=== PATIENT | female | born 2000 | race Hispanic/Latino ===

== ENCOUNTER 2022-05-21 16:45 | Inpatient (IN) | payer MEDICAID ==
[2022-05-21] MEDS ORDERED: DOCUSATE SODIUM 100 MG CAP PO PRN (19:44)
[2022-05-21] MEDS ORDERED: ACETAMINOPHEN 325 MG TAB PO PRN (19:44)
[2022-05-21] MEDS ORDERED: ONDANSETRON 4 MG/2 ML INJ IV PRN (19:44)
--- NOTE | 2022-05-21 19:44 | History and Physical Report ---
History of Present Illness Date of examination: 05/21/22 Date of admission: 05/21/22 Chief complaint: sent from [facility] due to elevated blood pressures History of present illness: Pt present for evaluation to rule out preE due to having elevated blood pressures at [facility] office. She has elevated blood pressures on admission as well. Pt pregancy has been complicated by anit M antibody positive as well as having and elevated AFP for which she was referred to [facility] for evaluation. Plan of care d/w pt and mother. All risk, benefits and alternatives of treatment were d/w pt and questions were addressed and answered.. EDC Confirmation: 09/19/2022 Gestational Age: 22 5/7 weeks Past History : 1 Term Births: 0 Premature Births: 0 Living Children: 0 Para: 0 Prev : 0 Aborta: 0 Elect. Ab: 0 Spont. Ab: 0 Ectopics: 0 Past Medical History: Reviewed and updated today: [facility] 2020 right leg no hospitalization Past Surgical History: Reviewed and updated today: Negative Past Surgical History Family History Summary: Other Family Member - Has No Family History of Ovarvian Cancer - Entered On: 03/31/2022 Other Family Member - Has No Family History of Colon Cancer - Entered On: 03/31/2022 Other Family Member - Has No Family History of Breast Cancer - Entered On: 03/31/2022 Other Family Member - Has Family History of Hypertension - Entered On: 03/31/2022 Social History: Marital Status: Single Children: 0 Occupation: Unemploted Smoking History: Patient has never smoked. 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 Infection History Hx of STD: chlamydia HIV Risk Eval: low risk Hepatitis B Risk Eval: low risk Genetic History Congenital Heart Defect: Mom: no Dad: no [place] Disease: Mom: no Dad: no Thalassemia Mom: no Dad: no Neural Tube Defect Mom: no Dad: no Down's Syndrome Mom: no Dad: no Karl-Sachs Mom: no Dad: no Sickle Cell Disease/Trait Mom: no Dad: no Hemophilia Mom: no Dad: no Muscular Dystrophy Mom: no Dad: no Cystic Fibrosis Mom: no Dad: no [place] Chorea Mom: no Dad: no Mental Retardation Mom: no Dad: no Fragile X Mom: no Dad: no Other Genetic/Chromosomal Disorder Mom: no Dad: no Child w/other defect Mom: no Dad: no Enviromental Exposures Xray Exposure: no Medication, drug, or alcohol use since LMP: no Chemical/Other Exposure: no Exposure to Cat Liter: no Active Medications (reviewed today): None Current Allergies (reviewed today): No known allergies Past History Past Medical History: no pertinent history Past Surgical History: no surgical history [employer] History: chlamydia Family/Genetic History: other (see hpi) Social history: no significant social history, single - Obstetrical History Expected Date of Delivery: 09/19/22 Actual Gestation: 22 Week(s) 5 Day(s) : 1 Medications and Allergies Allergies Allergy/AdvReac Type Severity Reaction Status Date / Time No Known Allergies Allergy Verified 05/21/22 19:12 - Vital Signs Vital signs: Vital Signs Pulse Pulse Ox 70 98 05/21/22 19:07 05/21/22 19:07 Temp Pulse Resp BP Pulse Ox 98.2 F 66 18 143/94 98 05/21/22 19:23 05/21/22 19:42 05/21/22 19:23 05/21/22 19:09 05/21/22 19:42 - Physical Exam Cardiovascular: Regular rate Lungs: Positive: Normal air movement Abdomen: Positive: normal appearance Genitourinary (Female): Positive: normal external genitalia, other (deferred) Deep Tendon Reflex Grade: Normal +2 - Obstetrical FHR: auscultation normal Uterine Contraction Pattern: Absent Results All other labs normal. Assessment and Plan - Patient Problems (1) 22 weeks gestation of Current Visit: Yes Status: Acute (2) Elevated blood pressure affecting in second trimester, antepartum Current Visit: Yes Status: Acute Plan to address problem: -admit -MgSO4 -labetalol if needed -24 hr urine collection and other pih labs -MFM to see pt in the am -all questions regarding plan of care were d/w pt and all questions were addressed and answered
[2022-05-21] MEDS ORDERED: MAGNESIUM SULFATE 4 GM/100 ML BAG IV ONE (19:49)
[2022-05-21 20:57] LABS: Basophils # (Auto) 0.1 K/mm3 (0.0-0.1); Basophils % (Auto) 0.6 % (0.0-1.8); Eosinophils % (Auto) 0.3 % (0.0-4.3); Hematocrit 35.7 % (30.3-42.9); Hemoglobin 12.5 gm/dl (10.1-14.3); Lymphocytes # (Auto) 2.1 K/mm3 (1.2-5.4); Lymphocytes % (Auto) 14.4 % (13.4-35.0); Mean Corpuscular HGB Conc 35 % (30-34); Mean Corpuscular Volume 87 fl (79-97); Monocytes # (Auto) 0.7 K/mm3 (0.0-0.8); Monocytes % (Auto) 4.4 % (0.0-7.3); Platelet Count 200 K/mm3 (140-440); Red Blood Count 4.11 M/mm3 (3.65-5.03); Red Cell Distribution Width 12.9 % (13.2-15.2)
[2022-05-21] MEDS ORDERED: LACTATED RINGERS 1,000 ML ONE (20:57)
[2022-05-21] MEDS ORDERED: LACTATED RINGERS 1,000 ML IV SCH (21:15)
[2022-05-21] MEDS ORDERED: LIDOCAINE (4%) 40 MG/ML TOPICAL SOLN 50 ML BOTTLE TP ONE (21:34)
[2022-05-21] MEDS: MAGNESIUM SULFATE 40GM/1000ML 40 GM/1,000 ML BAG IV SCH (21:52)
[2022-05-21 21:53] LABS: Alanine Aminotransferase 14 units/L (7-56); Albumin 3.5 g/dL (3.9-5); Blood Urea Nitrogen 12 mg/dL (7-17); Hemolysis Index 6
[2022-05-21 21:54] LABS: Alanine Aminotransferase 14 units/L (7-56); Uric Acid 7.6 mg/dL (3.5-7.6)
[2022-05-21] MEDS ORDERED: LIDOCAINE 2% UROJECT 10 ML JELLY UR ONE (22:00)
[2022-05-21 22:26] LABS: BUN/Creatinine Ratio 17
[2022-05-21] MEDS ORDERED: ZOLPIDEM 5 MG TAB PO PRN (23:07)
--- NOTE | 2022-05-22 00:30 | Event Note ---
Date: 05/22/22 Called by RN as pt states she felt as if she was urinating on her self with the cath in. RN noted moisture on perineum that "was very little and not sure if its her normal discharge." She inquired about ÁNGELA. I educated on possible false positive due to cath placement ect. However agreed with testing being sent. All questions were addressed and answered. Will also increase labetalol to 200bid with next dose.
--- NOTE | 2022-05-22 07:39 | Progress Note ---
Assessment and Plan patient c/o of EPSTEIN but reports she feels better. + FM, u/s coming to help locate and document FHT. Dr. Bautista from [facility] to see patient today. I&O adequate. - Patient Problems (1) 22 weeks gestation of Current Visit: Yes Status: Acute (2) Elevated blood pressure affecting in second trimester, antepartum Current Visit: Yes Status: Acute Plan to address problem: Continue mag 2gm and Labetalol 200mg PO BID 24hr urine in progress Monitor for s/s pre-e Subjective - Subjective Date of service: 05/22/22 Principal diagnosis: IUP @ 22+3; IUGR, elevated blood pressure Patient reports: movement normal, no new complaints, no loss of fluid, no vaginal bleeding, no contractions Objective - Vital Signs Vital Signs: Vital Signs - 12hr 05/21/22 05/21/22 05/21/22 19:42 19:47 19:52 Temperature Pulse Rate 66 64 75 Respiratory Rate Blood Pressure O2 Sat by Pulse 98 98 98 Oximetry 05/21/22 05/21/22 05/21/22 19:57 20:02 20:07 Temperature Pulse Rate 78 91 H 66 Respiratory Rate Blood Pressure O2 Sat by Pulse 98 98 99 Oximetry 05/21/22 05/21/22 05/21/22 20:12 20:15 20:17 Temperature Pulse Rate 68 61 61 Respiratory Rate Blood Pressure 147/79 O2 Sat by Pulse 99 100 Oximetry 05/21/22 05/21/22 05/21/22 22:28 22:29 22:41 Temperature Pulse Rate 67 67 65 Respiratory Rate Blood Pressure 140/86 140/86 O2 Sat by Pulse 99 Oximetry 05/21/22 05/21/22 05/21/22 22:46 22:51 22:56 Temperature Pulse Rate 64 65 71 Respiratory Rate Blood Pressure O2 Sat by Pulse 99 100 99 Oximetry 05/21/22 05/21/22 05/21/22 23:01 23:06 23:11 Temperature Pulse Rate 68 69 68 Respiratory Rate Blood Pressure O2 Sat by Pulse 99 99 98 Oximetry 05/21/22 05/21/22 05/21/22 23:15 23:16 23:20 Temperature 98.4 F Pulse Rate 68 73 Respiratory 18 Rate Blood Pressure 133/83 O2 Sat by Pulse 99 100 Oximetry 05/21/22 05/21/22 05/21/22 23:21 23:26 23:31 Temperature Pulse Rate 69 65 84 Respiratory Rate Blood Pressure O2 Sat by Pulse 100 99 99 Oximetry 05/21/22 05/21/22 05/21/22 23:36 23:38 23:42 Temperature Pulse Rate 92 H 47 L Respiratory Rate Blood Pressure O2 Sat by Pulse 98 79 L 77 L Oximetry 05/21/22 05/21/22 05/21/22 23:43 23:47 23:52 Temperature Pulse Rate 75 65 Respiratory Rate Blood Pressure O2 Sat by Pulse 89 99 97 Oximetry 05/21/22 05/21/22 05/22/22 23:57 23:59 00:04 Temperature Pulse Rate 84 115 H Respiratory Rate Blood Pressure O2 Sat by Pulse 99 74 L 85 Oximetry 05/22/22 05/22/22 05/22/22 00:05 00:10 00:15 Temperature Pulse Rate 106 H 66 72 Respiratory Rate Blood Pressure 143/86 O2 Sat by Pulse 77 L 99 98 Oximetry 05/22/22 05/22/22 05/22/22 00:20 00:25 00:30 Temperature Pulse Rate 69 82 71 Respiratory Rate Blood Pressure O2 Sat by Pulse 100 99 99 Oximetry 05/22/22 05/22/22 05/22/22 00:35 00:40 00:45 Temperature Pulse Rate 82 71 86 Respiratory Rate Blood Pressure O2 Sat by Pulse 100 98 99 Oximetry 05/22/22 05/22/22 05/22/22 00:50 00:55 01:00 Temperature Pulse Rate 68 67 70 Respiratory Rate Blood Pressure O2 Sat by Pulse 98 98 98 Oximetry 05/22/22 05/22/22 05/22/22 01:05 01:10 01:15 Temperature Pulse Rate 73 73 75 Respiratory Rate Blood Pressure O2 Sat by Pulse 97 100 98 Oximetry 05/22/22 05/22/22 05/22/22 01:16 01:20 01:25 Temperature Pulse Rate 68 85 78 Respiratory Rate Blood Pressure 141/86 O2 Sat by Pulse 98 98 Oximetry 05/22/22 05/22/22 05/22/22 01:30 01:35 01:40 Temperature Pulse Rate 88 77 82 Respiratory Rate Blood Pressure O2 Sat by Pulse 98 99 99 Oximetry 05/22/22 05/22/22 05/22/22 01:45 01:50 01:55 Temperature Pulse Rate 73 76 80 Respiratory Rate Blood Pressure O2 Sat by Pulse 99 99 99 Oximetry 05/22/22 05/22/22 05/22/22 02:00 02:05 02:10 Temperature Pulse Rate 82 78 88 Respiratory Rate Blood Pressure O2 Sat by Pulse 98 99 98 Oximetry 05/22/22 05/22/22 05/22/22 02:14 02:15 02:18 Temperature Pulse Rate 69 70 83 Respiratory Rate Blood Pressure 141/90 O2 Sat by Pulse 99 90 Oximetry 05/22/22 05/22/22 05/22/22 02:20 02:25 02:30 Temperature Pulse Rate 75 103 H 73 Respiratory Rate Blood Pressure O2 Sat by Pulse 97 99 98 Oximetry 05/22/22 05/22/22 05/22/22 02:35 02:40 02:41 Temperature Pulse Rate 75 80 76 Respiratory Rate Blood Pressure O2 Sat by Pulse 98 99 94 Oximetry 05/22/22 05/22/22 05/22/22 02:45 02:50 02:55 Temperature Pulse Rate 83 72 75 Respiratory Rate Blood Pressure O2 Sat by Pulse 99 99 98 Oximetry 05/22/22 05/22/22 05/22/22 03:00 03:05 03:10 Temperature Pulse Rate 76 71 74 Respiratory Rate Blood Pressure O2 Sat by Pulse 98 98 98 Oximetry 05/22/22 05/22/22 05/22/22 03:15 03:20 03:24 Temperature 98 F Pulse Rate 71 72 Respiratory 16 Rate Blood Pressure 110/69 O2 Sat by Pulse 98 98 98 Oximetry 05/22/22 05/22/22 05/22/22 03:25 03:30 03:35 Temperature Pulse Rate 71 71 73 Respiratory Rate Blood Pressure O2 Sat by Pulse 97 98 97 Oximetry 05/22/22 05/22/22 05/22/22 03:40 03:45 03:50 Temperature Pulse Rate 72 73 73 Respiratory Rate Blood Pressure O2 Sat by Pulse 98 98 98 Oximetry 05/22/22 05/22/22 05/22/22 03:55 04:00 04:05 Temperature Pulse Rate 73 72 71 Respiratory Rate Blood Pressure O2 Sat by Pulse 98 98 98 Oximetry 05/22/22 05/22/22 05/22/22 04:10 04:15 04:20 Temperature Pulse Rate 71 70 65 Respiratory Rate Blood Pressure 113/68 O2 Sat by Pulse 98 98 100 Oximetry 05/22/22 05/22/22 05/22/22 04:25 04:30 04:35 Temperature Pulse Rate 65 71 76 Respiratory Rate Blood Pressure O2 Sat by Pulse 98 98 98 Oximetry 05/22/22 05/22/22 05/22/22 04:40 04:45 04:50 Temperature Pulse Rate 73 65 66 Respiratory Rate Blood Pressure O2 Sat by Pulse 99 99 99 Oximetry 05/22/22 05/22/22 05/22/22 04:55 05:00 05:05 Temperature Pulse Rate 66 66 64 Respiratory Rate Blood Pressure O2 Sat by Pulse 99 98 99 Oximetry 05/22/22 05/22/22 05/22/22 05:10 05:15 05:20 Temperature Pulse Rate 62 90 73 Respiratory Rate Blood Pressure O2 Sat by Pulse 99 99 99 Oximetry 05/22/22 05/22/22 05/22/22 05:25 05:30 05:35 Temperature Pulse Rate 66 67 94 H Respiratory Rate Blood Pressure O2 Sat by Pulse 98 97 94 Oximetry 05/22/22 05/22/22 05/22/22 05:40 05:43 05:45 Temperature Pulse Rate 88 91 H 75 Respiratory Rate Blood Pressure O2 Sat by Pulse 98 91 98 Oximetry 05/22/22 05/22/22 05/22/22 05:50 05:55 05:57 Temperature Pulse Rate 71 70 90 Respiratory Rate Blood Pressure O2 Sat by Pulse 99 98 91 Oximetry 05/22/22 05/22/22 05/22/22 06:00 06:05 06:10 Temperature Pulse Rate 66 64 64 Respiratory Rate Blood Pressure O2 Sat by Pulse 98 99 98 Oximetry 05/22/22 05/22/22 05/22/22 06:15 06:20 06:25 Temperature Pulse Rate 68 67 68 Respiratory Rate Blood Pressure 107/58 O2 Sat by Pulse 98 98 98 Oximetry 05/22/22 05/22/22 05/22/22 06:30 06:35 06:40 Temperature Pulse Rate 76 64 68 Respiratory Rate Blood Pressure O2 Sat by Pulse 98 98 98 Oximetry 05/22/22 05/22/22 05/22/22 06:45 06:50 06:55 Temperature Pulse Rate 74 79 74 Respiratory Rate Blood Pressure O2 Sat by Pulse 99 99 99 Oximetry 05/22/22 05/22/22 05/22/22 06:57 07:00 07:02 Temperature Pulse Rate 90 91 H 85 Respiratory Rate Blood Pressure O2 Sat by Pulse 94 89 94 Oximetry 05/22/22 05/22/22 05/22/22 07:05 07:10 07:15 Temperature Pulse Rate 71 81 84 Respiratory Rate Blood Pressure 136/92 O2 Sat by Pulse 99 98 99 Oximetry 05/22/22 05/22/22 05/22/22 07:20 07:25 07:30 Temperature Pulse Rate 76 89 76 Respiratory Rate Blood Pressure O2 Sat by Pulse 99 99 99 Oximetry 05/22/22 07:35 Temperature Pulse Rate 72 Respiratory Rate Blood Pressure O2 Sat by Pulse 98 Oximetry - Exam Cardiovascular: Regular rate Lungs: Normal air movement Abdomen: Present: normal appearance, soft Uterus: Present: fundal height at umbilicus FHR: other (FHT + via US) Uterine Contraction Monitor Mode: External - Labs Labs: Abnormal Labs 05/21/22 05/21/22 05/22/22 20:30 20:30 00:19 WBC 14.7 H MCHC 35 H RDW 12.9 L Seg Neutrophils % 80.3 H Seg Neutrophils # 11.8 H Carbon Dioxide 20 L Magnesium 4.40 H Total Protein 6.1 L Albumin 3.5 L 05/22/22 05:35 WBC MCHC RDW Seg Neutrophils % Seg Neutrophils # Carbon Dioxide Magnesium 5.40 H Total Protein Albumin Laboratory Results - last 24 hr 05/21/22 05/21/22 05/21/22 20:30 20:30 20:30 WBC 14.7 H RBC 4.11 Hgb 12.5 Hct 35.7 MCV 87 MCH 31 MCHC 35 H RDW 12.9 L Plt Count 200 Lymph % (Auto) 14.4 Cobb % (Auto) 4.4 Eos % (Auto) 0.3 Baso % (Auto) 0.6 Lymph # (Auto) 2.1 Cobb # (Auto) 0.7 Eos # (Auto) 0.0 Baso # (Auto) 0.1 Seg Neutrophils % 80.3 H Seg Neutrophils # 11.8 H Sodium 138 Potassium 4.3 Chloride 105.0 Carbon Dioxide 20 L Anion Gap 17 BUN 12 Creatinine 0.7 0.7 Estimated GFR > 60 > 60 BUN/Creatinine Ratio 17 Glucose 77 Uric Acid 7.6 Calcium 9.0 Magnesium Total Bilirubin 0.50 AST 16 16 ALT 14 14 Alkaline Phosphatase 82 Total Protein 6.1 L Albumin 3.5 L Albumin/Globulin Ratio 1.3 Membranes Rupture 05/22/22 05/22/22 05/22/22 00:15 00:19 05:35 WBC RBC Hgb Hct MCV MCH MCHC RDW Plt Count Lymph % (Auto) Cobb % (Auto) Eos % (Auto) Baso % (Auto) Lymph # (Auto) Cobb # (Auto) Eos # (Auto) Baso # (Auto) Seg Neutrophils % Seg Neutrophils # Sodium Potassium Chloride Carbon Dioxide Anion Gap BUN Creatinine Estimated GFR BUN/Creatinine Ratio Glucose Uric Acid Calcium Magnesium 4.40 H 5.40 H Total Bilirubin AST ALT Alkaline Phosphatase Total Protein Albumin Albumin/Globulin Ratio Membranes Rupture Negative
--- NOTE | 2022-05-22 08:04 | Ultrasound Report ---
LIMITED OBSTETRICAL ULTRASOUND HISTORY: Evaluate viability. FINDINGS: Single viable intrauterine in the breech position. heart tones are 144 bpm. IMPRESSION: Heart tones are present at 144 bpm. Signer Name: Adams Almodovar MD Signed: 05/22/2022 8:00 AM Workstation Name: [employer]
--- NOTE | 2022-05-22 08:06 | Consultation ---
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 Family/Genetic History: other (see hpi) - Obstetrical History : 1 Medications and Allergies Allergies Allergy/AdvReac Type Severity Reaction Status Date / Time No Known Allergies Allergy Verified 05/21/22 19:12 Active Meds: Active Medications Acetaminophen (Acetaminophen 325 Mg Tab) 650 mg PO Q4H PRN PRN Reason: Pain MILD(1-3)/Fever >100.5/EPSTEIN Al Hydrox/Mg Hydrox/Simethicone (Alum-Mag Hydroxide-Simethicone [phone]/5ml Oral Liqd 30 Ml) 30 ml PO Q6H PRN PRN Reason: Indigestion Docusate Sodium (Docusate Sodium 100 Mg Cap) 100 mg PO Q12H PRN PRN Reason: Constipation Magnesium Sulfate (Magnesium Sulfate 40gm/1000ml) 40 gm in 1,000 mls @ 50 mls/hr IV DIRECT ELENA Last Admin: 05/21/22 21:52 Dose: 2 gm/hr, 50 mls/hr Labetalol HCl (Labetalol 200 Mg Tab) 200 mg PO BID [facility] Multivitamins/Iron/Calcium ( Ifs07-Vq Fumarate-Folic Acid Vit Tab) 1 each PO QDAY [facility] Ondansetron HCl (Ondansetron 4 Mg/2 Ml Inj) 4 mg IV Q6H PRN PRN Reason: Nausea And Vomiting Zolpidem Tartrate (Zolpidem 5 Mg Tab) 5 mg PO QHS PRN PRN Reason: Sleep Last Admin: 05/21/22 23:20 Dose: 5 mg - Vital Signs Vital signs: Vital Signs Pulse Pulse Ox 70 98 05/21/22 19:07 05/21/22 19:07 Temp Pulse Resp BP Pulse Ox 98 F 84 16 136/92 94 05/22/22 03:24 05/22/22 08:03 05/22/22 03:24 05/22/22 07:15 05/22/22 08:03 Results Result Diagrams: 05/21/22 20:30 05/21/22 20:30 Abnormal lab results 05/21/22 05/21/22 05/22/22 Range/Units 20:30 20:30 00:19 WBC 14.7 H (4.5-11.0) K/mm3 MCHC 35 H (30-34) % RDW 12.9 L (13.2-15.2) % Seg Neutrophils % 80.3 H (40.0-70.0) % Seg Neutrophils # 11.8 H (1.8-7.7) K/mm3 Carbon Dioxide 20 L (22-30) mmol/L Magnesium 4.40 H (1.7-2.3) mg/dL Total Protein 6.1 L (6.3-8.2) g/dL Albumin 3.5 L (3.9-5) g/dL 05/22/22 Range/Units 05:35 WBC (4.5-11.0) K/mm3 MCHC (30-34) % RDW (13.2-15.2) % Seg Neutrophils % (40.0-70.0) % Seg Neutrophils # (1.8-7.7) K/mm3 Carbon Dioxide (22-30) mmol/L Magnesium 5.40 H (1.7-2.3) mg/dL Total Protein (6.3-8.2) g/dL Albumin (3.9-5) g/dL All other labs normal. Assessment and Plan AMF Pt seen Full consult to follow
[2022-05-22] MEDS ORDERED: LACTATED RINGERS 1,000 ML ONE ×2 (09:28→22:10)
[2022-05-22] MEDS: PRENATAL VIT27-FE FUMARATE-FOLIC ACID VIT TAB PO SCH (12:02)
[2022-05-22] MEDS ORDERED: ACETAMINOPHEN 500 MG TAB ONE (12:26)
[2022-05-22] MEDS ORDERED: ACETAMINOPHEN 500 MG TAB PO SCH (12:30)
--- NOTE | 2022-05-22 17:52 | Event Note ---
<CRISS SANTIAGO - Last Filed: 05/22/22 17:50> Date: 05/22/22 pt c/o worsening feet swelling bilaterally, Facial swelling, vomiting and EPSTEIN. she reports EPSTEIN is helped by Tylenol but not completely resolved. SCDs on legs and feet are being elevated. Will repeat CBC/CMP with next mag level. NICU consult ordered. <BRAXTON BLUE - Last Filed: 05/22/22 21:20> Questions encouraged and answered. Will wait for 24hour urine results, continue MgSO4 for now.
[2022-05-22 18:50] LABS: Alanine Aminotransferase 10 units/L (7-56); Albumin 2.9 g/dL (3.9-5); Blood Urea Nitrogen 11 mg/dL (7-17); Calcium 7.5 mg/dL (8.4-10.2); Hemolysis Index 12
[2022-05-22 18:51] LABS: BUN/Creatinine Ratio 18
[2022-05-22] MEDS ORDERED: ACETAMINOPHEN 325 MG TAB PO PRN (21:13)
[2022-05-22 21:41] LABS: Creatinine,Urine 58.4 mg/dL (0.1-20.0)
[2022-05-22 21:46] LABS: Patient Weight,Urine 204.6 lbs
[2022-05-22 21:47] LABS: Creatinine 24 Hour,Urine 1.3 (0.8-2.8); Creatinine,Urine 59.3 mg/dL (0.1-20.0)
[2022-05-22 22:02] LABS: Protein/Creatinine Ratio,Urine 5.3
[2022-05-22 22:07] LABS: Hematocrit 34.2 % (30.3-42.9); Hemoglobin 11.5 gm/dl (10.1-14.3); Mean Corpuscular HGB Conc 34 % (30-34); Mean Corpuscular Volume 88 fl (79-97); Platelet Count 199 K/mm3 (140-440); Red Blood Count 3.88 M/mm3 (3.65-5.03); Red Cell Distribution Width 12.9 % (13.2-15.2)
[2022-05-23] MEDS: ZOLPIDEM 5 MG TAB PO PRN (00:15)
[2022-05-23 06:29] LABS: Hematocrit 34.1 % (30.3-42.9); Hemoglobin 11.2 gm/dl (10.1-14.3); Mean Corpuscular HGB Conc 33 % (30-34); Mean Corpuscular Volume 89 fl (79-97); Platelet Count 170 K/mm3 (140-440); Red Blood Count 3.82 M/mm3 (3.65-5.03)
[2022-05-23 06:45] LABS: Alanine Aminotransferase 10 units/L (7-56); Albumin 2.7 g/dL (3.9-5); Blood Urea Nitrogen 11 mg/dL (7-17); Hemolysis Index 3
[2022-05-23 06:48] LABS: BUN/Creatinine Ratio 16
--- NOTE | 2022-05-23 08:37 | Progress Note ---
Assessment and Plan A: 21 y.o. @ 22 + wks, IUGR, Pre-eclampsia - Patient Problems (1) 22 weeks gestation of Current Visit: Yes Status: Acute Plan to address problem: Monitor heart rate via doppler. Monitor for s/sx of labor. (2) Anti-M isoimmunization affecting , antepartum Current Visit: Yes Status: Acute (3) Pre-eclampsia in second trimester Current Visit: Yes Status: Acute Plan to address problem: 24 hr urine results as 6908. Awaiting [facility] recommendations. Continue with magnesium infusion for right now. - Mag levels q 6 hrs. Continue with 200mg Labetalol BID. Continue to monitor for worsening s/sx of Pre-eclampisa. Continue to monitor blood pressures. Strict I&O's. (4) Abnormal AFP screen Current Visit: Yes Status: Chronic Plan to address problem: Testing has been completed outpatient and has been WNL. Subjective - Subjective Date of service: 05/23/22 Principal diagnosis: IUP @ 22+ wks; IUGR, Pre-eclampsia Interval history: Pt with c/o periorbital edema. We discussed that this may be d/t severe Pre- eclampsia. She denies shortness of breath, upper abdominal pain, spots before her eyes, ctxs, LOF, and vaginal bleeding. She does endorse some blurred vision, which she attributes to her periorbital edema. She also has some c/o of feeling tired. We discussed that this could be d/t magnesium infusion and Pre-eclampsia. Explained results of 24 hr urine and awaiting [facility] recommendations so that a plan of care can be formulated. Patient reports: movement normal, no new complaints, no loss of fluid, no vaginal bleeding, no contractions Objective - Vital Signs Vital Signs: Vital Signs - 12hr 05/22/22 05/22/22 05/22/22 20:42 20:47 20:52 Pulse Rate 79 82 73 Blood Pressure O2 Sat by Pulse 98 98 96 Oximetry 05/22/22 05/22/22 05/22/22 20:53 20:57 21:02 Pulse Rate 74 79 78 Blood Pressure 141/91 O2 Sat by Pulse 98 99 Oximetry 05/22/22 05/22/22 05/22/22 21:04 21:07 21:12 Pulse Rate 93 H 86 79 Blood Pressure O2 Sat by Pulse 84 99 99 Oximetry 05/22/22 05/22/22 05/22/22 21:17 21:22 21:24 Pulse Rate 93 H 82 74 Blood Pressure 150/102 O2 Sat by Pulse 99 99 Oximetry 05/22/22 05/22/22 05/22/22 21:27 21:32 21:39 Pulse Rate 77 80 128 H Blood Pressure O2 Sat by Pulse 99 100 85 Oximetry 05/22/22 05/22/22 05/22/22 21:44 21:49 21:54 Pulse Rate 75 86 83 Blood Pressure 139/89 O2 Sat by Pulse 100 100 99 Oximetry 05/22/22 05/22/22 05/22/22 21:59 22:04 22:09 Pulse Rate 77 78 75 Blood Pressure O2 Sat by Pulse 100 100 99 Oximetry 05/22/22 05/22/22 05/22/22 22:14 22:19 22:24 Pulse Rate 77 86 85 Blood Pressure 167/98 O2 Sat by Pulse 100 99 100 Oximetry 05/22/22 05/22/22 05/22/22 22:29 22:34 22:39 Pulse Rate 78 72 73 Blood Pressure O2 Sat by Pulse 100 99 100 Oximetry 05/22/22 05/22/22 05/22/22 22:44 22:49 22:54 Pulse Rate 72 97 H 73 Blood Pressure 133/77 O2 Sat by Pulse 100 100 100 Oximetry 05/22/22 05/22/22 05/22/22 22:59 23:04 23:09 Pulse Rate 90 74 76 Blood Pressure O2 Sat by Pulse 100 99 100 Oximetry 05/22/22 05/22/22 05/22/22 23:14 23:19 23:24 Pulse Rate 69 76 76 Blood Pressure 140/73 O2 Sat by Pulse 100 98 99 Oximetry 05/22/22 05/22/22 05/22/22 23:29 23:34 23:39 Pulse Rate 71 66 75 Blood Pressure O2 Sat by Pulse 99 100 100 Oximetry 05/22/22 05/22/22 05/22/22 23:44 23:49 23:54 Pulse Rate 68 85 79 Blood Pressure 141/91 O2 Sat by Pulse 99 97 99 Oximetry 05/22/22 05/23/22 05/23/22 23:59 00:04 00:09 Pulse Rate 68 66 74 Blood Pressure O2 Sat by Pulse 99 99 100 Oximetry 05/23/22 05/23/22 05/23/22 00:14 00:19 00:24 Pulse Rate 70 78 83 Blood Pressure 155/91 O2 Sat by Pulse 98 99 99 Oximetry 05/23/22 05/23/22 05/23/22 00:29 00:34 00:39 Pulse Rate 71 63 65 Blood Pressure O2 Sat by Pulse 99 98 99 Oximetry 05/23/22 05/23/22 05/23/22 00:44 00:45 00:49 Pulse Rate 78 84 65 Blood Pressure O2 Sat by Pulse 98 90 99 Oximetry 05/23/22 05/23/22 05/23/22 00:54 00:59 01:04 Pulse Rate 63 66 63 Blood Pressure 117/58 O2 Sat by Pulse 98 98 98 Oximetry 05/23/22 05/23/22 05/23/22 01:09 01:14 01:19 Pulse Rate 67 64 67 Blood Pressure O2 Sat by Pulse 98 98 98 Oximetry 05/23/22 05/23/22 05/23/22 01:24 01:29 01:34 Pulse Rate 67 91 H 65 Blood Pressure 106/66 O2 Sat by Pulse 98 100 98 Oximetry 05/23/22 05/23/22 05/23/22 01:39 01:44 01:49 Pulse Rate 67 77 79 Blood Pressure O2 Sat by Pulse 98 98 99 Oximetry 05/23/22 05/23/22 05/23/22 01:54 01:59 02:04 Pulse Rate 93 H 71 69 Blood Pressure 137/75 O2 Sat by Pulse 97 98 98 Oximetry 05/23/22 05/23/22 05/23/22 02:09 02:14 02:19 Pulse Rate 71 71 73 Blood Pressure O2 Sat by Pulse 98 98 97 Oximetry 05/23/22 05/23/22 05/23/22 02:24 02:29 02:34 Pulse Rate 73 76 74 Blood Pressure 124/72 O2 Sat by Pulse 97 97 97 Oximetry 05/23/22 05/23/22 05/23/22 02:39 02:44 02:49 Pulse Rate 74 78 78 Blood Pressure O2 Sat by Pulse 97 97 97 Oximetry 05/23/22 05/23/22 05/23/22 02:54 02:59 03:04 Pulse Rate 77 72 69 Blood Pressure 121/66 O2 Sat by Pulse 97 97 98 Oximetry 05/23/22 05/23/22 05/23/22 03:09 03:14 03:19 Pulse Rate 69 73 74 Blood Pressure O2 Sat by Pulse 98 97 97 Oximetry 05/23/22 05/23/22 05/23/22 03:24 03:29 03:34 Pulse Rate 73 66 69 Blood Pressure O2 Sat by Pulse 97 97 96 Oximetry 05/23/22 05/23/22 05/23/22 03:39 03:44 03:49 Pulse Rate 73 71 71 Blood Pressure O2 Sat by Pulse 96 96 95 Oximetry 05/23/22 05/23/22 05/23/22 03:54 03:59 04:04 Pulse Rate 82 78 78 Blood Pressure O2 Sat by Pulse 95 98 98 Oximetry 05/23/22 05/23/22 05/23/22 04:09 04:10 04:14 Pulse Rate 74 72 73 Blood Pressure 142/87 O2 Sat by Pulse 98 97 Oximetry 05/23/22 05/23/22 05/23/22 04:19 04:24 04:29 Pulse Rate 70 78 71 Blood Pressure 131/75 O2 Sat by Pulse 96 98 97 Oximetry 05/23/22 05/23/22 05/23/22 04:34 04:39 04:44 Pulse Rate 73 73 70 Blood Pressure O2 Sat by Pulse 97 97 97 Oximetry 05/23/22 05/23/22 05/23/22 04:49 04:54 04:59 Pulse Rate 70 75 87 Blood Pressure 135/80 O2 Sat by Pulse 99 98 99 Oximetry 05/23/22 05/23/22 05/23/22 05:04 05:09 05:14 Pulse Rate 103 H 93 H 79 Blood Pressure O2 Sat by Pulse 98 98 98 Oximetry 05/23/22 05/23/22 05/23/22 05:19 05:24 05:29 Pulse Rate 88 91 H 83 Blood Pressure 128/69 O2 Sat by Pulse 99 99 98 Oximetry 05/23/22 05/23/22 05/23/22 05:34 05:39 07:25 Pulse Rate 88 87 75 Blood Pressure 119/68 O2 Sat by Pulse 99 98 Oximetry 05/23/22 05/23/22 07:54 08:24 Pulse Rate 77 74 Blood Pressure 109/56 104/53 O2 Sat by Pulse Oximetry - Exam Narrative Exam: Adequate I&O's. Scott catheter draining clear yellow urine. Blood pressure ranges have been 104-142/53-87. Cardiovascular: Normal S1, Normal S2 Lungs: Clear to auscultation Abdomen: Present: normal appearance, soft FHR: other (FHR via doppler q shift, + FHR) Extremities: edema (+2 edema noted to bilateral hands, feet, and + 1 edema periorbital ) Deep Tendon Reflex Grade: Normal +2 - Labs Labs: Abnormal Labs 05/21/22 05/21/22 05/21/22 19:44 19:44 20:30 WBC MCHC RDW Seg Neutrophils % Seg Neutrophils # Sodium Carbon Dioxide 20 L Calcium Magnesium Total Protein 6.1 L Albumin 3.5 L Urine Creatinine 59.3 H 58.4 H Ur Total Protein 24 Hr 6908.00 H Urine Total Protein 314 H 05/21/22 05/22/22 05/22/22 20:30 00:19 05:35 WBC 14.7 H MCHC 35 H RDW 12.9 L Seg Neutrophils % 80.3 H Seg Neutrophils # 11.8 H Sodium Carbon Dioxide Calcium Magnesium 4.40 H 5.40 H Total Protein Albumin Urine Creatinine Ur Total Protein 24 Hr Urine Total Protein 05/22/22 05/22/22 05/22/22 11:59 17:51 17:57 WBC MCHC RDW Seg Neutrophils % Seg Neutrophils # Sodium 136 L Carbon Dioxide 20 L Calcium 7.5 L D Magnesium 6.00 H 6.40 H Total Protein 4.8 L D Albumin 2.9 L Urine Creatinine Ur Total Protein 24 Hr Urine Total Protein 05/22/22 05/23/22 05/23/22 21:52 00:19 05:42 WBC 13.2 H MCHC RDW 12.9 L Seg Neutrophils % Seg Neutrophils # Sodium Carbon Dioxide 21 L Calcium 7.0 L Magnesium 6.40 H 6.20 H Total Protein 4.6 L Albumin 2.7 L Urine Creatinine Ur Total Protein 24 Hr Urine Total Protein 05/23/22 05:42 WBC 11.8 H MCHC RDW 13.0 L Seg Neutrophils % Seg Neutrophils # Sodium Carbon Dioxide Calcium Magnesium Total Protein Albumin Urine Creatinine Ur Total Protein 24 Hr Urine Total Protein Laboratory Results - last 24 hr 05/21/22 05/21/22 05/22/22 19:44 19:44 09:50 WBC RBC Hgb Hct MCV MCH MCHC RDW Plt Count Sodium Potassium Chloride Carbon Dioxide Anion Gap BUN Creatinine Estimated GFR BUN/Creatinine Ratio Glucose Calcium Magnesium Total Bilirubin AST ALT Alkaline Phosphatase Total Protein Albumin Albumin/Globulin Ratio Urine Total Volume 2200 2200 Urine Creatinine 59.3 H 58.4 H Ur Creatinine 24 Hour 1.3 Height (in) 64.0 Weight (lb) 204.6 Creatinine Clearance 130 Ur Total Protein 24 Hr 6908.00 H Protein/Creatinin Ratio 5.30 Urine Total Protein 314 H SARS-CoV-2 (PCR) Negative 05/22/22 05/22/22 05/22/22 11:59 17:51 17:57 WBC RBC Hgb Hct MCV MCH MCHC RDW Plt Count Sodium 136 L Potassium 4.5 Chloride 104.8 Carbon Dioxide 20 L Anion Gap 16 BUN 11 Creatinine 0.6 Estimated GFR > 60 BUN/Creatinine Ratio 18 Glucose 87 Calcium 7.5 L D Magnesium 6.00 H 6.40 H Total Bilirubin 0.20 AST 16 ALT 10 Alkaline Phosphatase 71 Total Protein 4.8 L D Albumin 2.9 L Albumin/Globulin Ratio 1.5 Urine Total Volume Urine Creatinine Ur Creatinine 24 Hour Height (in) Weight (lb) Creatinine Clearance Ur Total Protein 24 Hr Protein/Creatinin Ratio Urine Total Protein SARS-CoV-2 (PCR) 05/22/22 05/23/22 05/23/22 21:52 00:19 05:42 WBC 13.2 H RBC 3.88 Hgb 11.5 Hct 34.2 MCV 88 MCH 30 MCHC 34 RDW 12.9 L Plt Count 199 Sodium 138 Potassium 4.6 Chloride 106.3 Carbon Dioxide 21 L Anion Gap 15 BUN 11 Creatinine 0.7 Estimated GFR > 60 BUN/Creatinine Ratio 16 Glucose 80 Calcium 7.0 L Magnesium 6.40 H 6.20 H Total Bilirubin 0.20 AST 13 ALT 10 Alkaline Phosphatase 68 Total Protein 4.6 L Albumin 2.7 L Albumin/Globulin Ratio 1.4 Urine Total Volume Urine Creatinine Ur Creatinine 24 Hour Height (in) Weight (lb) Creatinine Clearance Ur Total Protein 24 Hr Protein/Creatinin Ratio Urine Total Protein SARS-CoV-2 (PCR) 05/23/22 05:42 WBC 11.8 H RBC 3.82 Hgb 11.2 Hct 34.1 MCV 89 MCH 29 MCHC 33 RDW 13.0 L Plt Count 170 Sodium Potassium Chloride Carbon Dioxide Anion Gap BUN Creatinine Estimated GFR BUN/Creatinine Ratio Glucose Calcium Magnesium Total Bilirubin AST ALT Alkaline Phosphatase Total Protein Albumin Albumin/Globulin Ratio Urine Total Volume Urine Creatinine Ur Creatinine 24 Hour Height (in) Weight (lb) Creatinine Clearance Ur Total Protein 24 Hr Protein/Creatinin Ratio Urine Total Protein SARS-CoV-2 (PCR)
[2022-05-23] MEDS: PRENATAL VIT27-FE FUMARATE-FOLIC ACID VIT TAB PO SCH (09:53)
[2022-05-23] MEDS ORDERED: LACTATED RINGERS 1,000 ML ONE (11:34)
[2022-05-23] MEDS: MAGNESIUM SULFATE 40GM/1000ML 40 GM/1,000 ML BAG IV SCH (11:39)
--- NOTE | 2022-05-23 18:16 | Progress Note ---
Assessment and Plan - Patient Problems (1) Elevated blood pressure affecting in second trimester, antepartum Current Visit: Yes Status: Acute Plan to address problem: -Patient has been on MgSO4 for >24 hours, would recommend stopping at this time; given blood pressures in non-severe range. -Continue antihypertensive medication, and titrate as needed -Consider inpatient management for now until delivery at 34 weeks or sooner, if worsening of labs (HELLP Syndrome), persistent Cat II tracing or Cat III tracing; placental abruption, labor Patient also noted to have growth restriction: -Patient desires to have everything done for this -Would recommend 30 minute tracing twice daily and BPP twice weekly starting at 24 weeks -UA dopplers weekly and interval growth ultrasound q2 weeks (2) Abnormal AFP screen Current Visit: Yes Status: Chronic Plan to address problem: Known elevated MSAFP; anatomical survey has already been performed outpatient Subjective Date of service: 05/23/22 Principal diagnosis: IUP @ 22+3; IUGR, elevated blood pressure Interval history: Patient reports feeling tired, headache, and not really feeling well on MgSO4. Otherwise she has no obstetrical complaints this time. Objective - Constitutional Vitals: Vital Signs - 12hr 05/23/22 05/23/22 05/23/22 07:25 07:54 08:24 Temperature Pulse Rate 75 77 74 Respiratory Rate Blood Pressure 119/68 109/56 104/53 O2 Sat by Pulse Oximetry [ Posterior Bilateral Throughout] 05/23/22 05/23/22 05/23/22 09:04 09:07 09:52 Temperature 97.9 F Pulse Rate 82 Respiratory 20 Rate Blood Pressure 124/75 O2 Sat by Pulse 100 Oximetry [ Posterior Bilateral Throughout] 05/23/22 05/23/22 05/23/22 10:23 10:54 11:23 Temperature Pulse Rate 74 75 75 Respiratory Rate Blood Pressure 133/86 159/91 134/83 O2 Sat by Pulse Oximetry [ Posterior Bilateral Throughout] 05/23/22 05/23/22 05/23/22 11:44 11:54 12:24 Temperature 98 F Pulse Rate 78 87 Respiratory 19 Rate Blood Pressure 109/57 109/61 O2 Sat by Pulse Oximetry [ Posterior Bilateral Throughout] 05/23/22 05/23/22 05/23/22 12:53 13:23 13:53 Temperature Pulse Rate 75 74 72 Respiratory Rate Blood Pressure 126/83 126/81 121/77 O2 Sat by Pulse Oximetry [ Posterior Bilateral Throughout] 05/23/22 05/23/22 05/23/22 14:23 14:53 15:24 Temperature Pulse Rate 81 81 74 Respiratory Rate Blood Pressure 131/85 132/88 124/73 O2 Sat by Pulse Oximetry [ Posterior Bilateral Throughout] 05/23/22 05/23/22 05/23/22 16:53 16:54 17:54 Temperature 98.2 F Pulse Rate 83 74 Respiratory Rate Blood Pressure 127/73 120/64 O2 Sat by Pulse Oximetry [ Posterior Bilateral Throughout] General appearance: Present: no acute distress - EENT Eyes: PERRL, EOM intact - Neck Neck: supple - Respiratory Respiratory effort: normal - Breasts Breasts: deferred Extremity abnormal: edema - Gastrointestinal General gastrointestinal: Present: non-tender Rectal Exam: deferred - Genitourinary Female genitourinary: deferred - Integumentary Integumentary: clear, warm, dry - Psychiatric Psychiatric: appropriate mood/affect - Labs CBC & Chem 7: 05/23/22 05:42 05/23/22 05:42 Labs: Abnormal lab results 05/21/22 05/21/22 05/22/22 Range/Units 19:44 19:44 17:51 WBC (4.5-11.0) K/mm3 RDW (13.2-15.2) % Sodium (137-145) mmol/L Carbon Dioxide (22-30) mmol/L Calcium (8.4-10.2) mg/dL Magnesium 6.40 H (1.7-2.3) mg/dL Total Protein (6.3-8.2) g/dL Albumin (3.9-5) g/dL Urine Creatinine 59.3 H 58.4 H (0.1-20.0) mg/dL Ur Total Protein 24 Hr 6908.00 H (2-200) mg/dL Urine Total Protein 314 H (5-11.8) mg/dL 05/22/22 05/22/22 05/23/22 Range/Units 17:57 21:52 00:19 WBC 13.2 H (4.5-11.0) K/mm3 RDW 12.9 L (13.2-15.2) % Sodium 136 L (137-145) mmol/L Carbon Dioxide 20 L (22-30) mmol/L Calcium 7.5 L D (8.4-10.2) mg/dL Magnesium 6.40 H (1.7-2.3) mg/dL Total Protein 4.8 L D (6.3-8.2) g/dL Albumin 2.9 L (3.9-5) g/dL Urine Creatinine (0.1-20.0) mg/dL Ur Total Protein 24 Hr (2-200) mg/dL Urine Total Protein (5-11.8) mg/dL 05/23/22 05/23/22 Range/Units 05:42 05:42 WBC 11.8 H (4.5-11.0) K/mm3 RDW 13.0 L (13.2-15.2) % Sodium (137-145) mmol/L Carbon Dioxide 21 L (22-30) mmol/L Calcium 7.0 L (8.4-10.2) mg/dL Magnesium 6.20 H (1.7-2.3) mg/dL Total Protein 4.6 L (6.3-8.2) g/dL Albumin 2.7 L (3.9-5) g/dL Urine Creatinine (0.1-20.0) mg/dL Ur Total Protein 24 Hr (2-200) mg/dL Urine Total Protein (5-11.8) mg/dL Medications & Allergies - Medications Allergies/Adverse Reactions: Allergies No Known Allergies Allergy (Verified 05/21/22 19:12) Active Medications: Generic Name Dose Route Start Last Admin Trade Name Freq PRN Reason Stop Dose Admin Acetaminophen 650 mg 05/22/22 21:13 Acetaminophen 325 Mg Tab PO Q6H PRN Pain MILD(1-3)/Fever >100.5/EPSTEIN Al Hydrox/Mg Hydrox/Simethicone 30 ml 05/21/22 19:44 Alum-Mag Hydroxide-Simethicone 891-749-59iz/5ml Oral Liqd 30 Ml PO Q6H PRN Indigestion Docusate Sodium 100 mg 05/21/22 19:44 Docusate Sodium 100 Mg Cap PO Q12H PRN Constipation Magnesium Sulfate 40 gm in 1,000 mls @ 50 mls/hr 05/21/22 20:00 05/23/22 11:39 Magnesium Sulfate 40gm/1000ml IV 2 gm/hr DIRECT ELENA 50 mls/hr Administration 2 GM/HR Labetalol HCl 200 mg 05/22/22 10:00 05/23/22 09:53 Labetalol 200 Mg Tab PO 200 mg BID ELENA Administration Multivitamins/Iron/Calcium 1 each 05/22/22 10:00 05/23/22 09:53 Sus27-Ia Fumarate-Folic Acid Vit Tab PO 1 each QDAY ELENA Administration Ondansetron HCl 4 mg 05/21/22 19:44 Ondansetron 4 Mg/2 Ml Inj IV Q6H PRN Nausea And Vomiting Zolpidem Tartrate 10 mg 05/23/22 00:12 05/23/22 00:15 Zolpidem 5 Mg Tab PO 10 mg QHS PRN Administration Sleep
--- NOTE | 2022-05-23 20:00 | Event Note ---
Date: 05/23/22 Pt and mother request to speak with primary team MD provider. I d/w them indications for delivery and how the mode of delivery would be determined based on pt status and position. Several questions were addressed and answered. Both expressed understanding and state that they feel much better.
[2022-05-23] MEDS ORDERED: ZOLPIDEM 5 MG TAB PO PRN (23:07)
[2022-05-24] MEDS ORDERED: PRENATAL VIT27-FE FUMARATE-FOLIC ACID VIT TAB PO SCH (10:00)
[2022-05-24] MEDS: PRENATAL VIT27-FE FUMARATE-FOLIC ACID VIT TAB PO SCH (10:15)
--- NOTE | 2022-05-24 10:59 | Progress Note ---
Assessment and Plan - Patient Problems (1) 23 weeks gestation of Current Visit: Yes Status: Acute (2) Pre-eclampsia in second trimester Current Visit: Yes Status: Acute Plan to address problem: Plan of care discussed with patient and her mother. Questions encouraged and answered. They voiced understanding and agree with POC Continue close observation CMP. CBC ordered for today Per AMFM: -Continue antihypertensive medication, and titrate as needed -Consider inpatient management for now until delivery at 34 weeks or sooner, if worsening of labs (HELLP Syndrome), persistent Cat II tracing or Cat III tracing; placental abruption, labor (3) growth restriction Current Visit: Yes Status: Acute Plan to address problem: Per AMFM: Patient also noted to have growth restriction: -Patient desires to have everything done for this -Would recommend 30 minute tracing twice daily and BPP twice weekly starting at 24 weeks -UA dopplers weekly and interval growth ultrasound q2 weeks (4) Abnormal AFP screen Current Visit: Yes Status: Chronic Plan to address problem: Neonatology consultation pending (5) Anti-M isoimmunization affecting , antepartum Current Visit: Yes Status: Acute Qualifiers: Fetus number: single or unspecified fetus Qualified Code(s): O36.1990 - Maternal care for other isoimmunization, unspecified trimester, not applicable or unspecified Plan to address problem: Patient denies history of blood transfusion T&S ordered Subjective - Subjective Date of service: 05/24/22 Principal diagnosis: IUP @ 23 1/6 wks; IUGR, Pre-eclampsia Patient reports: movement normal, no new complaints, no loss of fluid, no vaginal bleeding, no contractions Objective - Vital Signs Vital Signs: Vital Signs - 12hr 05/24/22 05/24/22 05/24/22 08:27 08:29 08:32 Temperature 98 F Pulse Rate 85 60 62 Respiratory 18 Rate Blood Pressure 147/90 O2 Sat by Pulse 97 97 Oximetry O2 Sat by Pulse Oximetry [ Posterior Bilateral Throughout] 05/24/22 05/24/22 05/24/22 08:33 08:39 08:43 Temperature Pulse Rate 121 H 134 H Respiratory Rate Blood Pressure O2 Sat by Pulse 88 87 86 Oximetry O2 Sat by Pulse Oximetry [ Posterior Bilateral Throughout] 05/24/22 05/24/22 05/24/22 08:44 08:51 08:54 Temperature Pulse Rate 136 H 61 Respiratory Rate Blood Pressure 138/84 O2 Sat by Pulse 87 Oximetry O2 Sat by Pulse 98 Oximetry [ Posterior Bilateral Throughout] 05/24/22 05/24/22 05/24/22 09:10 09:11 09:16 Temperature Pulse Rate 84 75 Respiratory Rate Blood Pressure O2 Sat by Pulse 90 88 96 Oximetry O2 Sat by Pulse Oximetry [ Posterior Bilateral Throughout] 05/24/22 05/24/22 05/24/22 09:21 09:24 09:27 Temperature Pulse Rate 86 64 66 Respiratory Rate Blood Pressure 137/77 O2 Sat by Pulse 96 96 Oximetry O2 Sat by Pulse Oximetry [ Posterior Bilateral Throughout] 05/24/22 05/24/22 05/24/22 09:31 09:32 09:37 Temperature Pulse Rate 65 65 69 Respiratory Rate Blood Pressure O2 Sat by Pulse 90 97 97 Oximetry O2 Sat by Pulse Oximetry [ Posterior Bilateral Throughout] 05/24/22 05/24/22 05/24/22 09:42 09:47 09:52 Temperature Pulse Rate 74 66 78 Respiratory Rate Blood Pressure O2 Sat by Pulse 97 98 98 Oximetry O2 Sat by Pulse Oximetry [ Posterior Bilateral Throughout] 05/24/22 05/24/22 05/24/22 09:57 10:02 10:07 Temperature Pulse Rate 71 69 72 Respiratory Rate Blood Pressure O2 Sat by Pulse 97 98 98 Oximetry O2 Sat by Pulse Oximetry [ Posterior Bilateral Throughout] 05/24/22 05/24/22 05/24/22 10:12 10:15 10:17 Temperature Pulse Rate 64 79 Respiratory Rate Blood Pressure 137/77 O2 Sat by Pulse 97 97 Oximetry O2 Sat by Pulse Oximetry [ Posterior Bilateral Throughout] 05/24/22 05/24/22 05/24/22 10:22 10:35 10:53 Temperature Pulse Rate 66 63 54 L Respiratory Rate Blood Pressure O2 Sat by Pulse 80 L 82 L 0 L Oximetry O2 Sat by Pulse Oximetry [ Posterior Bilateral Throughout] - Exam Breasts: deferred Cardiovascular: Regular rate Lungs: Normal air movement - Labs Labs: Abnormal Labs 05/21/22 05/21/22 05/21/22 19:44 19:44 20:30 WBC MCHC RDW Seg Neutrophils % Seg Neutrophils # Sodium Carbon Dioxide 20 L Calcium Magnesium Total Protein 6.1 L Albumin 3.5 L Urine Creatinine 59.3 H 58.4 H Ur Total Protein 24 Hr 6908.00 H Urine Total Protein 314 H 05/21/22 05/22/22 05/22/22 20:30 00:19 05:35 WBC 14.7 H MCHC 35 H RDW 12.9 L Seg Neutrophils % 80.3 H Seg Neutrophils # 11.8 H Sodium Carbon Dioxide Calcium Magnesium 4.40 H 5.40 H Total Protein Albumin Urine Creatinine Ur Total Protein 24 Hr Urine Total Protein 05/22/22 05/22/22 05/22/22 11:59 17:51 17:57 WBC MCHC RDW Seg Neutrophils % Seg Neutrophils # Sodium 136 L Carbon Dioxide 20 L Calcium 7.5 L D Magnesium 6.00 H 6.40 H Total Protein 4.8 L D Albumin 2.9 L Urine Creatinine Ur Total Protein 24 Hr Urine Total Protein 05/22/22 05/23/22 05/23/22 21:52 00:19 05:42 WBC 13.2 H MCHC RDW 12.9 L Seg Neutrophils % Seg Neutrophils # Sodium Carbon Dioxide 21 L Calcium 7.0 L Magnesium 6.40 H 6.20 H Total Protein 4.6 L Albumin 2.7 L Urine Creatinine Ur Total Protein 24 Hr Urine Total Protein 05/23/22 05/23/22 05/24/22 05:42 18:18 00:11 WBC 11.8 H MCHC RDW 13.0 L Seg Neutrophils % Seg Neutrophils # Sodium Carbon Dioxide Calcium Magnesium 6.60 H 4.60 H Total Protein Albumin Urine Creatinine Ur Total Protein 24 Hr Urine Total Protein Laboratory Results - last 24 hr 05/23/22 05/24/22 18:18 00:11 Magnesium 6.60 H 4.60 H
[2022-05-24 12:33] LABS: Hematocrit 32.3 % (30.3-42.9); Mean Corpuscular HGB Conc 34 % (30-34); Mean Corpuscular Volume 88 fl (79-97); Platelet Count 164 K/mm3 (140-440); Red Blood Count 3.67 M/mm3 (3.65-5.03)
[2022-05-24 12:43] LABS: Alanine Aminotransferase 10 units/L (7-56); Albumin 2.8 g/dL (3.9-5); Blood Urea Nitrogen 13 mg/dL (7-17); Calcium 7.2 mg/dL (8.4-10.2); Hemolysis Index 7
[2022-05-24 12:46] LABS: BUN/Creatinine Ratio 19
--- NOTE | 2022-05-24 14:54 | Ultrasound Report ---
ULTRASOUND OBSTETRIC INDICATION / CLINICAL INFORMATION: weight, Percentile growth, HONG and presentation. - Clinical Gestational Age (GA) in weeks, days: 23, 2 TECHNIQUE: Transabdominal. COMPARISON: Ultrasound dated 05/22/22 FINDINGS: Single intrauterine . Biparietal Diameter = 5.1 cm = 21, 1 weeks, days Head Circumference = 20.2 cm = 22, 3 weeks, days Abdominal Circumference = 17.6 cm = 22, 4 weeks, days Femur Length = 3.3 cm = 20, 2 weeks, days Average Ultrasound Age (AUA) = 21, 5 weeks, days Heart Rate: 143 beats per minute. Estimated Weight in grams (if calculated): 435 g Estimated Weight Growth Percentile (if calculated): 2% Position: breech. Cervix: closed. Length in cm (if measured): Not measured Placenta: posterofundal and free of the os. Amniotic Fluid Volume: normal Amniotic Fluid Index (HONG) in cm (if calculated): Not calculated. Maternal Adnexa: Not evaluated IMPRESSION: 1. Single, living intrauterine with estimated sonographic age of 21, 5 weeks, days. 2. No acute sonographic abnormality. Signer Name: Rodrigo Lindsey MD Signed: 05/24/2022 2:49 PM Workstation Name: [id number]
--- NOTE | 2022-05-24 17:33 | Consultation ---
Consult Note - Parent Education I met with parent(s) and discussed the following:: Need for NICU admission, Poss ible need for intubation and surfactant or other resp support, Temperature regulation, Head ultrasounds to evaluate IVH, Eye exams for ROP screening, Possible need for IV fluids/TPN and IV antibiotics, Possible need for umbilical lines, Importance of providing breast milk & encouraged pumping aft delivery, Donor breast milk if baby meets criteria after , Slow feeding advancement and monitoring of tolerance. NG/OG feeds, Need to monitor for jaundice, Data for survival & survival without significant co-morbidities Parent(s) demonstrated understanding of all the information:: Yes Additional Comment: The following survival and morbididty statistics were discussed with mom based on 23.1 week gestation with EFW 435 grams: 32% , 96% RDS, 75% CLD, 30% Home Oxygen requirment, 10% IVH, 25% Sepsis, 10% NEC, 54% ROP, 16% Cerebral Palsey, 13% Visual Impairment, 5% hearing loss. Assessment and Plan - Assessment Gestation:: 23 Estimated Weight: 435 g Baby's gender: Male Baby's name: Jayesh Rodriguez Additional Comment: US on 05/24: Single, living intrauterine with estimated sonographic age of 21, 5 weeks, days. Heart Rate: 143 beats per minute.Estimated Weight in grams (if calculated): 435 g. Estimated Weight Growth Percentile (if calculated): 2% - Plan Plan: Agree with Magnesium therapy Consider steroids within the next 24-48 hours Neonatology team will attend delivery Please call NICU with questions Total time spent with mom during consultation ~30 mins. Ally Padilla APRN, SETTLEMENT CLERK-BC
[2022-05-24] MEDS: ZOLPIDEM 5 MG TAB PO PRN (22:37)
--- NOTE | 2022-05-25 10:59 | Progress Note ---
Assessment and Plan - Patient Problems (1) 23 weeks gestation of Current Visit: Yes Status: Acute (2) Pre-eclampsia in second trimester Current Visit: Yes Status: Acute Plan to address problem: Plan of care discussed with patient. Questions answered and patient voiced understanding. Continue close observation CMP CBC ordered for tomorrow AM Per AMFM: -Continue antihypertensive medication, and titrate as needed -Consider inpatient management for now until delivery at 34 weeks or sooner, if worsening of labs (HELLP Syndrome), persistent Cat II tracing or Cat III arcenio ng; placental abruption, labor (3) growth restriction Current Visit: Yes Status: Acute Plan to address problem: Patient with intrauterine growth restriction at the 2%ile: -Patient desires to have everything done for this -30 minute tracing twice daily and BPP twice weekly starting at 24 weeks -UA dopplers weekly and interval growth ultrasound q2 weeks -Betamethasone x2 for lung maturity ordered per recommendation of NICU team (4) Abnormal AFP screen Current Visit: Yes Status: Chronic Plan to address problem: s/p NICU consult Agree with MgSO4 Recommend steroids with in next 24 hours. Betamthasone x2 ordered (5) Anti-M isoimmunization affecting , antepartum Current Visit: Yes Status: Acute Qualifiers: Fetus number: single or unspecified fetus Qualified Code(s): O36.1990 - Maternal care for other isoimmunization, unspecified trimester, not applicable or unspecified Plan to address problem: s/p Type and screen Subjective - Subjective Date of service: 05/25/22 Principal diagnosis: IUP @ 23 2/6 wks; IUGR, Pre-eclampsia Interval history: Patient voices no complaints. Had a nosebleed last evening, but nothing since. Had some SOB while on Mag, but notes since it has stoppped, symptoms have resolved. Denies chest pain, headache, RUQ/epigastric pain. Patient reports: movement normal, no new complaints, no loss of fluid, no vaginal bleeding, no contractions Objective - Vital Signs Vital Signs: Vital Signs - 12hr 05/24/22 05/24/22 05/24/22 23:02 23:07 23:12 Temperature Pulse Rate 68 72 90 Respiratory Rate Blood Pressure O2 Sat by Pulse 99 99 99 Oximetry O2 Sat by Pulse Oximetry [ Posterior Bilateral Throughout] 05/24/22 05/24/22 05/24/22 23:17 23:22 23:25 Temperature Pulse Rate 63 60 85 Respiratory Rate Blood Pressure O2 Sat by Pulse 99 99 90 Oximetry O2 Sat by Pulse Oximetry [ Posterior Bilateral Throughout] 05/24/22 05/24/22 05/25/22 23:29 23:33 00:21 Temperature Pulse Rate 156 H Respiratory Rate Blood Pressure O2 Sat by Pulse 89 88 22 L Oximetry O2 Sat by Pulse Oximetry [ Posterior Bilateral Throughout] 05/25/22 05/25/22 05/25/22 00:22 00:47 00:57 Temperature Pulse Rate 113 H Respiratory Rate Blood Pressure O2 Sat by Pulse 90 18 L 94 Oximetry O2 Sat by Pulse Oximetry [ Posterior Bilateral Throughout] 05/25/22 05/25/22 05/25/22 01:03 01:08 01:12 Temperature Pulse Rate Respiratory Rate Blood Pressure O2 Sat by Pulse 37 L 61 L 52 L Oximetry O2 Sat by Pulse Oximetry [ Posterior Bilateral Throughout] 05/25/22 05/25/22 05/25/22 01:14 01:19 01:31 Temperature Pulse Rate 164 H 52 L Respiratory Rate Blood Pressure O2 Sat by Pulse 0 L 74 L 73 L Oximetry O2 Sat by Pulse Oximetry [ Posterior Bilateral Throughout] 05/25/22 05/25/22 05/25/22 01:40 01:51 01:52 Temperature Pulse Rate 149 H 84 Respiratory Rate Blood Pressure O2 Sat by Pulse 0 L 65 L 84 Oximetry O2 Sat by Pulse Oximetry [ Posterior Bilateral Throughout] 05/25/22 05/25/22 05/25/22 01:57 02:02 02:07 Temperature Pulse Rate 72 78 59 L Respiratory Rate Blood Pressure 140/91 O2 Sat by Pulse 99 100 98 Oximetry O2 Sat by Pulse Oximetry [ Posterior Bilateral Throughout] 05/25/22 05/25/22 05/25/22 02:12 02:17 02:22 Temperature Pulse Rate 59 L 58 L 59 L Respiratory Rate Blood Pressure O2 Sat by Pulse 98 98 97 Oximetry O2 Sat by Pulse Oximetry [ Posterior Bilateral Throughout] 05/25/22 05/25/22 05/25/22 02:27 02:32 02:37 Temperature Pulse Rate 61 63 64 Respiratory Rate Blood Pressure O2 Sat by Pulse 97 96 96 Oximetry O2 Sat by Pulse Oximetry [ Posterior Bilateral Throughout] 05/25/22 05/25/22 05/25/22 02:42 02:47 02:52 Temperature Pulse Rate 64 65 66 Respiratory Rate Blood Pressure O2 Sat by Pulse 96 96 96 Oximetry O2 Sat by Pulse Oximetry [ Posterior Bilateral Throughout] 05/25/22 05/25/22 05/25/22 02:54 02:57 07:45 Temperature Pulse Rate 78 67 78 Respiratory Rate Blood Pressure O2 Sat by Pulse 94 96 97 Oximetry O2 Sat by Pulse Oximetry [ Posterior Bilateral Throughout] 05/25/22 05/25/22 05/25/22 07:50 07:55 08:00 Temperature Pulse Rate 61 83 64 Respiratory Rate Blood Pressure O2 Sat by Pulse 99 99 97 Oximetry O2 Sat by Pulse Oximetry [ Posterior Bilateral Throughout] 05/25/22 05/25/22 05/25/22 08:01 08:05 08:10 Temperature Pulse Rate 78 63 86 Respiratory Rate Blood Pressure O2 Sat by Pulse 93 99 98 Oximetry O2 Sat by Pulse Oximetry [ Posterior Bilateral Throughout] 05/25/22 05/25/22 05/25/22 08:15 08:20 08:25 Temperature Pulse Rate 81 69 70 Respiratory Rate Blood Pressure O2 Sat by Pulse 97 100 99 Oximetry O2 Sat by Pulse Oximetry [ Posterior Bilateral Throughout] 05/25/22 05/25/22 05/25/22 08:30 08:35 08:40 Temperature Pulse Rate 61 63 68 Respiratory Rate Blood Pressure O2 Sat by Pulse 99 98 96 Oximetry O2 Sat by Pulse Oximetry [ Posterior Bilateral Throughout] 05/25/22 05/25/22 05/25/22 08:45 08:50 08:55 Temperature Pulse Rate 65 60 63 Respiratory Rate Blood Pressure O2 Sat by Pulse 96 96 96 Oximetry O2 Sat by Pulse Oximetry [ Posterior Bilateral Throughout] 05/25/22 05/25/22 05/25/22 09:00 09:05 09:10 Temperature Pulse Rate 65 66 80 Respiratory Rate Blood Pressure O2 Sat by Pulse 96 96 99 Oximetry O2 Sat by Pulse Oximetry [ Posterior Bilateral Throughout] 05/25/22 05/25/22 05/25/22 09:15 09:16 09:17 Temperature 98.3 F Pulse Rate 71 72 Respiratory 18 Rate Blood Pressure 141/88 O2 Sat by Pulse 99 98 Oximetry O2 Sat by Pulse Oximetry [ Posterior Bilateral Throughout] 05/25/22 05/25/22 05/25/22 09:20 09:25 09:30 Temperature Pulse Rate 69 71 76 Respiratory Rate Blood Pressure O2 Sat by Pulse 98 98 97 Oximetry O2 Sat by Pulse Oximetry [ Posterior Bilateral Throughout] 05/25/22 05/25/22 05/25/22 09:35 09:40 09:45 Temperature Pulse Rate 72 68 74 Respiratory Rate Blood Pressure O2 Sat by Pulse 97 97 98 Oximetry O2 Sat by Pulse Oximetry [ Posterior Bilateral Throughout] 05/25/22 05/25/22 05/25/22 09:50 09:55 10:00 Temperature Pulse Rate 72 68 71 Respiratory Rate Blood Pressure O2 Sat by Pulse 97 96 96 Oximetry O2 Sat by Pulse Oximetry [ Posterior Bilateral Throughout] 05/25/22 05/25/22 05/25/22 10:05 10:10 10:21 Temperature Pulse Rate 73 71 77 Respiratory Rate Blood Pressure O2 Sat by Pulse 97 94 98 Oximetry O2 Sat by Pulse Oximetry [ Posterior Bilateral Throughout] 05/25/22 05/25/22 05/25/22 10:24 10:26 10:27 Temperature Pulse Rate 67 68 Respiratory Rate Blood Pressure O2 Sat by Pulse 95 94 Oximetry O2 Sat by Pulse 98 Oximetry [ Posterior Bilateral Throughout] 05/25/22 05/25/22 05/25/22 10:31 10:33 10:36 Temperature Pulse Rate 66 69 60 Respiratory Rate Blood Pressure O2 Sat by Pulse 94 94 95 Oximetry O2 Sat by Pulse Oximetry [ Posterior Bilateral Throughout] 05/25/22 05/25/22 05/25/22 10:41 10:46 10:51 Temperature Pulse Rate 67 68 65 Respiratory Rate Blood Pressure O2 Sat by Pulse 95 94 95 Oximetry O2 Sat by Pulse Oximetry [ Posterior Bilateral Throughout] 05/25/22 10:56 Temperature Pulse Rate 61 Respiratory Rate Blood Pressure O2 Sat by Pulse 95 Oximetry O2 Sat by Pulse Oximetry [ Posterior Bilateral Throughout] - Exam Cardiovascular: Regular rate, Normal S1, Normal S2 Lungs: Clear to auscultation, Normal air movement Abdomen: Present: soft Extremities: normal - Labs Labs: Abnormal Labs 05/21/22 05/21/22 05/21/22 19:44 19:44 20:30 WBC MCHC RDW Seg Neutrophils % Seg Neutrophils # Sodium Carbon Dioxide 20 L Calcium Magnesium Total Protein 6.1 L Albumin 3.5 L Urine Creatinine 59.3 H 58.4 H Ur Total Protein 24 Hr 6908.00 H Urine Total Protein 314 H 05/21/22 05/22/22 05/22/22 20:30 00:19 05:35 WBC 14.7 H MCHC 35 H RDW 12.9 L Seg Neutrophils % 80.3 H Seg Neutrophils # 11.8 H Sodium Carbon Dioxide Calcium Magnesium 4.40 H 5.40 H Total Protein Albumin Urine Creatinine Ur Total Protein 24 Hr Urine Total Protein 05/22/22 05/22/22 05/22/22 11:59 17:51 17:57 WBC MCHC RDW Seg Neutrophils % Seg Neutrophils # Sodium 136 L Carbon Dioxide 20 L Calcium 7.5 L D Magnesium 6.00 H 6.40 H Total Protein 4.8 L D Albumin 2.9 L Urine Creatinine Ur Total Protein 24 Hr Urine Total Protein 05/22/22 05/23/22 05/23/22 21:52 00:19 05:42 WBC 13.2 H MCHC RDW 12.9 L Seg Neutrophils % Seg Neutrophils # Sodium Carbon Dioxide 21 L Calcium 7.0 L Magnesium 6.40 H 6.20 H Total Protein 4.6 L Albumin 2.7 L Urine Creatinine Ur Total Protein 24 Hr Urine Total Protein 05/23/22 05/23/22 05/24/22 05:42 18:18 00:11 WBC 11.8 H MCHC RDW 13.0 L Seg Neutrophils % Seg Neutrophils # Sodium Carbon Dioxide Calcium Magnesium 6.60 H 4.60 H Total Protein Albumin Urine Creatinine Ur Total Protein 24 Hr Urine Total Protein 05/24/22 05/24/22 11:13 11:13 WBC MCHC RDW 13.0 L Seg Neutrophils % Seg Neutrophils # Sodium 134 L Carbon Dioxide 21 L Calcium 7.2 L Magnesium Total Protein 4.6 L Albumin 2.8 L Urine Creatinine Ur Total Protein 24 Hr Urine Total Protein Laboratory Results - last 24 hr 05/24/22 05/24/22 05/24/22 11:13 11:13 11:13 WBC 10.5 RBC 3.67 Hgb 11.0 Hct 32.3 MCV 88 MCH 30 MCHC 34 RDW 13.0 L Plt Count 164 Sodium 134 L Potassium 4.5 Chloride 104.7 Carbon Dioxide 21 L Anion Gap 13 BUN 13 Creatinine 0.7 Estimated GFR > 60 BUN/Creatinine Ratio 19 Glucose 72 Calcium 7.2 L Total Bilirubin 0.30 AST 15 ALT 10 Alkaline Phosphatase 71 Total Protein 4.6 L Albumin 2.8 L Albumin/Globulin Ratio 1.6 Blood Type A POSITIVE Antibody Screen Positive Antibody Identification Anti-M
[2022-05-25] MEDS: PRENATAL VIT27-FE FUMARATE-FOLIC ACID VIT TAB PO SCH (11:04)
[2022-05-25] MEDS: BETAMET ACET/BETAMET NA PH 6 MG/ML INJ 5 ML MDV IM SCH (11:09)
--- NOTE | 2022-05-25 12:35 | Progress Note ---
Assessment and Plan ASSESSMENT 1. IUP @ 23 weeks 2. Preeclampsia with severe features 3. Growth Restriction 4. Elevated MSAFP RECOMMMENDATIONS Continue inpatient expectant management Continue Labetalol as prescribed. Titrate as needed. Twice weekly CBC and CMP Growth scans every 2 weeks (next due on or after 06/04/22) Twice weekly dopplers starting at 24 weeks Twice weekly BPP strating at 27 to 28 weeks Delivery at 34 weeks or sooner, if worsening of labs (HELLP Syndrome), persistent Cat II tracing or Cat III tracing; placental abruption, labor Subjective - Subjective Principal diagnosis: IUP @ 23 2/6 wks; IUGR, Pre-eclampsia Interval history: No complaints. Denies headaches, visual changes, chest pain, SOB or RUQ pain. Patient reports: movement normal, no new complaints, no loss of fluid, no vaginal bleeding, no contractions Objective - Vital Signs Vital Signs: Vital Signs - 12hr 05/25/22 05/25/22 05/25/22 00:47 00:57 01:03 Temperature Pulse Rate Respiratory Rate Blood Pressure O2 Sat by Pulse 18 L 94 37 L Oximetry O2 Sat by Pulse Oximetry [ Posterior Bilateral Throughout] 05/25/22 05/25/22 05/25/22 01:08 01:12 01:14 Temperature Pulse Rate 164 H Respiratory Rate Blood Pressure O2 Sat by Pulse 61 L 52 L 0 L Oximetry O2 Sat by Pulse Oximetry [ Posterior Bilateral Throughout] 05/25/22 05/25/22 05/25/22 01:19 01:31 01:40 Temperature Pulse Rate 52 L 149 H Respiratory Rate Blood Pressure O2 Sat by Pulse 74 L 73 L 0 L Oximetry O2 Sat by Pulse Oximetry [ Posterior Bilateral Throughout] 05/25/22 05/25/22 05/25/22 01:51 01:52 01:57 Temperature Pulse Rate 84 72 Respiratory Rate Blood Pressure 140/91 O2 Sat by Pulse 65 L 84 99 Oximetry O2 Sat by Pulse Oximetry [ Posterior Bilateral Throughout] 05/25/22 05/25/22 05/25/22 02:02 02:07 02:12 Temperature Pulse Rate 78 59 L 59 L Respiratory Rate Blood Pressure O2 Sat by Pulse 100 98 98 Oximetry O2 Sat by Pulse Oximetry [ Posterior Bilateral Throughout] 05/25/22 05/25/22 05/25/22 02:17 02:22 02:27 Temperature Pulse Rate 58 L 59 L 61 Respiratory Rate Blood Pressure O2 Sat by Pulse 98 97 97 Oximetry O2 Sat by Pulse Oximetry [ Posterior Bilateral Throughout] 05/25/22 05/25/22 05/25/22 02:32 02:37 02:42 Temperature Pulse Rate 63 64 64 Respiratory Rate Blood Pressure O2 Sat by Pulse 96 96 96 Oximetry O2 Sat by Pulse Oximetry [ Posterior Bilateral Throughout] 05/25/22 05/25/22 05/25/22 02:47 02:52 02:54 Temperature Pulse Rate 65 66 78 Respiratory Rate Blood Pressure O2 Sat by Pulse 96 96 94 Oximetry O2 Sat by Pulse Oximetry [ Posterior Bilateral Throughout] 05/25/22 05/25/22 05/25/22 02:57 07:45 07:50 Temperature Pulse Rate 67 78 61 Respiratory Rate Blood Pressure O2 Sat by Pulse 96 97 99 Oximetry O2 Sat by Pulse Oximetry [ Posterior Bilateral Throughout] 05/25/22 05/25/22 05/25/22 07:55 08:00 08:01 Temperature Pulse Rate 83 64 78 Respiratory Rate Blood Pressure O2 Sat by Pulse 99 97 93 Oximetry O2 Sat by Pulse Oximetry [ Posterior Bilateral Throughout] 05/25/22 05/25/22 05/25/22 08:05 08:10 08:15 Temperature Pulse Rate 63 86 81 Respiratory Rate Blood Pressure O2 Sat by Pulse 99 98 97 Oximetry O2 Sat by Pulse Oximetry [ Posterior Bilateral Throughout] 05/25/22 05/25/22 05/25/22 08:20 08:25 08:30 Temperature Pulse Rate 69 70 61 Respiratory Rate Blood Pressure O2 Sat by Pulse 100 99 99 Oximetry O2 Sat by Pulse Oximetry [ Posterior Bilateral Throughout] 05/25/22 05/25/22 05/25/22 08:35 08:40 08:45 Temperature Pulse Rate 63 68 65 Respiratory Rate Blood Pressure O2 Sat by Pulse 98 96 96 Oximetry O2 Sat by Pulse Oximetry [ Posterior Bilateral Throughout] 05/25/22 05/25/22 05/25/22 08:50 08:55 09:00 Temperature Pulse Rate 60 63 65 Respiratory Rate Blood Pressure O2 Sat by Pulse 96 96 96 Oximetry O2 Sat by Pulse Oximetry [ Posterior Bilateral Throughout] 05/25/22 05/25/22 05/25/22 09:05 09:10 09:15 Temperature Pulse Rate 66 80 71 Respiratory Rate Blood Pressure O2 Sat by Pulse 96 99 99 Oximetry O2 Sat by Pulse Oximetry [ Posterior Bilateral Throughout] 05/25/22 05/25/22 05/25/22 09:16 09:17 09:20 Temperature 98.3 F Pulse Rate 72 69 Respiratory 18 Rate Blood Pressure 141/88 O2 Sat by Pulse 98 98 Oximetry O2 Sat by Pulse Oximetry [ Posterior Bilateral Throughout] 05/25/22 05/25/22 05/25/22 09:25 09:30 09:35 Temperature Pulse Rate 71 76 72 Respiratory Rate Blood Pressure O2 Sat by Pulse 98 97 97 Oximetry O2 Sat by Pulse Oximetry [ Posterior Bilateral Throughout] 05/25/22 05/25/22 05/25/22 09:40 09:45 09:50 Temperature Pulse Rate 68 74 72 Respiratory Rate Blood Pressure O2 Sat by Pulse 97 98 97 Oximetry O2 Sat by Pulse Oximetry [ Posterior Bilateral Throughout] 05/25/22 05/25/22 05/25/22 09:55 10:00 10:05 Temperature Pulse Rate 68 71 73 Respiratory Rate Blood Pressure O2 Sat by Pulse 96 96 97 Oximetry O2 Sat by Pulse Oximetry [ Posterior Bilateral Throughout] 05/25/22 05/25/22 05/25/22 10:10 10:21 10:24 Temperature Pulse Rate 71 77 Respiratory Rate Blood Pressure O2 Sat by Pulse 94 98 Oximetry O2 Sat by Pulse 98 Oximetry [ Posterior Bilateral Throughout] 05/25/22 05/25/22 05/25/22 10:26 10:27 10:31 Temperature Pulse Rate 67 68 66 Respiratory Rate Blood Pressure O2 Sat by Pulse 95 94 94 Oximetry O2 Sat by Pulse Oximetry [ Posterior Bilateral Throughout] 05/25/22 05/25/22 05/25/22 10:33 10:36 10:41 Temperature Pulse Rate 69 60 67 Respiratory Rate Blood Pressure O2 Sat by Pulse 94 95 95 Oximetry O2 Sat by Pulse Oximetry [ Posterior Bilateral Throughout] 05/25/22 05/25/22 05/25/22 10:46 10:51 10:56 Temperature Pulse Rate 68 65 61 Respiratory Rate Blood Pressure O2 Sat by Pulse 94 95 95 Oximetry O2 Sat by Pulse Oximetry [ Posterior Bilateral Throughout] 05/25/22 05/25/22 05/25/22 11:02 11:03 11:04 Temperature Pulse Rate 69 72 Respiratory Rate Blood Pressure 169/90 169/90 O2 Sat by Pulse 99 Oximetry O2 Sat by Pulse Oximetry [ Posterior Bilateral Throughout] 05/25/22 11:07 Temperature Pulse Rate 72 Respiratory Rate Blood Pressure O2 Sat by Pulse 99 Oximetry O2 Sat by Pulse Oximetry [ Posterior Bilateral Throughout] - Exam Abdomen: Present: soft - Labs Labs: Abnormal Labs 05/21/22 05/21/22 05/21/22 19:44 19:44 20:30 WBC MCHC RDW Seg Neutrophils % Seg Neutrophils # Sodium Carbon Dioxide 20 L Calcium Magnesium Total Protein 6.1 L Albumin 3.5 L Urine Creatinine 59.3 H 58.4 H Ur Total Protein 24 Hr 6908.00 H Urine Total Protein 314 H 05/21/22 05/22/22 05/22/22 20:30 00:19 05:35 WBC 14.7 H MCHC 35 H RDW 12.9 L Seg Neutrophils % 80.3 H Seg Neutrophils # 11.8 H Sodium Carbon Dioxide Calcium Magnesium 4.40 H 5.40 H Total Protein Albumin Urine Creatinine Ur Total Protein 24 Hr Urine Total Protein 05/22/22 05/22/22 05/22/22 11:59 17:51 17:57 WBC MCHC RDW Seg Neutrophils % Seg Neutrophils # Sodium 136 L Carbon Dioxide 20 L Calcium 7.5 L D Magnesium 6.00 H 6.40 H Total Protein 4.8 L D Albumin 2.9 L Urine Creatinine Ur Total Protein 24 Hr Urine Total Protein 05/22/22 05/23/22 05/23/22 21:52 00:19 05:42 WBC 13.2 H MCHC RDW 12.9 L Seg Neutrophils % Seg Neutrophils # Sodium Carbon Dioxide 21 L Calcium 7.0 L Magnesium 6.40 H 6.20 H Total Protein 4.6 L Albumin 2.7 L Urine Creatinine Ur Total Protein 24 Hr Urine Total Protein 05/23/22 05/23/22 05/24/22 05:42 18:18 00:11 WBC 11.8 H MCHC RDW 13.0 L Seg Neutrophils % Seg Neutrophils # Sodium Carbon Dioxide Calcium Magnesium 6.60 H 4.60 H Total Protein Albumin Urine Creatinine Ur Total Protein 24 Hr Urine Total Protein 05/24/22 05/24/22 11:13 11:13 WBC MCHC RDW 13.0 L Seg Neutrophils % Seg Neutrophils # Sodium 134 L Carbon Dioxide 21 L Calcium 7.2 L Magnesium Total Protein 4.6 L Albumin 2.8 L Urine Creatinine Ur Total Protein 24 Hr Urine Total Protein Laboratory Results - last 24 hr 05/24/22 05/24/22 05/24/22 11:13 11:13 11:13 WBC 10.5 RBC 3.67 Hgb 11.0 Hct 32.3 MCV 88 MCH 30 MCHC 34 RDW 13.0 L Plt Count 164 Sodium 134 L Potassium 4.5 Chloride 104.7 Carbon Dioxide 21 L Anion Gap 13 BUN 13 Creatinine 0.7 Estimated GFR > 60 BUN/Creatinine Ratio 19 Glucose 72 Calcium 7.2 L Total Bilirubin 0.30 AST 15 ALT 10 Alkaline Phosphatase 71 Total Protein 4.6 L Albumin 2.8 L Albumin/Globulin Ratio 1.6 Blood Type A POSITIVE Antibody Screen Positive Antibody Identification Anti-M
[2022-05-25] MEDS: ALUM-MAG HYDROXIDE-SIMETHICONE 200-200-20MG/5ML ORAL LIQD 30 ML PO PRN ×2 (13:47→22:41)
[2022-05-25] MEDS: ZOLPIDEM 5 MG TAB PO PRN (22:08)
[2022-05-26] MEDS ORDERED: hydrALAZINE 20 MG/1 ML INJ IV PRN (03:51)
[2022-05-26] MEDS ORDERED: hydrALAZINE 20 MG/1 ML INJ IV ONE (03:56)
[2022-05-26] MEDS: PRENATAL VIT27-FE FUMARATE-FOLIC ACID VIT TAB PO SCH (09:38)
[2022-05-26 10:47] LABS: Hematocrit 34.5 % (30.3-42.9); Hemoglobin 11.5 gm/dl (10.1-14.3); Mean Corpuscular HGB Conc 33 % (30-34); Mean Corpuscular Volume 88 fl (79-97); Platelet Count 173 K/mm3 (140-440); Red Cell Distribution Width 13.1 % (13.2-15.2)
--- NOTE | 2022-05-26 11:01 | Progress Note ---
Assessment and Plan Pt resting, no complaints today except facial swelling. Pt reports active FM, denies ctx, SROM or vag bleeding. ASSESSMENT: 1. IUP @ 23+3 weeks 2. Preeclampsia with severe features 3. Growth Restriction 4. Elevated MSAFP 5. BMZ second dose 05/26/2022 6. Blood pressures increased over last 24hrs, labetalol titrated to 300mg PO TID AMFM RECOMMMENDATIONS: * Continue inpatient expectant management * Continue Labetalol as prescribed. Titrate as needed. * Twice weekly CBC and CMP (drawn today 05/26/2022) * Growth scans every 2 weeks (next due on or after 06/04/22) * Twice weekly dopplers starting at 24 weeks * Twice weekly BPP strating at 27 to 28 weeks * Delivery at 34 weeks or sooner, if worsening of labs (HELLP Syndrome), persistent Cat II tracing or Cat III tracing; placental abruption, labor - Patient Problems (1) 23 weeks gestation of Current Visit: Yes Status: Acute (2) growth restriction Current Visit: Yes Status: Acute (3) Pre-eclampsia in second trimester Current Visit: Yes Status: Acute (4) Abnormal AFP screen Current Visit: Yes Status: Chronic Subjective - Subjective Date of service: 05/26/22 Principal diagnosis: IUP @ 23 3/6 wks; IUGR, Pre-eclampsia Patient reports: movement normal, no new complaints, no loss of fluid, no vaginal bleeding, no contractions Objective - Vital Signs Vital Signs: Vital Signs - 12hr 05/25/22 05/25/22 05/25/22 23:24 23:28 23:29 Temperature Pulse Rate 65 88 82 Respiratory Rate Blood Pressure O2 Sat by Pulse 99 94 95 Oximetry O2 Sat by Pulse Oximetry [ Posterior Bilateral Throughout] 05/25/22 05/25/22 05/25/22 23:30 23:34 23:39 Temperature Pulse Rate 71 68 71 Respiratory Rate Blood Pressure 136/72 O2 Sat by Pulse 94 94 Oximetry O2 Sat by Pulse Oximetry [ Posterior Bilateral Throughout] 05/25/22 05/25/22 05/25/22 23:44 23:49 23:50 Temperature Pulse Rate 70 69 72 Respiratory Rate Blood Pressure O2 Sat by Pulse 94 95 94 Oximetry O2 Sat by Pulse Oximetry [ Posterior Bilateral Throughout] 05/25/22 05/26/22 05/26/22 23:57 00:02 00:07 Temperature Pulse Rate 90 66 66 Respiratory Rate Blood Pressure O2 Sat by Pulse 99 96 95 Oximetry O2 Sat by Pulse Oximetry [ Posterior Bilateral Throughout] 05/26/22 05/26/22 05/26/22 00:12 00:13 00:17 Temperature Pulse Rate 68 70 76 Respiratory Rate Blood Pressure O2 Sat by Pulse 95 94 93 Oximetry O2 Sat by Pulse Oximetry [ Posterior Bilateral Throughout] 05/26/22 05/26/22 05/26/22 00:22 00:26 00:27 Temperature Pulse Rate 72 72 79 Respiratory Rate Blood Pressure O2 Sat by Pulse 93 94 94 Oximetry O2 Sat by Pulse Oximetry [ Posterior Bilateral Throughout] 05/26/22 05/26/22 05/26/22 00:31 00:32 00:37 Temperature Pulse Rate 64 66 66 Respiratory Rate Blood Pressure 127/73 O2 Sat by Pulse 95 95 Oximetry O2 Sat by Pulse Oximetry [ Posterior Bilateral Throughout] 05/26/22 05/26/22 05/26/22 00:39 00:42 00:45 Temperature Pulse Rate 67 70 62 Respiratory Rate Blood Pressure O2 Sat by Pulse 94 95 94 Oximetry O2 Sat by Pulse Oximetry [ Posterior Bilateral Throughout] 05/26/22 05/26/22 05/26/22 00:47 00:52 00:57 Temperature Pulse Rate 80 68 68 Respiratory Rate Blood Pressure O2 Sat by Pulse 94 94 94 Oximetry O2 Sat by Pulse Oximetry [ Posterior Bilateral Throughout] 05/26/22 05/26/22 05/26/22 01:02 01:04 01:07 Temperature Pulse Rate 63 66 60 Respiratory Rate Blood Pressure O2 Sat by Pulse 96 94 93 Oximetry O2 Sat by Pulse Oximetry [ Posterior Bilateral Throughout] 05/26/22 05/26/22 05/26/22 01:12 01:17 01:22 Temperature Pulse Rate 58 L 60 63 Respiratory Rate Blood Pressure O2 Sat by Pulse 92 92 92 Oximetry O2 Sat by Pulse Oximetry [ Posterior Bilateral Throughout] 05/26/22 05/26/22 05/26/22 01:27 01:45 01:50 Temperature 98 F Pulse Rate 65 78 76 Respiratory 16 Rate Blood Pressure O2 Sat by Pulse 93 97 97 Oximetry O2 Sat by Pulse Oximetry [ Posterior Bilateral Throughout] 05/26/22 05/26/22 05/26/22 01:55 02:00 02:05 Temperature Pulse Rate 59 L 58 L 62 Respiratory Rate Blood Pressure O2 Sat by Pulse 96 96 96 Oximetry O2 Sat by Pulse Oximetry [ Posterior Bilateral Throughout] 05/26/22 05/26/22 05/26/22 02:10 02:17 02:22 Temperature Pulse Rate 67 65 63 Respiratory Rate Blood Pressure 150/76 O2 Sat by Pulse 96 98 95 Oximetry O2 Sat by Pulse Oximetry [ Posterior Bilateral Throughout] 05/26/22 05/26/22 05/26/22 02:23 02:27 02:32 Temperature Pulse Rate 65 66 69 Respiratory Rate Blood Pressure O2 Sat by Pulse 94 94 93 Oximetry O2 Sat by Pulse Oximetry [ Posterior Bilateral Throughout] 05/26/22 05/26/22 05/26/22 02:37 02:42 02:47 Temperature Pulse Rate 67 68 68 Respiratory Rate Blood Pressure O2 Sat by Pulse 93 93 93 Oximetry O2 Sat by Pulse Oximetry [ Posterior Bilateral Throughout] 05/26/22 05/26/22 05/26/22 02:52 02:57 03:02 Temperature Pulse Rate 69 70 69 Respiratory Rate Blood Pressure O2 Sat by Pulse 93 93 93 Oximetry O2 Sat by Pulse Oximetry [ Posterior Bilateral Throughout] 05/26/22 05/26/22 05/26/22 03:07 03:12 03:20 Temperature Pulse Rate 69 66 59 L Respiratory Rate Blood Pressure O2 Sat by Pulse 93 94 98 Oximetry O2 Sat by Pulse Oximetry [ Posterior Bilateral Throughout] 05/26/22 05/26/22 05/26/22 03:23 03:39 03:40 Temperature Pulse Rate 57 L 59 L 73 Respiratory Rate Blood Pressure 188/87 188/92 O2 Sat by Pulse 98 Oximetry O2 Sat by Pulse Oximetry [ Posterior Bilateral Throughout] 05/26/22 05/26/22 05/26/22 03:45 03:50 03:52 Temperature Pulse Rate 58 L 60 68 Respiratory Rate Blood Pressure 188/92 O2 Sat by Pulse 94 96 Oximetry O2 Sat by Pulse Oximetry [ Posterior Bilateral Throughout] 05/26/22 05/26/22 05/26/22 03:55 04:00 04:05 Temperature Pulse Rate 88 71 72 Respiratory Rate Blood Pressure O2 Sat by Pulse 96 97 97 Oximetry O2 Sat by Pulse Oximetry [ Posterior Bilateral Throughout] 05/26/22 05/26/22 05/26/22 04:07 04:10 04:15 Temperature Pulse Rate 71 75 77 Respiratory Rate Blood Pressure 142/80 O2 Sat by Pulse 97 96 Oximetry O2 Sat by Pulse Oximetry [ Posterior Bilateral Throughout] 05/26/22 05/26/22 05/26/22 04:20 04:25 04:30 Temperature Pulse Rate 80 81 77 Respiratory Rate Blood Pressure O2 Sat by Pulse 95 97 95 Oximetry O2 Sat by Pulse Oximetry [ Posterior Bilateral Throughout] 05/26/22 05/26/22 05/26/22 04:35 04:37 04:40 Temperature Pulse Rate 81 81 83 Respiratory Rate Blood Pressure O2 Sat by Pulse 95 94 96 Oximetry O2 Sat by Pulse Oximetry [ Posterior Bilateral Throughout] 05/26/22 05/26/22 05/26/22 04:45 04:50 04:55 Temperature Pulse Rate 83 88 86 Respiratory Rate Blood Pressure O2 Sat by Pulse 95 94 94 Oximetry O2 Sat by Pulse Oximetry [ Posterior Bilateral Throughout] 05/26/22 05/26/22 05/26/22 05:00 05:05 05:08 Temperature Pulse Rate 84 80 78 Respiratory Rate Blood Pressure 123/57 O2 Sat by Pulse 94 94 Oximetry O2 Sat by Pulse Oximetry [ Posterior Bilateral Throughout] 05/26/22 05/26/22 05/26/22 05:10 05:15 05:17 Temperature Pulse Rate 93 H 83 78 Respiratory Rate Blood Pressure O2 Sat by Pulse 96 95 94 Oximetry O2 Sat by Pulse Oximetry [ Posterior Bilateral Throughout] 05/26/22 05/26/22 05/26/22 05:20 05:25 05:30 Temperature Pulse Rate 86 86 79 Respiratory Rate Blood Pressure O2 Sat by Pulse 95 96 96 Oximetry O2 Sat by Pulse Oximetry [ Posterior Bilateral Throughout] 05/26/22 05/26/22 05/26/22 05:35 05:40 05:45 Temperature Pulse Rate 81 69 76 Respiratory Rate Blood Pressure O2 Sat by Pulse 95 96 96 Oximetry O2 Sat by Pulse Oximetry [ Posterior Bilateral Throughout] 05/26/22 05/26/22 05/26/22 05:50 05:55 06:00 Temperature Pulse Rate 78 81 80 Respiratory Rate Blood Pressure O2 Sat by Pulse 95 95 95 Oximetry O2 Sat by Pulse Oximetry [ Posterior Bilateral Throughout] 05/26/22 05/26/22 05/26/22 06:05 06:07 06:08 Temperature 98.5 F Pulse Rate 83 69 Respiratory 16 Rate Blood Pressure 139/78 O2 Sat by Pulse 95 95 Oximetry O2 Sat by Pulse Oximetry [ Posterior Bilateral Throughout] 05/26/22 05/26/22 05/26/22 06:10 06:15 06:20 Temperature Pulse Rate 81 76 77 Respiratory Rate Blood Pressure O2 Sat by Pulse 97 96 97 Oximetry O2 Sat by Pulse Oximetry [ Posterior Bilateral Throughout] 05/26/22 05/26/22 05/26/22 06:25 06:30 06:35 Temperature Pulse Rate 76 82 83 Respiratory Rate Blood Pressure O2 Sat by Pulse 96 95 95 Oximetry O2 Sat by Pulse Oximetry [ Posterior Bilateral Throughout] 05/26/22 05/26/22 05/26/22 06:40 06:42 06:45 Temperature Pulse Rate 90 73 83 Respiratory Rate Blood Pressure O2 Sat by Pulse 96 94 94 Oximetry O2 Sat by Pulse Oximetry [ Posterior Bilateral Throughout] 05/26/22 05/26/22 05/26/22 06:50 06:55 07:00 Temperature Pulse Rate 81 84 70 Respiratory Rate Blood Pressure O2 Sat by Pulse 94 94 96 Oximetry O2 Sat by Pulse Oximetry [ Posterior Bilateral Throughout] 05/26/22 05/26/22 05/26/22 07:04 07:05 07:10 Temperature Pulse Rate 72 70 72 Respiratory Rate Blood Pressure O2 Sat by Pulse 94 94 95 Oximetry O2 Sat by Pulse Oximetry [ Posterior Bilateral Throughout] 05/26/22 05/26/22 05/26/22 07:11 07:15 07:17 Temperature Pulse Rate 75 72 74 Respiratory Rate Blood Pressure O2 Sat by Pulse 94 95 94 Oximetry O2 Sat by Pulse Oximetry [ Posterior Bilateral Throughout] 05/26/22 05/26/22 05/26/22 07:20 07:23 07:25 Temperature Pulse Rate 71 75 75 Respiratory Rate Blood Pressure O2 Sat by Pulse 95 94 94 Oximetry O2 Sat by Pulse Oximetry [ Posterior Bilateral Throughout] 05/26/22 05/26/22 05/26/22 07:28 07:30 07:35 Temperature Pulse Rate 74 78 82 Respiratory Rate Blood Pressure O2 Sat by Pulse 94 94 94 Oximetry O2 Sat by Pulse Oximetry [ Posterior Bilateral Throughout] 05/26/22 05/26/22 05/26/22 07:40 07:45 07:50 Temperature Pulse Rate 78 79 78 Respiratory Rate Blood Pressure O2 Sat by Pulse 95 95 95 Oximetry O2 Sat by Pulse Oximetry [ Posterior Bilateral Throughout] 05/26/22 05/26/22 05/26/22 07:55 07:56 08:00 Temperature Pulse Rate 77 89 71 Respiratory Rate Blood Pressure O2 Sat by Pulse 95 94 95 Oximetry O2 Sat by Pulse Oximetry [ Posterior Bilateral Throughout] 05/26/22 05/26/22 05/26/22 08:04 08:05 08:10 Temperature Pulse Rate 79 76 90 Respiratory Rate Blood Pressure 156/90 O2 Sat by Pulse 94 95 98 Oximetry O2 Sat by Pulse 98 Oximetry [ Posterior Bilateral Throughout] 05/26/22 05/26/22 05/26/22 08:12 09:12 09:19 Temperature 97.9 F Pulse Rate 67 73 Respiratory 16 Rate Blood Pressure 177/85 156/97 O2 Sat by Pulse Oximetry O2 Sat by Pulse Oximetry [ Posterior Bilateral Throughout] 05/26/22 05/26/22 05/26/22 09:37 09:38 10:34 Temperature Pulse Rate 77 80 72 Respiratory Rate Blood Pressure 168/96 143/87 O2 Sat by Pulse 99 Oximetry O2 Sat by Pulse Oximetry [ Posterior Bilateral Throughout] - Exam Cardiovascular: Regular rate Lungs: Normal air movement Abdomen: Present: normal appearance, soft. Absent: distention, tenderness, guarding Uterus: Present: normal, fundal height below umbilicus Uterine Contraction Monitor Mode: Palpation Uterine Tone Measurement Phase: Resting Extremities: edema Deep Tendon Reflex Grade: Normal +2 - Labs Labs: Abnormal Labs 05/21/22 05/21/22 05/21/22 19:44 19:44 20:30 WBC MCHC RDW Seg Neutrophils % Seg Neutrophils # Sodium Carbon Dioxide 20 L Calcium Magnesium Total Protein 6.1 L Albumin 3.5 L Urine Creatinine 59.3 H 58.4 H Ur Total Protein 24 Hr 6908.00 H Urine Total Protein 314 H 05/21/22 05/22/22 05/22/22 20:30 00:19 05:35 WBC 14.7 H MCHC 35 H RDW 12.9 L Seg Neutrophils % 80.3 H Seg Neutrophils # 11.8 H Sodium Carbon Dioxide Calcium Magnesium 4.40 H 5.40 H Total Protein Albumin Urine Creatinine Ur Total Protein 24 Hr Urine Total Protein 05/22/22 05/22/22 05/22/22 11:59 17:51 17:57 WBC MCHC RDW Seg Neutrophils % Seg Neutrophils # Sodium 136 L Carbon Dioxide 20 L Calcium 7.5 L D Magnesium 6.00 H 6.40 H Total Protein 4.8 L D Albumin 2.9 L Urine Creatinine Ur Total Protein 24 Hr Urine Total Protein 05/22/22 05/23/22 05/23/22 21:52 00:19 05:42 WBC 13.2 H MCHC RDW 12.9 L Seg Neutrophils % Seg Neutrophils # Sodium Carbon Dioxide 21 L Calcium 7.0 L Magnesium 6.40 H 6.20 H Total Protein 4.6 L Albumin 2.7 L Urine Creatinine Ur Total Protein 24 Hr Urine Total Protein 05/23/22 05/23/22 05/24/22 05:42 18:18 00:11 WBC 11.8 H MCHC RDW 13.0 L Seg Neutrophils % Seg Neutrophils # Sodium Carbon Dioxide Calcium Magnesium 6.60 H 4.60 H Total Protein Albumin Urine Creatinine Ur Total Protein 24 Hr Urine Total Protein 05/24/22 05/24/22 05/26/22 11:13 11:13 10:30 WBC 17.8 H MCHC RDW 13.0 L 13.1 L Seg Neutrophils % Seg Neutrophils # Sodium 134 L Carbon Dioxide 21 L Calcium 7.2 L Magnesium Total Protein 4.6 L Albumin 2.8 L Urine Creatinine Ur Total Protein 24 Hr Urine Total Protein Laboratory Results - last 24 hr 05/26/22 10:30 WBC 17.8 H RBC 3.90 Hgb 11.5 Hct 34.5 MCV 88 MCH 30 MCHC 33 RDW 13.1 L Plt Count 173
[2022-05-26 11:15] LABS: Alanine Aminotransferase 12 units/L (7-56); Albumin 2.9 g/dL (3.9-5); BUN/Creatinine Ratio 31; Blood Urea Nitrogen 28 mg/dL (7-17); Calcium 9.3 mg/dL (8.4-10.2); Hemolysis Index 10; Uric Acid 8.7 mg/dL (3.5-7.6)
[2022-05-26] MEDS: BETAMET ACET/BETAMET NA PH 6 MG/ML INJ 5 ML MDV IM SCH (11:38)
[2022-05-26] MEDS ORDERED: FAMOTIDINE 10 MG TAB PO ONE (11:56)
[2022-05-26] MEDS: ZOLPIDEM 5 MG TAB PO PRN (22:09)
--- NOTE | 2022-05-27 08:31 | Progress Note ---
Assessment and Plan A: 21 y.o. with an IUP @ 23 weeks, Preeclampsia with severe features, IUGR, Elevated MSAFP - Patient Problems (1) Anti-M isoimmunization affecting , antepartum Current Visit: Yes Status: Acute Qualifiers: Fetus number: single or unspecified fetus Qualified Code(s): O36.1990 - Maternal care for other isoimmunization, unspecified trimester, not applicable or unspecified Plan to address problem: s/p Type and Screen. (2) Pre-eclampsia in second trimester Current Visit: Yes Status: Acute Plan to address problem: Continue to monitor blood pressures. Strict I&O's Continue with Labetalol 300mg BID. S/p NICU consult. [facility] recommendations: Continue inpatient expectant management Continue Labetalol as prescribed. Titrate as needed. Twice weekly CBC and CMP Growth scans every 2 weeks (next due on or after 06/04/22) Twice weekly dopplers starting at 24 weeks Twice weekly BPP strating at 27 to 28 weeks Delivery at 34 weeks or sooner, if worsening of labs (HELLP Syndrome), persistent Cat II tracing or Cat III tracing; placental abruption, labor (3) Abnormal AFP screen Current Visit: Yes Status: Chronic (4) 23 weeks gestation of Current Visit: Yes Status: Acute Plan to address problem: doppler q shift. (5) growth restriction Current Visit: Yes Status: Acute Subjective - Subjective Date of service: 05/27/22 Principal diagnosis: IUP @ 23.4 wks; IUGR, Pre-eclampsia Interval history: Pt denies EPSTEIN, blurred vision, spots before her eyes, chest pain, upper abdominal pain, shortness of breath, vaginal bleeding, LOF, and ctxs. She states that she feels movement. Discussed plan for the day: continue to monitor blood pressure, labs, and if her blood pressures are stable. Patient reports: movement normal, no new complaints, no loss of fluid, no vaginal bleeding, no contractions Objective - Vital Signs Vital Signs: Vital Signs - 12hr 05/26/22 05/26/22 05/26/22 22:06 22:07 22:08 Temperature Pulse Rate 70 67 71 Respiratory Rate Blood Pressure 162/83 162/83 O2 Sat by Pulse 92 Oximetry O2 Sat by Pulse Oximetry [ Posterior Bilateral Throughout] 05/26/22 05/26/22 05/27/22 22:09 22:11 01:52 Temperature 98 F Pulse Rate 71 81 67 Respiratory 18 Rate Blood Pressure 162/83 147/88 O2 Sat by Pulse 98 Oximetry O2 Sat by Pulse Oximetry [ Posterior Bilateral Throughout] 05/27/22 05/27/22 05/27/22 01:53 06:24 06:34 Temperature 98.2 F 98.2 F Pulse Rate 69 69 Respiratory 18 18 Rate Blood Pressure 140/73 140/73 O2 Sat by Pulse 98 100 Oximetry O2 Sat by Pulse Oximetry [ Posterior Bilateral Throughout] 05/27/22 05/27/22 05/27/22 06:35 08:01 08:03 Temperature Pulse Rate 69 66 65 Respiratory Rate Blood Pressure 140/73 144/77 O2 Sat by Pulse 88 Oximetry O2 Sat by Pulse Oximetry [ Posterior Bilateral Throughout] 05/27/22 05/27/22 05/27/22 08:14 08:19 08:22 Temperature 97.9 F Pulse Rate 71 72 Respiratory 20 Rate Blood Pressure O2 Sat by Pulse 98 99 Oximetry O2 Sat by Pulse 98 Oximetry [ Posterior Bilateral Throughout] - Exam Cardiovascular: Normal S1, Normal S2 Lungs: Clear to auscultation Abdomen: Present: normal appearance, soft Vulva: both: normal FHR: other (FHR +) Extremities: edema (Periorbital edema is not present @ this assessment. +2 pitting edema to bilateral hands and feet. ) - Labs Labs: Abnormal Labs 05/21/22 05/21/22 05/21/22 19:44 19:44 20:30 WBC MCHC RDW Seg Neutrophils % Seg Neutrophils # Sodium Potassium Chloride Carbon Dioxide 20 L BUN Glucose Uric Acid Calcium Magnesium Lactate Dehydrogenase Total Protein 6.1 L Albumin 3.5 L Urine Creatinine 59.3 H 58.4 H Ur Total Protein 24 Hr 6908.00 H Urine Total Protein 314 H 05/21/22 05/22/22 05/22/22 20:30 00:19 05:35 WBC 14.7 H MCHC 35 H RDW 12.9 L Seg Neutrophils % 80.3 H Seg Neutrophils # 11.8 H Sodium Potassium Chloride Carbon Dioxide BUN Glucose Uric Acid Calcium Magnesium 4.40 H 5.40 H Lactate Dehydrogenase Total Protein Albumin Urine Creatinine Ur Total Protein 24 Hr Urine Total Protein 05/22/22 05/22/22 05/22/22 11:59 17:51 17:57 WBC MCHC RDW Seg Neutrophils % Seg Neutrophils # Sodium 136 L Potassium Chloride Carbon Dioxide 20 L BUN Glucose Uric Acid Calcium 7.5 L D Magnesium 6.00 H 6.40 H Lactate Dehydrogenase Total Protein 4.8 L D Albumin 2.9 L Urine Creatinine Ur Total Protein 24 Hr Urine Total Protein 05/22/22 05/23/22 05/23/22 21:52 00:19 05:42 WBC 13.2 H MCHC RDW 12.9 L Seg Neutrophils % Seg Neutrophils # Sodium Potassium Chloride Carbon Dioxide 21 L BUN Glucose Uric Acid Calcium 7.0 L Magnesium 6.40 H 6.20 H Lactate Dehydrogenase Total Protein 4.6 L Albumin 2.7 L Urine Creatinine Ur Total Protein 24 Hr Urine Total Protein 05/23/22 05/23/22 05/24/22 05:42 18:18 00:11 WBC 11.8 H MCHC RDW 13.0 L Seg Neutrophils % Seg Neutrophils # Sodium Potassium Chloride Carbon Dioxide BUN Glucose Uric Acid Calcium Magnesium 6.60 H 4.60 H Lactate Dehydrogenase Total Protein Albumin Urine Creatinine Ur Total Protein 24 Hr Urine Total Protein 05/24/22 05/24/22 05/26/22 11:13 11:13 10:30 WBC 17.8 H MCHC RDW 13.0 L 13.1 L Seg Neutrophils % Seg Neutrophils # Sodium 134 L Potassium Chloride Carbon Dioxide 21 L BUN Glucose Uric Acid Calcium 7.2 L Magnesium Lactate Dehydrogenase Total Protein 4.6 L Albumin 2.8 L Urine Creatinine Ur Total Protein 24 Hr Urine Total Protein 05/26/22 10:30 WBC MCHC RDW Seg Neutrophils % Seg Neutrophils # Sodium Potassium 5.7 H D Chloride 107.6 H Carbon Dioxide 18 L BUN 28 H Glucose 107 H Uric Acid 8.7 H Calcium Magnesium Lactate Dehydrogenase 222 H Total Protein 4.7 L Albumin 2.9 L Urine Creatinine Ur Total Protein 24 Hr Urine Total Protein Laboratory Results - last 24 hr 05/26/22 05/26/22 10:30 10:30 WBC 17.8 H RBC 3.90 Hgb 11.5 Hct 34.5 MCV 88 MCH 30 MCHC 33 RDW 13.1 L Plt Count 173 Sodium 139 Potassium 5.7 H D Chloride 107.6 H Carbon Dioxide 18 L Anion Gap 19 BUN 28 H Creatinine 0.9 Estimated GFR > 60 BUN/Creatinine Ratio 31 Glucose 107 H Uric Acid 8.7 H Calcium 9.3 D Total Bilirubin 0.20 AST 16 ALT 12 Alkaline Phosphatase 76 Lactate Dehydrogenase 222 H Total Protein 4.7 L Albumin 2.9 L Albumin/Globulin Ratio 1.6
[2022-05-27] MEDS: PRENATAL VIT27-FE FUMARATE-FOLIC ACID VIT TAB PO SCH (10:21)
--- NOTE | 2022-05-27 12:52 | Progress Note ---
Assessment and Plan - Patient Problems (1) Elevated blood pressure affecting in second trimester, antepartum Current Visit: Yes Status: Acute Plan to address problem: Patient currently stable, labetalol was increased to 300mg BID Okay to continue titrating up as needed She just received IV hydralazine for a severe range blood pressure Would recommend continuing to monitor blood pressures closely for now Recommend delivery for worsening labs and signs of HELLP Worsening blood pressures not able to be controlled by antihypertensive meds Worsening dopplers (reverse end diastolic flow) If delivery is imminent would consider restarting MgSO4 for seizure prophylaxis and neuroprotection Continue labs (CBC. CMP) every 2-3 days until delivery Recommend delivery at 34 weeks or sooner if indicated For IUGR -Biweekly dopplers -FHT for 30 minutes twice daily -At 24-26 can consider BPP weekly Hyperkalemia with K+ 5.7 -Would recommend EKG as patient is asymptomatic and repeating CMP tomorrow -If still elevated, would recommend treating the hyperkalemia -Unknown etiology at this time (2) Abnormal AFP screen Current Visit: Yes Status: Chronic Subjective - Subjective Date of service: 05/27/22 Principal diagnosis: IUP @ 23.4 wks; IUGR, Pre-eclampsia Patient reports: movement normal, no new complaints, no loss of fluid, no vaginal bleeding, no contractions Objective - Vital Signs Vital Signs: Vital Signs - 12hr 05/27/22 05/27/22 05/27/22 01:52 01:53 06:24 Temperature 98.2 F 98.2 F Pulse Rate 67 69 Respiratory 18 18 Rate Blood Pressure 147/88 140/73 O2 Sat by Pulse 98 100 Oximetry O2 Sat by Pulse Oximetry [ Posterior Bilateral Throughout] 05/27/22 05/27/22 05/27/22 06:34 06:35 08:01 Temperature Pulse Rate 69 69 66 Respiratory Rate Blood Pressure 140/73 140/73 O2 Sat by Pulse 88 Oximetry O2 Sat by Pulse Oximetry [ Posterior Bilateral Throughout] 05/27/22 05/27/22 05/27/22 08:03 08:14 08:19 Temperature Pulse Rate 65 71 72 Respiratory Rate Blood Pressure 144/77 O2 Sat by Pulse 98 99 Oximetry O2 Sat by Pulse Oximetry [ Posterior Bilateral Throughout] 05/27/22 05/27/22 05/27/22 08:22 12:01 12:02 Temperature 97.9 F Pulse Rate 76 75 Respiratory 20 Rate Blood Pressure 160/91 O2 Sat by Pulse 98 Oximetry O2 Sat by Pulse 98 Oximetry [ Posterior Bilateral Throughout] 05/27/22 05/27/22 12:03 12:04 Temperature 97.8 F Pulse Rate 61 Respiratory 20 Rate Blood Pressure 157/99 O2 Sat by Pulse Oximetry O2 Sat by Pulse Oximetry [ Posterior Bilateral Throughout] - Exam Breasts: deferred Cardiovascular: Regular rate Lungs: Normal air movement - Labs Labs: Abnormal Labs 05/21/22 05/21/22 05/21/22 19:44 19:44 20:30 WBC MCHC RDW Seg Neutrophils % Seg Neutrophils # Sodium Potassium Chloride Carbon Dioxide 20 L BUN Glucose Uric Acid Calcium Magnesium Lactate Dehydrogenase Total Protein 6.1 L Albumin 3.5 L Urine Creatinine 59.3 H 58.4 H Ur Total Protein 24 Hr 6908.00 H Urine Total Protein 314 H 05/21/22 05/22/22 05/22/22 20:30 00:19 05:35 WBC 14.7 H MCHC 35 H RDW 12.9 L Seg Neutrophils % 80.3 H Seg Neutrophils # 11.8 H Sodium Potassium Chloride Carbon Dioxide BUN Glucose Uric Acid Calcium Magnesium 4.40 H 5.40 H Lactate Dehydrogenase Total Protein Albumin Urine Creatinine Ur Total Protein 24 Hr Urine Total Protein 05/22/22 05/22/22 05/22/22 11:59 17:51 17:57 WBC MCHC RDW Seg Neutrophils % Seg Neutrophils # Sodium 136 L Potassium Chloride Carbon Dioxide 20 L BUN Glucose Uric Acid Calcium 7.5 L D Magnesium 6.00 H 6.40 H Lactate Dehydrogenase Total Protein 4.8 L D Albumin 2.9 L Urine Creatinine Ur Total Protein 24 Hr Urine Total Protein 05/22/22 05/23/22 05/23/22 21:52 00:19 05:42 WBC 13.2 H MCHC RDW 12.9 L Seg Neutrophils % Seg Neutrophils # Sodium Potassium Chloride Carbon Dioxide 21 L BUN Glucose Uric Acid Calcium 7.0 L Magnesium 6.40 H 6.20 H Lactate Dehydrogenase Total Protein 4.6 L Albumin 2.7 L Urine Creatinine Ur Total Protein 24 Hr Urine Total Protein 05/23/22 05/23/22 05/24/22 05:42 18:18 00:11 WBC 11.8 H MCHC RDW 13.0 L Seg Neutrophils % Seg Neutrophils # Sodium Potassium Chloride Carbon Dioxide BUN Glucose Uric Acid Calcium Magnesium 6.60 H 4.60 H Lactate Dehydrogenase Total Protein Albumin Urine Creatinine Ur Total Protein 24 Hr Urine Total Protein 05/24/22 05/24/22 05/26/22 11:13 11:13 10:30 WBC 17.8 H MCHC RDW 13.0 L 13.1 L Seg Neutrophils % Seg Neutrophils # Sodium 134 L Potassium Chloride Carbon Dioxide 21 L BUN Glucose Uric Acid Calcium 7.2 L Magnesium Lactate Dehydrogenase Total Protein 4.6 L Albumin 2.8 L Urine Creatinine Ur Total Protein 24 Hr Urine Total Protein 05/26/22 10:30 WBC MCHC RDW Seg Neutrophils % Seg Neutrophils # Sodium Potassium 5.7 H D Chloride 107.6 H Carbon Dioxide 18 L BUN 28 H Glucose 107 H Uric Acid 8.7 H Calcium Magnesium Lactate Dehydrogenase 222 H Total Protein 4.7 L Albumin 2.9 L Urine Creatinine Ur Total Protein 24 Hr Urine Total Protein
[2022-05-27 20:50] LABS: Calcium 8.2 mg/dL (8.4-10.2)
[2022-05-27 21:36] LABS: Alanine Aminotransferase 14 units/L (7-56); Albumin 2.8 g/dL (3.9-5)
[2022-05-27 21:44] LABS: Bilirubin,Direct < 0.2 mg/dL (0-0.2)
[2022-05-27] MEDS: ZOLPIDEM 5 MG TAB PO PRN (22:52)
--- NOTE | 2022-05-28 08:00 | Progress Note ---
Assessment and Plan pt walking around room, making bed. no complaints today (except being hungry). Labs ordered but have not been drawn at this time. ASSESSMENT: 1. IUP @ 23+5 weeks 2. Preeclampsia with severe features 3. Growth Restriction 4. Elevated MSAFP 5. BMZ second dose 05/26/2022 6. Blood pressures increased over last 24hrs, labetalol titrated to 300mg PO TID AMFM RECOMMMENDATIONS: * Continue inpatient expectant management * Continue Labetalol as prescribed. Titrate as needed. * Twice weekly CBC and CMP (ordered today 05/28/2022, next draw 05/30/2022) * Growth scans every 2 weeks (next due on or after 06/04/22) * Twice weekly dopplers starting at 24 weeks (ordered 05/30/2022 @ 24+0) * Twice weekly BPP strating at 27 to 28 weeks * Delivery at 34 weeks or sooner, if worsening of labs (HELLP Syndrome), persistent Cat II tracing or Cat III tracing; placental abruption, labor * if delivery is imminent would consider restarting MgSO4 for seizure prophylaxis and neuroprotection - Patient Problems (1) 23 weeks gestation of Current Visit: Yes Status: Acute (2) growth restriction Current Visit: Yes Status: Acute (3) Pre-eclampsia in second trimester Current Visit: Yes Status: Acute (4) Abnormal AFP screen Current Visit: Yes Status: Chronic Subjective - Subjective Date of service: 05/28/22 Principal diagnosis: IUP @ 23.5 wks; IUGR, Pre-eclampsia Patient reports: movement normal, no new complaints, no loss of fluid, no vaginal bleeding, no contractions Objective - Vital Signs Vital Signs: Vital Signs - 12hr 05/27/22 05/27/22 05/27/22 21:51 21:56 22:01 Pulse Rate 65 67 63 Blood Pressure O2 Sat by Pulse 98 98 97 Oximetry 05/27/22 05/27/22 05/27/22 22:06 22:11 22:16 Pulse Rate 60 63 69 Blood Pressure O2 Sat by Pulse 98 97 97 Oximetry 05/27/22 05/27/22 05/27/22 22:21 22:23 22:26 Pulse Rate 72 97 H 69 Blood Pressure O2 Sat by Pulse 97 97 Oximetry 05/27/22 05/27/22 05/27/22 22:31 22:48 22:49 Pulse Rate 67 71 61 Blood Pressure 170/87 O2 Sat by Pulse 98 98 Oximetry 05/27/22 05/27/22 05/27/22 22:51 22:54 22:55 Pulse Rate 65 71 64 Blood Pressure 170/87 159/86 159/86 O2 Sat by Pulse 98 Oximetry - Exam Breasts: normal Cardiovascular: Regular rate Lungs: Normal air movement Abdomen: Present: normal appearance, soft. Absent: distention, tenderness, guarding Uterus: Present: normal FHR: auscultation normal Uterine Contraction Monitor Mode: Palpation Uterine Tone Measurement Phase: Resting Extremities: normal - Labs Labs: Abnormal Labs 05/21/22 05/21/22 05/21/22 19:44 19:44 20:30 WBC MCHC RDW Seg Neutrophils % Seg Neutrophils # Sodium Potassium Chloride Carbon Dioxide 20 L BUN Glucose Uric Acid Calcium Magnesium Lactate Dehydrogenase Total Protein 6.1 L Albumin 3.5 L Urine Creatinine 59.3 H 58.4 H Ur Total Protein 24 Hr 6908.00 H Urine Total Protein 314 H 05/21/22 05/22/22 05/22/22 20:30 00:19 05:35 WBC 14.7 H MCHC 35 H RDW 12.9 L Seg Neutrophils % 80.3 H Seg Neutrophils # 11.8 H Sodium Potassium Chloride Carbon Dioxide BUN Glucose Uric Acid Calcium Magnesium 4.40 H 5.40 H Lactate Dehydrogenase Total Protein Albumin Urine Creatinine Ur Total Protein 24 Hr Urine Total Protein 05/22/22 05/22/22 05/22/22 11:59 17:51 17:57 WBC MCHC RDW Seg Neutrophils % Seg Neutrophils # Sodium 136 L Potassium Chloride Carbon Dioxide 20 L BUN Glucose Uric Acid Calcium 7.5 L D Magnesium 6.00 H 6.40 H Lactate Dehydrogenase Total Protein 4.8 L D Albumin 2.9 L Urine Creatinine Ur Total Protein 24 Hr Urine Total Protein 05/22/22 05/23/22 05/23/22 21:52 00:19 05:42 WBC 13.2 H MCHC RDW 12.9 L Seg Neutrophils % Seg Neutrophils # Sodium Potassium Chloride Carbon Dioxide 21 L BUN Glucose Uric Acid Calcium 7.0 L Magnesium 6.40 H 6.20 H Lactate Dehydrogenase Total Protein 4.6 L Albumin 2.7 L Urine Creatinine Ur Total Protein 24 Hr Urine Total Protein 05/23/22 05/23/2205/24/22 05:42 18:18 00:11 WBC 11.8 H MCHC RDW 13.0 L Seg Neutrophils % Seg Neutrophils # Sodium Potassium Chloride Carbon Dioxide BUN Glucose Uric Acid Calcium Magnesium 6.60 H 4.60 H Lactate Dehydrogenase Total Protein Albumin Urine Creatinine Ur Total Protein 24 Hr Urine Total Protein 05/24/22 05/24/22 05/26/22 11:13 11:13 10:30 WBC 17.8 H MCHC RDW 13.0 L 13.1 L Seg Neutrophils % Seg Neutrophils # Sodium 134 L Potassium Chloride Carbon Dioxide 21 L BUN Glucose Uric Acid Calcium 7.2 L Magnesium Lactate Dehydrogenase Total Protein 4.6 L Albumin 2.8 L Urine Creatinine Ur Total Protein 24 Hr Urine Total Protein 05/26/22 05/27/22 05/27/22 10:30 19:22 21:21 WBC MCHC RDW Seg Neutrophils % Seg Neutrophils # Sodium Potassium 5.7 H D 5.1 H Chloride 107.6 H 108.0 H Carbon Dioxide 18 L 18 L BUN 28 H 34 H Glucose 107 H 111 H Uric Acid 8.7 H Calcium 8.2 L Magnesium Lactate Dehydrogenase 222 H Total Protein 4.7 L 4.8 L Albumin 2.9 L 2.8 L Urine Creatinine Ur Total Protein 24 Hr Urine Total Protein Laboratory Results - last 24 hr 05/27/22 05/27/22 19:22 21:21 Sodium 137 Potassium 5.1 H Chloride 108.0 H Carbon Dioxide 18 L Anion Gap 16 BUN 34 H Creatinine 1.2 Estimated GFR 57 BUN/Creatinine Ratio 28 Glucose 111 H Calcium 8.2 L Total Bilirubin 0.20 Direct Bilirubin < 0.2 Indirect Bilirubin 0.0 AST 17 ALT 14 Alkaline Phosphatase 72 Total Protein 4.8 L Albumin 2.8 L Albumin/Globulin Ratio 1.4
[2022-05-28] MEDS: PRENATAL VIT27-FE FUMARATE-FOLIC ACID VIT TAB PO SCH (09:45)
[2022-05-28] MEDS: hydrALAZINE 20 MG/1 ML INJ IV PRN (10:01)
[2022-05-28 12:18] LABS: Alanine Aminotransferase 15 units/L (7-56); Albumin 2.8 g/dL (3.9-5); BUN/Creatinine Ratio 34; Blood Urea Nitrogen 31 mg/dL (7-17); Calcium 8.1 mg/dL (8.4-10.2); Hemolysis Index 2
[2022-05-28 12:56] LABS: Hematocrit 35.8 % (30.3-42.9); Hemoglobin 11.5 gm/dl (10.1-14.3); Mean Corpuscular HGB Conc 32 % (30-34); Mean Corpuscular Volume 90 fl (79-97); Platelet Count 191 K/mm3 (140-440); Red Blood Count 3.97 M/mm3 (3.65-5.03); Red Cell Distribution Width 13.1 % (13.2-15.2)
--- NOTE | 2022-05-28 18:23 | Event Note ---
Date: 05/28/22 Patient sitting in the bed with complaint of headache blurred vision or abdominal pain. Discussed diagnosis of preeclampsia. Questions answered. Patient did have some mild improved blood pressures after receiving medication this morning. Discussed with the nurse the importance of patient receiving scheduled antihypertensive. Precautions given to the patient. Discussed indications for delivery and indication for section discussed indications and maternal indications. Patient's labs reviewed stable did have slight increase decrease in her creatinine. We will come continue close observation. Plan as noted in above note.
[2022-05-28] MEDS: ZOLPIDEM 5 MG TAB PO PRN (23:09)
--- NOTE | 2022-05-28 23:45 | Ultrasound Report ---
LIMITED OBSTETRICAL ULTRASOUND INDICATION: FHR COMPARISON: 05/24/2022 FINDINGS: Single intrauterine is again noted in a breech position. Cardiac activity was doc umented at 140 bpm period placenta is posterior and free of the internal cervical os. IMPRESSION: Cardiac activity documented as above in a very limited study Signer Name: Sekou Trevino MD Signed: 05/28/2022 11:41 PM Workstation Name: [id number]
[2022-05-29] MEDS: ALUM-MAG HYDROXIDE-SIMETHICONE 200-200-20MG/5ML ORAL LIQD 30 ML PO PRN (06:13)
--- NOTE | 2022-05-29 08:08 | Progress Note ---
Assessment and Plan A: 21- y.o. @ 23.6 wks, Pre-eclampsia with severe features, IUGR, - Patient Problems (1) Anti-M isoimmunization affecting , antepartum Current Visit: Yes Status: Acute Qualifiers: Fetus number: single or unspecified fetus Qualified Code(s): O36.1990 - Maternal care for other isoimmunization, unspecified trimester, not applicable or unspecified Plan to address problem: s/p type and screen. (2) Pre-eclampsia in second trimester Current Visit: Yes Status: Acute Plan to address problem: Continue with Labetalol 300mg TID. Continue to monitor blood pressures. Continue to monitor for worsening s/sx of Pre-eclampsia. RECOMMMENDATIONS PER [facility]: Continue inpatient expectant management Continue Labetalol as prescribed. Titrate as needed. Twice weekly CBC and CMP: drawn this AM. Awaiting results. Growth scans every 2 weeks: last completed on 05/24 EFW 435g. Next ordered for 06/04. Twice weekly dopplers starting at 24 weeks Twice weekly BPP strating at 27 to 28 weeks Delivery at 34 weeks or sooner, if worsening of labs (HELLP Syndrome), persistent Cat II tracing or Cat III tracing; placental abruption, labor (3) Abnormal AFP screen Current Visit: Yes Status: Chronic (4) 23 weeks gestation of Current Visit: Yes Status: Acute (5) growth restriction Current Visit: Yes Status: Acute Plan to address problem: Twice weekly dopplers starting at 24 weeks Twice weekly BPP strating at 27 to 28 weeks (6) Hyperkalemia Current Visit: Yes Status: Acute Plan to address problem: Continue to monitor. Has decreased from 5.7 to 5.1. Subjective - Subjective Date of service: 05/29/22 Principal diagnosis: IUP @ 23.6 wks; IUGR, Pre-eclampsia Interval history: Pt denies blurred vision, spots before her eyes, chest pain, upper abdominal pain, vaginal bleeding, LOF, and ctxs. She states that she feels movement. Discussed plan for the day: continue to monitor blood pressures, labs, and ultrasounds. She has some intermittent shortness of breath when she is laying down but is otherwise fine when she is sitting up and moving around. She also has intermittent EPSTEIN's. Patient reports: movement normal, no new complaints, no loss of fluid, no vaginal bleeding, no contractions Objective - Vital Signs Vital Signs: Vital Signs - 12hr 05/28/22 05/28/22 05/28/22 20:54 20:59 21:04 Temperature Pulse Rate 84 90 86 Blood Pressure O2 Sat by Pulse 98 98 98 Oximetry O2 Sat by Pulse Oximetry [ Posterior Bilateral Throughout] 05/28/22 05/28/22 05/28/22 21:09 21:14 21:16 Temperature Pulse Rate 90 78 81 Blood Pressure 162/95 O2 Sat by Pulse 98 98 Oximetry O2 Sat by Pulse Oximetry [ Posterior Bilateral Throughout] 05/28/22 05/28/22 05/28/22 21:17 21:19 21:23 Temperature Pulse Rate 82 76 Blood Pressure 162/95 161/97 O2 Sat by Pulse 98 Oximetry O2 Sat by Pulse Oximetry [ Posterior Bilateral Throughout] 05/28/22 05/28/22 05/28/22 21:24 21:25 21:29 Temperature 98.0 F Pulse Rate 73 76 Blood Pressure O2 Sat by Pulse 98 98 Oximetry O2 Sat by Pulse 98 Oximetry [ Posterior Bilateral Throughout] 05/28/22 05/28/22 05/28/22 21:34 21:35 21:39 Temperature Pulse Rate 74 69 34 L Blood Pressure 149/86 O2 Sat by Pulse 98 76 L Oximetry O2 Sat by Pulse Oximetry [ Posterior Bilateral Throughout] 05/28/22 05/28/22 05/28/22 21:48 22:11 22:20 Temperature Pulse Rate 93 H 46 L Blood Pressure O2 Sat by Pulse 79 L 77 L 83 L Oximetry O2 Sat by Pulse Oximetry [ Posterior Bilateral Throughout] 05/28/22 05/28/22 05/28/22 22:30 23:09 23:12 Temperature Pulse Rate 52 L 80 72 Blood Pressure 141/86 O2 Sat by Pulse 83 L 78 L 98 Oximetry O2 Sat by Pulse Oximetry [ Posterior Bilateral Throughout] 05/28/22 05/28/22 05/28/22 23:15 23:17 23:20 Temperature Pulse Rate 36 L 167 H Blood Pressure O2 Sat by Pulse 84 84 84 Oximetry O2 Sat by Pulse Oximetry [ Posterior Bilateral Throughout] 05/28/22 05/28/22 05/28/22 23:22 23:26 23:27 Temperature Pulse Rate 176 H 62 Blood Pressure O2 Sat by Pulse 85 84 85 Oximetry O2 Sat by Pulse Oximetry [ Posterior Bilateral Throughout] 05/28/22 05/28/22 05/28/22 23:32 23:34 23:37 Temperature Pulse Rate 103 H Blood Pressure O2 Sat by Pulse 89 81 L 81 L Oximetry O2 Sat by Pulse Oximetry [ Posterior Bilateral Throughout] 05/28/22 05/28/22 05/28/22 23:43 23:46 23:48 Temperature Pulse Rate 59 L Blood Pressure O2 Sat by Pulse 80 L 77 L 76 L Oximetry O2 Sat by Pulse Oximetry [ Posterior Bilateral Throughout] 05/28/22 05/29/22 05/29/22 23:57 00:15 00:41 Temperature Pulse Rate 80 60 Blood Pressure O2 Sat by Pulse 85 81 L 81 L Oximetry O2 Sat by Pulse Oximetry [ Posterior Bilateral Throughout] 05/29/22 05/29/22 05/29/22 01:50 03:58 04:02 Temperature 98.6 F Pulse Rate 147 H 81 Blood Pressure 147/85 O2 Sat by Pulse 83 L Oximetry O2 Sat by Pulse Oximetry [ Posterior Bilateral Throughout] 05/29/22 05/29/22 05/29/22 06:10 06:11 06:14 Temperature Pulse Rate 83 78 Blood Pressure 148/86 148/56 O2 Sat by Pulse 97 Oximetry O2 Sat by Pulse Oximetry [ Posterior Bilateral Throughout] 05/29/22 05/29/22 06:15 06:16 Temperature 98.3 F Pulse Rate 99 H Blood Pressure O2 Sat by Pulse 98 Oximetry O2 Sat by Pulse Oximetry [ Posterior Bilateral Throughout] - Exam Cardiovascular: Regular rate Lungs: Normal air movement Abdomen: Present: normal appearance, soft Uterus: Present: normal FHR: other (FHR doppler) Extremities: edema (+2 edema to lower bilateral extremities, +1 edema to hands. ) Deep Tendon Reflex Grade: Normal +2 - Labs Labs: Abnormal Labs 05/21/22 05/21/22 05/21/22 19:44 19:44 20:30 WBC MCHC RDW Seg Neutrophils % Seg Neutrophils # Sodium Potassium Chloride Carbon Dioxide 20 L BUN Glucose Uric Acid Calcium Magnesium Lactate Dehydrogenase Total Protein 6.1 L Albumin 3.5 L Urine Creatinine 59.3 H 58.4 H Ur Total Protein 24 Hr 6908.00 H Urine Total Protein 314 H 05/21/22 05/22/22 05/22/22 20:30 00:19 05:35 WBC 14.7 H MCHC 35 H RDW 12.9 L Seg Neutrophils % 80.3 H Seg Neutrophils # 11.8 H Sodium Potassium Chloride Carbon Dioxide BUN Glucose Uric Acid Calcium Magnesium 4.40 H 5.40 H Lactate Dehydrogenase Total Protein Albumin Urine Creatinine Ur Total Protein 24 Hr Urine Total Protein 05/22/22 05/22/22 05/22/22 11:59 17:51 17:57 WBC MCHC RDW Seg Neutrophils % Seg Neutrophils # Sodium 136 L Potassium Chloride Carbon Dioxide 20 L BUN Glucose Uric Acid Calcium 7.5 L D Magnesium 6.00 H 6.40 H Lactate Dehydrogenase Total Protein 4.8 L D Albumin 2.9 L Urine Creatinine Ur Total Protein 24 Hr Urine Total Protein 05/22/22 05/23/22 05/23/22 21:52 00:19 05:42 WBC 13.2 H MCHC RDW 12.9 L Seg Neutrophils % Seg Neutrophils # Sodium Potassium Chloride Carbon Dioxide 21 L BUN Glucose Uric Acid Calcium 7.0 L Magnesium 6.40 H 6.20 H Lactate Dehydrogenase Total Protein 4.6 L Albumin 2.7 L Urine Creatinine Ur Total Protein 24 Hr Urine Total Protein 05/23/22 05/23/22 05/24/22 05:42 18:18 00:11 WBC 11.8 H MCHC RDW 13.0 L Seg Neutrophils % Seg Neutrophils # Sodium Potassium Chloride Carbon Dioxide BUN Glucose Uric Acid Calcium Magnesium 6.60 H 4.60 H Lactate Dehydrogenase Total Protein Albumin Urine Creatinine Ur Total Protein 24 Hr Urine Total Protein 05/24/22 05/24/22 05/26/22 11:13 11:13 10:30 WBC 17.8 H MCHC RDW 13.0 L 13.1 L Seg Neutrophils % Seg Neutrophils # Sodium 134 L Potassium Chloride Carbon Dioxide 21 L BUN Glucose Uric Acid Calcium 7.2 L Magnesium Lactate Dehydrogenase Total Protein 4.6 L Albumin 2.8 L Urine Creatinine Ur Total Protein 24 Hr Urine Total Protein 05/26/22 05/27/22 05/27/22 10:30 19:22 21:21 WBC MCHC RDW Seg Neutrophils % Seg Neutrophils # Sodium Potassium 5.7 H D 5.1 H Chloride 107.6 H 108.0 H Carbon Dioxide 18 L 18 L BUN 28 H 34 H Glucose 107 H 111 H Uric Acid 8.7 H Calcium 8.2 L Magnesium Lactate Dehydrogenase 222 H Total Protein 4.7 L 4.8 L Albumin 2.9 L 2.8 L Urine Creatinine Ur Total Protein 24 Hr Urine Total Protein 05/28/22 05/28/22 11:15 11:15 WBC 15.3 H MCHC RDW 13.1 L Seg Neutrophils % Seg Neutrophils # Sodium Potassium 5.1 H Chloride 108.1 H Carbon Dioxide 20 L BUN 31 H Glucose Uric Acid Calcium 8.1 L Magnesium Lactate Dehydrogenase Total Protein 4.7 L Albumin 2.8 L Urine Creatinine Ur Total Protein 24 Hr Urine Total Protein Laboratory Results - last 24 hr 05/28/22 05/28/22 05/28/22 11:15 11:15 11:15 WBC 15.3 H RBC 3.97 Hgb 11.5 Hct 35.8 MCV 90 MCH 29 MCHC 32 RDW 13.1 L Plt Count 191 Sodium 137 Potassium 5.1 H Chloride 108.1 H Carbon Dioxide 20 L Anion Gap 14 BUN 31 H Creatinine 0.9 Estimated GFR > 60 BUN/Creatinine Ratio 34 Glucose 92 Calcium 8.1 L Total Bilirubin 0.20 AST 18 ALT 15 Alkaline Phosphatase 74 Total Protein 4.7 L Albumin 2.8 L Albumin/Globulin Ratio 1.5 Blood Type A POSITIVE Antibody Screen Positive Antibody Identification Anti-M
[2022-05-29 08:25] LABS: Hematocrit 31.8 % (30.3-42.9); Hemoglobin 10.4 gm/dl (10.1-14.3); Mean Corpuscular HGB Conc 33 % (30-34); Mean Corpuscular Volume 90 fl (79-97); Platelet Count 178 K/mm3 (140-440); Red Blood Count 3.55 M/mm3 (3.65-5.03); Red Cell Distribution Width 13.1 % (13.2-15.2)
[2022-05-29 08:45] LABS: Alanine Aminotransferase 15 units/L (7-56); Albumin 2.5 g/dL (3.9-5); BUN/Creatinine Ratio 35; Blood Urea Nitrogen 35 mg/dL (7-17); Calcium 8.1 mg/dL (8.4-10.2); Hemolysis Index 2
--- NOTE | 2022-05-29 10:50 | Event Note ---
Date: 05/29/22 Was called by nurse taking care of patient that she was not able to find a FHR this AM via Doppler. An ultrasound was ordered. Ultrasound confirmed no FHR, IUFD. Went and spoke with patient to inform her of the diagnosis. Her and her mother are grieving appropriately. They asked regarding mode of delivery. I informed them that she can have a vaginal delivery at this time. They would like time to grieve and then address the next steps and plan. Nurse and Charge nurse aware. Will come back to speak with patient and her mother this early evening. All questions and concerns addressed at this visit.
--- NOTE | 2022-05-29 11:03 | Ultrasound Report ---
ULTRASOUND OBSTETRIC LIMITED INDICATION / CLINICAL INFORMATION: heart rate. Clinical Gestational Age (GA) in weeks, days: 23 weeks 6 days TECHNIQUE: Transabdominal. COMPARISON: 05/28/2022 FINDINGS: Single intrauterine in breech presentation. No heart tones detected. IMPRESSION: Findings consistent with demise. Signer Name: Chaz Daniel MD Signed: 05/29/2022 10:59 AM Workstation Name: [email or web address]
[2022-05-29] MEDS: PRENATAL VIT27-FE FUMARATE-FOLIC ACID VIT TAB PO SCH (12:24)
[2022-05-29] MEDS: hydrALAZINE 20 MG/1 ML INJ IV PRN ×3 (18:57→22:21)
[2022-05-29] MEDS ORDERED: miSOPROStol 200 MCG TAB PO SCH (19:00)
[2022-05-29] MEDS ORDERED: MAGNESIUM SULFATE 40GM/1000ML 40 GM/1,000 ML BAG IV SCH (20:00)
[2022-05-29] MEDS: miSOPROStol 200 MCG TAB VG SCH (20:27)
--- NOTE | 2022-05-29 20:32 | Event Note ---
Date: 05/29/22 Patient and mother grieving appropriately. Discussed plan for the night: Pain and sleep medication when needed, Cytotec to be placed vaginally, magnesium infusion, Scott Catheter placement to monitor output, and monitoring blood pressures closely. Pt agrees and voiced understanding. Cervical exam: closed/thick/mid-position. Cervidil placed without difficulty.
[2022-05-29] MEDS ORDERED: LACTATED RINGERS 1,000 ML ONE (20:45)
[2022-05-29] MEDS: MAGNESIUM SULFATE 40GM/1000ML 40 GM/1,000 ML BAG IV SCH (21:10)
[2022-05-29] MEDS ORDERED: LIDOCAINE JELLY (2%) 5 ML TOPICAL TP ONE (21:15)
[2022-05-29] MEDS: ZOLPIDEM 5 MG TAB PO PRN (23:29)
[2022-05-30] MEDS ORDERED: fentaNYL 100 MCG/2 ML INJ IV ONE (02:53)
[2022-05-30] MEDS ORDERED: fentaNYL 100 MCG/2 ML INJ IV PRN (02:53)
[2022-05-30] MEDS ORDERED: BUTORPHANOL 2 MG/1 ML INJ IV PRN (02:53)
[2022-05-30] MEDS ORDERED: CARBOPROST TROMETHAMINE 250 MCG/1 ML INJ IM PRN (02:53)
[2022-05-30] MEDS ORDERED: OXYTOCIN 10 UNIT/1 ML INJ IM PRN (02:53)
[2022-05-30] MEDS ORDERED: TERBUTALINE 1 MG/1 ML INJ SUB-Q PRN (02:53)
[2022-05-30] MEDS ORDERED: miSOPROStol 200 MCG TAB PR PRN (02:53)
[2022-05-30] MEDS ORDERED: LOPERAMIDE 2 MG CAP PO PRN (02:53)
[2022-05-30] MEDS ORDERED: ePHEDrine SULFATE 50 MG/1 ML INJ IV PRN (02:53)
[2022-05-30] MEDS ORDERED: miSOPROStol 200 MCG TAB PO SCH (03:00)
[2022-05-30] MEDS ORDERED: OXYTOCIN DRIP 30 UNITS/500 ML BAG IV SCH ×2 (03:00→11:00)
[2022-05-30] MEDS: miSOPROStol 200 MCG TAB VG SCH (03:14)
[2022-05-30 04:44] LABS: Hematocrit 34.9 % (30.3-42.9); Hemoglobin 11.6 gm/dl (10.1-14.3); Mean Corpuscular HGB Conc 33 % (30-34); Mean Corpuscular Volume 89 fl (79-97); Platelet Count 203 K/mm3 (140-440); Red Blood Count 3.92 M/mm3 (3.65-5.03); Red Cell Distribution Width 12.9 % (13.2-15.2)
[2022-05-30 05:01] LABS: Alanine Aminotransferase 13 units/L (7-56); Albumin 2.6 g/dL (3.9-5); BUN/Creatinine Ratio 31; Blood Urea Nitrogen 28 mg/dL (7-17); Calcium 8.1 mg/dL (8.4-10.2); Hemolysis Index 10
--- NOTE | 2022-05-30 05:44 | Procedure Note ---
OB Delivery Note - Delivery Date of Delivery: 05/30/22 Jira Developer: MELISSA MONTEIRO Estimated blood loss: <100cc - Vaginal Delivery presentation: breech Intrapartum events: other(please specify) (IUFD) Delivery induction: misoprostol Delivery monitor: none Route of delivery: Delivery placenta: spontaneous Delivery cord: 3 umbilical vessels Episiotomy: none Delivery laceration: none Anesthesia: intravenous Delivery comments: Was called to the room by patient and her mother because something was hanging out of her vagina. Upon entering room, fetus and amniotic sac delivering. Delivery of sac, fetus (male, breech), and placenta without difficulty. Placenta appears intact, complete, 3 vessels noted. Will send to pathology. No lacerations noted. Minimal vaginal bleeding noted. Apgars 0,0. weight 14 ozs, 410gms. Fetus assessed, low set ears noted. No other abnormalities noted. EBL 50ml. Fetus cleaned and handed to mother. Patient and family grieving appropriately. All sponges and instruments counted with RN X2 and correct X2. Magnesium to continue for 24 hours after delivery d/t Pre-eclampsia with severe features. Scott Catheter remains in place for strict I&O's. - Infant A at 1 minute: 0 at 5 minutes: 0 Infant Gender: Male (14 ozs, 410 gms)
[2022-05-30] MEDS ORDERED: LACTATED RINGERS 1,000 ML ONE ×3 (06:20→20:36)
--- NOTE | 2022-05-30 08:48 | Progress Note ---
Assessment and Plan 1. s/p vaginal 23wk stillborn * pathway * mental health consult * [facility] 2. Preeclampsia with severe features * labetalol titrated to 300mg PO TID * Mag sulfate 2gm/hr x 24hrs * mag level q6 * strict I&O 3. Hyperkalemia * Kayexalate 15mg x 1 * recheck K+ level after BM - Patient Problems (1) Pre-eclampsia in second trimester Current Visit: Yes Status: Acute (2) IUFD at 20 weeks or more of gestation Current Visit: Yes Status: Acute (3) Hyperkalemia Current Visit: Yes Status: Acute Subjective - Subjective Date of service: 05/30/22 Principal diagnosis: 23wk IUFD Patient reports: pain well controlled [place]: Objective - Vital Signs Latest vital signs: Vital Signs Temp Pulse Resp BP BP Pulse Ox Pulse Ox 05/30/22 08:36 95 H 90 05/30/22 08:31 95 H 92 05/30/22 08:25 93 H 143/78 90 05/30/22 08:20 95 H 91 05/30/22 08:16 96 H 143/75 05/30/22 08:15 99 H 93 05/30/22 08:11 94 H 94 05/30/22 08:10 98 H 93 05/30/22 08:05 104 H 93 05/30/22 08:02 96 H 94 05/30/22 08:00 98 H 92 05/30/22 07:56 105 H 93 05/30/22 07:55 105 H 95 05/30/22 07:50 95 H 93 05/30/22 07:45 96 H 94 05/30/22 07:40 92 H 157/86 96 05/30/22 07:35 100 H 95 05/30/22 07:34 97 H 94 05/30/22 07:30 98 H 94 05/30/22 07:29 101 H 155/89 05/30/22 07:28 93 H 155/89 94 05/30/22 07:25 92 H 94 05/30/22 07:20 94 H 94 05/30/22 07:17 95 H 94 05/30/22 07:15 93 H 96 05/30/22 07:10 105 H 158/87 96 05/30/22 07:05 94 H 96 05/30/22 07:00 88 97 05/30/22 06:55 93 H 179/88 95 05/30/22 06:50 91 H 97 05/30/22 06:45 90 97 05/30/22 06:40 97 H 181/109 95 05/30/22 06:35 89 95 05/30/22 06:30 91 H 96 05/30/22 06:25 84 175/95 96 05/30/22 06:20 86 96 05/30/22 06:15 86 96 05/30/22 06:10 99 H 167/92 96 05/30/22 06:05 92 H 95 05/30/22 06:03 98.1 F 95 H 18 95 05/30/22 06:00 90 96 05/30/22 05:55 91 H 152/84 95 05/30/22 05:50 91 H 95 05/30/22 05:45 93 H 95 05/30/22 05:40 87 154/87 95 05/30/22 05:37 93 H 148/78 05/30/22 05:35 103 H 95 05/30/22 03:39 86 126/70 05/30/22 03:24 85 129/73 05/30/22 03:23 83 136/77 05/30/22 01:56 97 H 93 05/30/22 01:54 98 H 93 05/30/22 01:49 102 H 95 05/30/22 01:44 99 H 93 05/30/22 01:39 98 H 144/81 95 05/30/22 01:36 99 H 93 05/30/22 01:34 101 H 92 05/30/22 01:29 96 H 93 05/30/22 01:24 98 H 139/78 94 05/30/22 01:19 100 H 135/76 94 05/30/22 01:18 112 H 94 05/30/22 01:14 102 H 91 05/30/22 01:09 104 H 91 05/30/22 01:07 112 H 94 05/30/22 01:04 111 H 91 05/30/22 00:59 104 H 90 05/30/22 00:54 104 H 90 05/30/22 00:49 106 H 90 05/30/22 00:44 105 H 90 05/30/22 00:39 102 H 92 05/30/22 00:34 107 H 90 05/30/22 00:29 102 H 91 05/30/22 00:24 107 H 92 05/30/22 00:19 101 H 93 05/30/22 00:14 100 H 94 05/30/22 00:09 101 H 146/86 94 05/30/22 00:07 100 H 146/89 05/30/22 00:06 99 H 94 05/30/22 00:04 107 H 95 05/30/22 00:00 104 H 94 05/29/22 23:59 101 H 95 05/29/22 23:54 99 H 95 05/29/22 23:51 100 H 94 05/29/22 23:49 97 H 95 05/29/22 23:44 98 H 95 05/29/22 23:40 97 H 153/96 05/29/22 23:39 96 H 95 05/29/22 23:34 95 H 95 05/29/22 23:29 98 H 95 05/29/22 23:25 96 H 151/85 05/29/22 23:24 96 H 95 05/29/22 23:23 101 H 94 05/29/22 23:19 98 H 95 05/29/22 23:14 103 H 95 05/29/22 23:09 99 H 152/83 96 05/29/22 23:04 93 H 95 05/29/22 22:59 97 H 95 05/29/22 22:54 97 H 156/94 96 05/29/22 22:49 95 H 95 05/29/22 22:44 100 H 95 05/29/22 22:39 92 H 166/91 94 05/29/22 22:34 95 H 95 05/29/22 22:32 89 94 05/29/22 22:29 90 95 05/29/22 22:25 94 H 159/93 05/29/22 22:24 91 H 96 05/29/22 22:18 86 166/106 05/29/22 22:15 90 165/105 05/29/22 21:49 90 97 05/29/22 21:44 83 97 05/29/22 21:39 85 97 05/29/22 21:34 81 98 05/29/22 21:30 81 171/97 05/29/22 21:29 82 98 05/29/22 21:24 77 98 05/29/22 21:19 82 99 05/29/22 21:14 83 97 05/29/22 21:09 75 98 05/29/22 21:04 78 97 05/29/22 21:00 75 169/96 05/29/22 20:59 78 98 05/29/22 20:54 80 99 05/29/22 20:49 77 98 05/29/22 20:44 78 98 05/29/22 20:42 78 165/96 05/29/22 20:39 74 98 05/29/22 20:30 98.1 F 73 16 171/98 100 94 05/29/22 18:57 74 182/105 05/29/22 18:45 74 182/105 05/29/22 14:17 68 168/95 05/29/22 14:16 68 168/95 05/29/22 14:15 68 168/95 05/29/22 09:40 94 05/29/22 09:38 98.2 F 84 20 135/74 135/74 95 05/29/22 09:37 28 L 94 Intake and Output 05/29/22 05/30/22 05/30/22 23:59 07:59 15:59 Other: Estimated Blood Loss 50 - Exam Breasts: Present: normal Cardiovascular: Present: Regular rate Lungs: Present: Clear to auscultation, Normal air movement Abdomen: Present: normal appearance, soft Extremities: Present: edema (3+) - Labs Labs: Abnormal lab results 05/29/22 05/30/22 05/30/22 Range/Units 07:48 04:18 04:18 WBC 21.5 H (4.5-11.0) K/mm3 RDW 12.9 L (13.2-15.2) % Sodium 134 L (137-145) mmol/L Potassium 5.1 H 5.3 H (3.6-5.0) mmol/L Chloride 109.5 H (98-107) mmol/L Carbon Dioxide 19 L (22-30) mmol/L BUN 35 H 28 H (7-17) mg/dL Calcium 8.1 L 8.1 L (8.4-10.2) mg/dL Magnesium (1.7-2.3) mg/dL Total Protein 4.1 L 4.4 L (6.3-8.2) g/dL Albumin 2.5 L 2.6 L (3.9-5) g/dL 05/30/22 Range/Units 04:18 WBC (4.5-11.0) K/mm3 RDW (13.2-15.2) % Sodium (137-145) mmol/L Potassium (3.6-5.0) mmol/L Chloride (98-107) mmol/L Carbon Dioxide (22-30) mmol/L BUN (7-17) mg/dL Calcium (8.4-10.2) mg/dL Magnesium 5.40 H (1.7-2.3) mg/dL Total Protein (6.3-8.2) g/dL Albumin (3.9-5) g/dL
[2022-05-30] MEDS ORDERED: hydrOXYzine HCL 100 MG/2 ML INJ IM ONE (08:49)
[2022-05-30] MEDS ORDERED: BENZOCAINE/MENTHOL LOZENGE MM PRN (09:00)
[2022-05-30] MEDS ORDERED: SODIUM POLYSTYRENE 15 GM/60 ML ORAL LIQD PO SCH (09:00)
[2022-05-30] MEDS ORDERED: ACETAMINOPHEN 500 MG TAB PO PRN (11:00)
[2022-05-30] MEDS ORDERED: miSOPROStol 100 MCG TAB PR PRN (11:00)
[2022-05-30] MEDS ORDERED: PROMETHAZINE 25 MG RECT SUPP PR PRN (11:00)
[2022-05-30] MEDS ORDERED: diphenhydrAMINE 25 MG CAP PO PRN (11:00)
[2022-05-30] MEDS ORDERED: ONDANSETRON 4 MG/2 ML INJ IV PRN (11:00)
[2022-05-30] MEDS ORDERED: BENZOCAINE/MENTHOL 20/0.5% TOP SPRAY 56 GM TP PRN (11:00)
[2022-05-30] MEDS ORDERED: PROMETHAZINE 25 MG TAB PO PRN (11:00)
[2022-05-30] MEDS ORDERED: oxyCODONE /ACETAMINOPHEN 5-325MG TAB PO PRN (11:00)
[2022-05-30] MEDS ORDERED: WITCH HAZEL/ GLYCERIN PAD TP PRN (11:00)
--- NOTE | 2022-05-30 13:28 | Consultation ---
History of Present Illness - Reason for Consult Consult date: 05/30/22 Reason for consult: demise - History of Present Psychiatric Illness The patient was seen today. Her child's father is at bedside. I ask him to step out while I speak with the patient. The patient is calm, and cooperative. She says she lost her baby. The patient says this is her first . She says she's doing okay with the lost because her and the baby's father "had already come to terms with it." She says she has a great support system in the child's father and in her parents. The patient says she has a history of depression, but hasn't seen a psychiatrist since she's been an adolescent. She also denies being on any meds. She says later she might do therapy. The patient says "but right now I'm okay with everything." She denies SI/HI or any hallucinations. PAST PSYCHIATRIC HISTORY: Diagnoses: Depression Suicide attempts or Self-harm behavior: Denies Prior psychiatric hospitalizations: Denies Substance Abuse history: Denies Previous psychiatric medications tried: Denies Outpatient treatment: Denies PAST MEDICAL HISTORY: None reported Family Psychiatric History: None reported or documented SOCIAL HISTORY Marital Status: Single Living Arrangements: with boyfriend Employment Status: Unemployed Access to guns/weapons: Denies Education: High school History of Abuse:Denies Legal History: Denies REVIEW OF SYSTEMS Constitutional: Negative for weight loss ENT: Negative for stridor Respiratory: Negative for cough or hemoptysis All other systems reviewed and are negative MENTAL STATUS EXAMINATION General Appearance and Behavior: Age appropriate, wearing appropriate clothes, cooperative, polite with questioning, good eye contact Cooperation: cooperative Psychomotor Behavior: Psychomotor normal Mood: okay Affect and affective range: congruent with stated affect Thought Process: goal directed Thought Content: None Speech: Normal volume, Regular rate and rhythm Suicidal Ideation: Denies Homicidal Ideation: Denies Hallucination: Denies Delusions: None elicited Impulse Control: Normal Insight and Judgment: Normal Memory: Intact Attention: attentive Orientation: Alert and oriented Diagnoses: Encounter for Mental Health Evaluation Treatment Plan No scripts given Medical: per primary Disposition: Do not recommend acute psychiatric inpatient treatment The can stacker to give the patient all necessary outpatient resources Will sign off. Thanks [facility] staffed with Dr. Rosenthal Medications and Allergies Allergies Allergy/AdvReac Type Severity Reaction Status Date / Time No Known Allergies Allergy Verified 05/21/22 19:12 Active Meds: Active Medications Acetaminophen (Acetaminophen 500 Mg Tab) 1,000 mg PO Q6H PRN PRN Reason: Pain, Mild (1-3) Al Hydrox/Mg Hydrox/Simethicone (Alum-Mag Hydroxide-Simethicone [id number]/5ml Oral Liqd 30 Ml) 30 ml PO Q6H PRN PRN Reason: Indigestion Last Admin: 05/29/22 06:13 Dose: 30 ml Benzocaine/Menthol (Benzocaine/Menthol Lozenge) 1 each MM Q2H PRN PRN Reason: Sore Throat Last Admin: 05/30/22 09:23 Dose: 1 each Benzocaine/Menthol (Benzocaine/Menthol 20/0.5% [place] 56 Gm) 1 spray TP PRN PRN PRN Reason: Episiotomy Pain Bisacodyl (Bisacodyl 10 Mg Rect Supp) 10 mg OR BID PRN PRN Reason: Constipation Carboprost Tromethamine (Carboprost Tromethamine 250 Mcg/1 Ml Inj) 250 mcg IM ONCE PRN PRN Reason: Uterine Bleeding Diphenhydramine HCl (Diphenhydramine 25 Mg Cap) 25 mg PO Q6H PRN PRN Reason: Itching Diphtheria/Tetanus/Acell Pertussis (Tetanus,Diph,Pertuss(Acell) Vaccine 0.5 Ml Syringe) 0.5 ml IM .ONCE ONE Stop: 05/31/22 10:01 Docusate Sodium (Docusate Sodium 100 Mg Cap) 100 mg PO BID ELENA Hydralazine HCl (Hydralazine 20 Mg/1 Ml Inj) 10 mg IV Q30MIN PRN PRN Reason: Blood Pressure Last Admin: 05/29/22 22:21 Dose: 10 mg Magnesium Sulfate (Magnesium Sulfate 40gm/1000ml) 40 gm in 1,000 mls @ 50 mls/hr IV DIRECT ELENA Oxytocin/Sodium Chloride (Pitocin/Ns 30 Unit/500ml) 30 units in 500 mls @ 40 mls/hr IV TITR ELENA; Protocol Ibuprofen (Ibuprofen 600 Mg Tab) 600 mg PO Q6H ELENA Labetalol HCl (Labetalol 200 Mg Tab) 200 mg PO Q8HR ELENA Last Admin: 05/30/22 07:29 Dose: 200 mg Labetalol HCl (Labetalol 100 Mg Tab) 100 mg PO Q8HR ELENA Loperamide HCl (Loperamide 2 Mg Cap) 2 mg PO ONCE PRN PRN Reason: give with Hemabate Magnesium Hydroxide (Magnesium Hydroxide (Mom) Oral Liqd Udc) 30 ml PO HS PRN PRN Reason: Constipation Misoprostol (Misoprostol 100 Mcg Tab) 800 mcg OR ONCE PRN PRN Reason: Uterine Bleeding Multivitamins/Iron/Calcium ( Ajb95-Ro Fumarate-Folic Acid Vit Tab) 1 each PO QDAY ELENA Ondansetron HCl (Ondansetron 4 Mg/2 Ml Inj) 4 mg IV Q8H PRN PRN Reason: Nausea And Vomiting Oxycodone/Acetaminophen (Oxycodone /Acetaminophen 5-325mg Tab) 1 tab PO Q6H PRN PRN Reason: Pain, Moderate (4-6) Oxytocin (Oxytocin 10 Unit/1 Ml Inj) 10 unit IM ONCE PRN PRN Reason: Uterine Bleeding Promethazine HCl (Promethazine 25 Mg Rect Supp) 25 mg OR Q6H PRN PRN Reason: Nausea And Vomiting Promethazine HCl (Promethazine 25 Mg Tab) 25 mg PO Q6H PRN PRN Reason: Nausea And Vomiting Sodium Chloride (Sodium Chloride 0.9% 10 Ml Flush Syringe) 10 ml IV PRN PRN PRN Reason: flush Witch Tiffany/Glycerin (Witch Tiffany/ Glycerin Pad) 1 each TP PRN PRN PRN Reason: Hemorrhoid/cleansing/soothing Mental Status Exam - Vital signs Last Vital Signs Temp 98.9 F 05/30/22 11:30 Pulse 87 05/30/22 13:16 Resp 16 05/30/22 11:30 BP 155/96 05/30/22 13:09 Pulse Ox 96 05/30/22 13:16 Results Result Diagrams: 05/30/22 04:18 05/30/22 04:18 Abnormal lab results 05/30/22 05/30/22 05/30/22 Range/Units 04:18 04:18 04:18 WBC 21.5 H (4.5-11.0) K/mm3 RDW 12.9 L (13.2-15.2) % Sodium 134 L (137-145) mmol/L Potassium 5.3 H (3.6-5.0) mmol/L Carbon Dioxide 19 L (22-30) mmol/L BUN 28 H (7-17) mg/dL Calcium 8.1 L (8.4-10.2) mg/dL Magnesium 5.40 H (1.7-2.3) mg/dL Total Protein 4.4 L (6.3-8.2) g/dL Albumin 2.6 L (3.9-5) g/dL All other labs normal.
[2022-05-30] MEDS ORDERED: MAGNESIUM HYDROXIDE (MOM) ORAL LIQD UDC PO PRN (22:00)
[2022-05-30] MEDS ORDERED: ZOLPIDEM 5 MG TAB PO ONE (23:14)
--- NOTE | 2022-05-31 01:15 | XRay Report ---
CHEST 1 VIEW INDICATION / CLINICAL INFORMATION: evaluate for pumonary edema. COMPARISON: None available. FINDINGS: SUPPORT DEVICES: None. HEART / MEDIASTINUM: Heart size is within normal limits. Mediastinal contour demonstrates no signific ant abnormality. LUNGS / PLEURA: Lungs are clear for degree of inspiration and technique utilized. BONES: No significant osseous abnormality. ADDITIONAL FINDINGS: No significant additional findings. IMPRESSION: 1. No active cardiopulmonary disease. Signer Name: Darien Pérez II, MD Signed: 05/31/2022 1:11 AM Workstation Name: [id number]
[2022-05-31 01:16] LABS: BUN/Creatinine Ratio 24; Blood Urea Nitrogen 24 mg/dL (7-17); Calcium 7.1 mg/dL (8.4-10.2); Hemolysis Index 22
[2022-05-31 07:47] LABS: Basophils % (Auto) 0.1 % (0.0-1.8); Eosinophils # (Auto) 0.1 K/mm3 (0.0-0.4); Eosinophils % (Auto) 1.2 % (0.0-4.3); Hematocrit 33.5 % (30.3-42.9); Lymphocytes # (Auto) 1.6 K/mm3 (1.2-5.4); Lymphocytes % (Auto) 12.6 % (13.4-35.0); Mean Corpuscular HGB Conc 33 % (30-34); Mean Corpuscular Volume 90 fl (79-97); Monocytes # (Auto) 0.9 K/mm3 (0.0-0.8); Monocytes % (Auto) 7.5 % (0.0-7.3); Platelet Count 154 K/mm3 (140-440); Red Blood Count 3.71 M/mm3 (3.65-5.03); Red Cell Distribution Width 13.3 % (13.2-15.2)
[2022-05-31 07:54] LABS: Alanine Aminotransferase 10 units/L (7-56); Albumin 2.3 g/dL (3.9-5); BUN/Creatinine Ratio 28; Blood Urea Nitrogen 22 mg/dL (7-17); Calcium 7.6 mg/dL (8.4-10.2); Hemolysis Index 1
--- NOTE | 2022-05-31 07:54 | Progress Note ---
Assessment and Plan A: 21 y.o. s/p of IUFD, Pre-eclampsia with severe features, hyperkalemia. - Patient Problems (1) Hyperkalemia Current Visit: Yes Status: Acute Plan to address problem: s/p Kionex K+ now WNL @ 4.7 (2) IUFD at 20 weeks or more of gestation Current Visit: Yes Status: Acute Plan to address problem: Grieving appropriately. s/p psych consult. - do not recommend inpatient treatment. Will continue to monitor for s/sx of depression. (3) Pre-eclampsia Current Visit: Yes Status: Acute Plan to address problem: Continue with Labetalol 300mg TID. Continue to monitor blood pressures. Continue to monitor for s/sx of worsening Pre-eclampsia. If blood pressures remain stable, will transfer to mother/baby unit. Subjective - Subjective Date of service: 05/31/22 Principal diagnosis: , IUFD @ 24 wks, s/p mag d/t Pre-eclampsia with severe features Interval history: Pt doing well. Having some nose bleeds. We discussed that the nose bleeds could be d/t her blood pressures being elevated recently and that we will continue to monitor. Denies EPSTEIN, blurred vision, spots before her eyes, chest pain, shortness of breath, and upper abdominal pain. Patient reports: appetite normal, voiding normally, pain well controlled, ambulating normally [place]: Objective - Vital Signs Latest vital signs: Vital Signs Temp Pulse Resp BP BP Pulse Ox Pulse Ox 05/31/22 07:48 77 L 05/31/22 07:47 79 80 L 05/31/22 07:42 80 100 05/31/22 07:37 50 L 90 05/31/22 07:34 99 05/31/22 07:29 50 L 100 05/31/22 07:24 51 L 94 05/31/22 07:19 52 L 100 05/31/22 07:18 90 05/31/22 07:13 90 05/31/22 07:11 31 L 72 L 05/31/22 07:07 40 L 05/31/22 07:03 62 97 05/31/22 07:02 79 L 05/31/22 06:58 54 L 81 L 05/31/22 06:57 80 L 05/31/22 06:53 25 L 79 L 05/31/22 06:51 80 L 05/31/22 06:46 76 L 05/31/22 06:36 81 L 05/31/22 06:31 53 L 77 L 05/31/22 06:29 131 H 76 L 05/31/22 06:25 75 L 05/31/22 06:22 41 L 73 L 05/31/22 06:20 74 L 05/31/22 06:16 235 H 82 L 05/31/22 06:15 86 05/31/22 06:09 89 82 L 05/31/22 06:06 72 95 05/31/22 06:01 74 97 05/31/22 05:56 91 H 97 05/31/22 05:53 75 152/94 05/31/22 05:51 76 97 05/31/22 05:46 78 97 05/31/22 05:41 76 96 05/31/22 05:36 84 95 05/31/22 05:31 72 95 05/31/22 05:26 71 95 05/31/22 05:21 69 96 05/31/22 05:16 89 96 05/31/22 05:11 67 96 05/31/22 05:06 73 95 05/31/22 05:01 72 95 05/31/22 04:56 70 95 05/31/22 04:51 98.2 F 74 14 95 05/31/22 04:50 75 144/81 05/31/22 04:46 89 94 05/31/22 04:41 74 93 05/31/22 04:36 76 93 05/31/22 04:31 76 94 05/31/22 04:26 74 93 05/31/22 04:21 77 94 05/31/22 04:16 79 94 05/31/22 04:11 77 94 05/31/22 04:06 78 93 05/31/22 04:01 83 94 05/31/22 03:59 83 93 05/31/22 03:56 82 94 05/31/22 03:53 85 94 05/31/22 03:51 81 94 05/31/22 03:46 84 94 05/31/22 03:44 83 94 05/31/22 03:41 84 94 05/31/22 03:36 87 93 05/31/22 03:31 77 93 05/31/22 03:26 78 93 05/31/22 03:22 93 H 145/91 05/31/22 03:21 98 H 95 05/31/22 03:15 82 91 05/31/22 03:10 82 91 05/31/22 03:05 83 91 05/31/22 03:00 81 92 05/31/22 02:55 82 92 05/31/22 02:50 83 92 05/31/22 02:45 83 92 05/31/22 02:40 83 93 05/31/22 02:35 82 94 05/31/22 02:34 84 94 05/31/22 02:30 88 95 05/31/22 02:27 85 94 05/31/22 02:25 89 95 05/31/22 02:20 83 95 05/31/22 02:18 86 154/90 05/31/22 02:15 88 94 05/31/22 02:10 88 95 05/31/22 02:05 105 H 93 05/31/22 02:04 90 158/98 05/31/22 02:02 87 153/95 05/31/22 02:00 97 H 94 05/31/22 01:21 87 94 05/31/22 01:18 91 H 147/85 05/31/22 01:16 89 96 05/31/22 01:14 105 H 94 05/31/22 01:11 83 97 05/31/22 01:06 80 95 05/31/22 01:03 85 94 05/31/22 01:01 84 95 05/31/22 00:56 81 96 05/31/22 00:52 79 156/82 05/31/22 00:51 96 H 96 05/31/22 00:48 98.1 F 82 16 171/88 156/82 96 05/31/22 00:46 84 96 05/30/22 23:18 81 141/87 05/30/22 22:48 78 153/93 05/30/22 22:17 76 L 05/30/22 22:15 75 166/92 05/30/22 22:12 77 77 L 05/30/22 22:04 121 H 78 L 05/30/22 22:03 84 05/30/22 21:46 73 L 05/30/22 21:21 68 0 L 05/30/22 21:06 174 H 78 L 05/30/22 21:01 72 L 05/30/22 20:54 76 L 05/30/22 20:48 98.1 F 82 16 150/90 100 05/30/22 20:47 80 150/91 05/30/22 20:45 60 78 L 05/30/22 20:44 82 100 05/30/22 20:39 96 05/30/22 18:40 75 144/82 05/30/22 18:38 98.6 F 16 05/30/22 18:25 82 144/85 05/30/22 18:10 74 144/81 05/30/22 17:55 80 145/79 05/30/22 17:40 75 155/94 05/30/22 17:36 16 05/30/22 17:34 82 155/94 05/30/22 16:47 91 H 96 05/30/22 16:46 76 142/73 05/30/22 16:43 81 94 05/30/22 16:42 79 96 05/30/22 16:37 79 97 05/30/22 16:34 81 94 05/30/22 16:32 89 94 05/30/22 16:30 16 05/30/22 16:27 74 93 05/30/22 16:25 80 94 05/30/22 16:22 74 92 05/30/22 16:17 73 92 05/30/22 16:12 75 92 05/30/22 16:10 75 155/100 05/30/22 16:07 82 94 05/30/22 16:06 64 0 L 05/30/22 15:59 86 72 L 05/30/22 15:57 36 L 0 L 05/30/22 15:50 83 94 05/30/22 15:47 85 95 05/30/22 15:45 86 94 05/30/22 15:42 87 93 05/30/22 15:40 85 125/72 05/30/22 15:37 85 16 93 05/30/22 15:35 88 94 05/30/22 15:32 89 94 05/30/22 15:30 98.2 F 16 05/30/22 15:29 90 94 05/30/22 15:27 91 H 95 05/30/22 15:24 90 130/79 94 05/30/22 15:23 88 127/81 05/30/22 15:22 91 H 95 05/30/22 15:17 92 H 95 05/30/22 15:12 86 96 05/30/22 15:10 89 94 05/30/22 15:07 86 96 05/30/22 15:02 86 96 05/30/22 14:57 92 H 95 05/30/22 14:55 74 94 05/30/22 14:52 77 92 05/30/22 14:47 74 93 05/30/22 14:42 76 92 05/30/22 14:41 87 94 05/30/22 14:40 80 150/89 05/30/22 14:37 79 94 05/30/22 14:33 76 94 05/30/22 14:32 75 94 05/30/22 14:30 98.7 F 16 05/30/22 14:27 76 157/92 94 05/30/22 14:25 76 165/96 94 05/30/22 14:22 81 95 05/30/22 14:20 82 94 05/30/22 14:16 82 94 05/30/22 14:12 78 94 05/30/22 14:11 80 151/90 95 05/30/22 14:06 77 94 05/30/22 14:04 79 94 05/30/22 14:01 77 93 05/30/22 13:59 80 94 05/30/22 13:56 83 94 05/30/22 13:52 80 94 05/30/22 13:51 84 95 05/30/22 13:46 79 96 05/30/22 13:44 85 94 05/30/22 13:41 80 95 05/30/22 13:39 81 94 05/30/22 13:36 83 95 05/30/22 13:31 82 96 05/30/22 13:30 98.8 F 16 05/30/22 13:26 82 96 05/30/22 13:21 90 96 05/30/22 13:16 87 96 05/30/22 13:11 89 97 05/30/22 13:09 83 155/96 05/30/22 13:06 85 147/92 96 05/30/22 13:01 84 97 05/30/22 12:56 89 97 05/30/22 12:51 85 96 05/30/22 12:46 92 H 97 05/30/22 12:41 88 96 05/30/22 12:40 90 153/85 05/30/22 12:36 82 96 05/30/22 12:31 88 96 05/30/22 12:30 98.3 F 16 05/30/22 12:26 81 96 05/30/22 12:25 83 153/88 05/30/22 12:21 85 148/84 96 05/30/22 12:16 86 97 05/30/22 12:11 83 96 05/30/22 12:06 85 97 05/30/22 12:01 92 H 97 05/30/22 11:56 92 H 96 05/30/22 11:54 95 H 94 05/30/22 11:51 92 H 96 05/30/22 11:46 79 94 05/30/22 11:41 82 94 05/30/22 11:36 84 94 05/30/22 11:31 82 94 05/30/22 11:30 98.9 F 16 96 05/30/22 11:26 82 94 05/30/22 11:25 83 136/72 05/30/22 11:23 84 94 05/30/22 11:21 84 95 05/30/22 11:17 85 94 05/30/22 11:16 81 94 05/30/22 11:11 83 94 05/30/22 11:10 92 H 131/79 05/30/22 11:08 82 94 05/30/22 11:06 81 94 05/30/22 11:01 81 94 05/30/22 10:56 82 94 05/30/22 10:54 84 132/80 94 05/30/22 10:51 84 94 05/30/22 10:46 83 93 05/30/22 10:44 87 94 05/30/22 10:41 81 93 05/30/22 10:36 85 93 05/30/22 10:31 86 93 05/30/22 10:30 99.4 F 16 05/30/22 10:26 83 93 05/30/22 10:22 86 94 05/30/22 10:21 99 H 93 05/30/22 10:16 84 93 05/30/22 10:11 85 130/68 93 05/30/22 10:06 85 92 05/30/22 10:04 90 94 05/30/22 10:01 84 92 05/30/22 09:56 86 93 05/30/22 09:51 85 93 05/30/22 09:48 85 94 05/30/22 09:46 86 93 05/30/22 09:41 85 93 05/30/22 09:40 87 128/74 94 05/30/22 09:36 88 93 05/30/22 09:31 87 94 05/30/22 09:30 18 05/30/22 09:26 93 H 93 05/30/22 09:21 96 H 93 05/30/22 09:20 92 H 93 05/30/22 09:16 89 92 05/30/22 09:11 94 H 94 05/30/22 09:10 96 H 142/81 05/30/22 09:06 91 H 92 05/30/22 09:01 90 91 05/30/22 08:56 98 H 90 05/30/22 08:55 93 H 138/74 05/30/22 08:51 99 H 91 05/30/22 08:46 89 91 05/30/22 08:41 93 H 89 05/30/22 08:40 95 H 139/76 05/30/22 08:36 95 H 90 05/30/22 08:31 95 H 92 05/30/22 08:30 99.0 F 16 05/30/22 08:25 93 H 143/78 90 05/30/22 08:20 95 H 91 05/30/22 08:16 96 H 143/75 05/30/22 08:15 99 H 93 05/30/22 08:11 94 H 94 05/30/22 08:10 98 H 93 05/30/22 08:05 104 H 93 05/30/22 08:02 96 H 94 05/30/22 08:00 98 H 92 05/30/22 07:56 105 H 93 05/30/22 07:55 105 H 95 Intake and Output 05/30/22 05/31/22 05/31/22 22:59 06:59 14:59 Output Total 2510 1850 Balance -2510 -1850 Output: Urine 0 1850 Indwelling Catheter 0 1850 Other: Total, Output Amount 900 300 - Exam Cardiovascular: Present: Normal S1, Normal S2 Lungs: Present: Clear to auscultation Abdomen: Present: normal appearance, soft, normal bowel sounds Uterus: Present: normal Extremities: Present: edema (+ 2 to bilateral lower extremitites.) Deep Tendon Reflex Grade: Normal +2 - Labs Labs: Abnormal lab results 05/30/22 05/30/22 05/31/22 Range/Units 15:32 21:22 00:35 WBC (4.5-11.0) K/mm3 Lymph % (Auto) (13.4-35.0) % [place] % (Auto) (0.0-7.3) % [place] # (Auto) (0.0-0.8) K/mm3 Seg Neutrophils % (40.0-70.0) % Seg Neutrophils # (1.8-7.7) K/mm3 Sodium (137-145) mmol/L Carbon Dioxide (22-30) mmol/L BUN (7-17) mg/dL Glucose (65-100) mg/dL Calcium (8.4-10.2) mg/dL Magnesium 6.70 H 6.60 H 6.20 H (1.7-2.3) mg/dL 05/31/22 05/31/22 Range/Units 00:35 06:00 WBC 12.6 H (4.5-11.0) K/mm3 Lymph % (Auto) 12.6 L (13.4-35.0) % [place] % (Auto) 7.5 H (0.0-7.3) % [place] # (Auto) 0.9 H (0.0-0.8) K/mm3 Seg Neutrophils % 78.6 H (40.0-70.0) % Seg Neutrophils # 9.9 H (1.8-7.7) K/mm3 Sodium 136 L (137-145) mmol/L Carbon Dioxide 18 L (22-30) mmol/L BUN 24 H (7-17) mg/dL Glucose 111 H (65-100) mg/dL Calcium 7.1 L (8.4-10.2) mg/dL Magnesium (1.7-2.3) mg/dL
[2022-05-31] MEDS: hydrALAZINE 20 MG/1 ML INJ IV PRN (09:58)
[2022-05-31] MEDS ORDERED: TETANUS,DIPH,PERTUSS(ACELL) VACCINE 0.5 ML SYRINGE IM ONE (10:00)
[2022-05-31] MEDS ORDERED: PRENATAL VIT27-FE FUMARATE-FOLIC ACID VIT TAB PO SCH (10:00)
[2022-05-31] MEDS: IBUPROFEN 600 MG TAB PO SCH (14:57)
[2022-05-31] MEDS: DOCUSATE SODIUM 100 MG CAP PO SCH ×2 (14:57→22:31)
[2022-06-01] MEDS: IBUPROFEN 600 MG TAB PO SCH (01:07)
--- NOTE | 2022-06-01 12:14 | Discharge Summary ---
Providers - Providers Date of Admission: 05/21/22 19:44 Date of discharge: 06/01/22 (Pt has a very strong desire to go home. ) Attending physician: KRYSTAL MOTA 05/30/22 08:24 psychiatry consult [Consult to Mental Health] [CONS] Urgent Reason For Exam: anxiety/depression, recent 23wk loss Primary care physician: KRYSTAL MOTA Hospitalization Reason for admission: other (Pre-eclampsia with severe features.) Delivery: Episiotomy: none Laceration: none Other procedures: none complications: other (Pre-eclampsia with severe features. ) Discharge diagnosis: other (IUFD) baby: male Pertinent studies: Pt denies EPSTEIN, blurred vision, spots before her eyes, chest pain, shortness of breath, and upper abdominal pain. We discussed how to take a proper blood pressure, how to take her blood pressure medication, and when to call the on- call provider with questions/concerns. She would like resources for counseling. Provided numbers in discharge instructions. She denies wanting to harm herself, or anyone else. No SI. She has a strong desire to go home today. Hospital course: S: Pt doing well. Ambulating, voiding, passing flatus okay. O: VSS. Blood pressure ranges on 06/01 have been 115-140's/80's. Minimal vaginal bleeding noted. H/H 11.0/33.5 A: 21 y.o. s/p of IUFD, Pre-eclampsia with severe features, s/p magnesium infusion. In good condition . P: Discharge home with instructions. Pt to schedule blood pressure check in the office in 1 week. Pt to call the office with any concerns after discharge. Condition at discharge: Good Disposition: 01 HOME / SELF CARE / HOMELESS - Discharge Diagnoses (1) IUFD at 20 weeks or more of gestation Status: Acute (2) Pre-eclampsia Status: Acute Plan - Discharge Medications Prescriptions: Labetalol HCl [Labetalol 300mg TAB] 300 mg PO TID #90 - Provider Discharge Summary Activity: routine, no sex for 6 weeks, no heavy lifting 4 weeks, no strenuous exercise Diet: routine Instructions: routine Additional instructions: [] Smoking cessation referral if applicable(refer to patient education folder for contact #) [] Refer to [facility] Booklet Call your doctor immediately for: * Fever > 100.5 * Heavy vaginal bleeding ( >1 pad per hour) * Severe persistent headache * Shortness of breath * Reddened, hot, painful area to leg or breast - Follow up plan Follow up: KRYSTAL MOTA MD [Primary Care Provider] - 7 Days (- Sorry for your loss! - Thank you for allowing us to take care of you during this time of difficulty. - Please schedule an appointment in the office in 1 week. - To schedule appointments for counseling: [facility] , [facility] - Please call the health education director provider for the following: Blood pressure greater than or equal to 140/90 or greater after taking your blood pressure medication, headaches, blurred vision, spots before your eyes, chest pain, feeling like you can not catch your breath, severe pain in your belly, any of these symptoms with or without a blood pressure of 140/90 or greater. - Please take your Labetalol three times a day. - Please take your blood pressure at least once daily as instructed. - If you have any questions or concerns after discharge, please do not hesitate to call the office at . ) Forms: [facility] Discharge Summary
[2022-06-01 17:38] VITALS: BP 114/72
== END 2022-06-01 14:20 | disposition home or self-care (01) | DRG 774 ==
LOC: LD 16:45 → TRG 16:45 → LD 19:44 → OB 05-31 09:08
PROVIDERS: ADMIT Obstetrics & Gynecology; ATTEND Obstetrics & Gynecology
PROC: 10E0XZZ Delivery of Products of Conception, External Approach (ICD-10-PCS; principal; 2022-05-30)
PROC: 3E0P7VZ Introduction of Hormone into Female Reproductive, Via Natural or Artificial Opening (ICD-10-PCS; 2022-05-30)
PROC: 3E0234Z Introduction of Serum, Toxoid and Vaccine into Muscle, Percutaneous Approach (ICD-10-PCS; 2022-05-31)
DX: O36.4XX0 Maternal care for intrauterine death, not applicable or unspecified (principal); O99.412 Diseases of the circulatory system complicating pregnancy, second trimester; Z37.1 Single stillbirth; O36.5920 Maternal care for other known or suspected poor fetal growth, second trimester, not applicable or unspecified; Z20.822 Contact with and (suspected) exposure to COVID-19; Z3A.22 22 weeks gestation of pregnancy; O14.14 Severe pre-eclampsia complicating childbirth; O99.284 Endocrine, nutritional and metabolic diseases complicating childbirth; O32.1XX0 Maternal care for breech presentation, not applicable or unspecified; Z23 Encounter for immunization
CPT/HCPCS: 36415; 71045; 76805; 76815; 76816; 80048; 80053; 80076; 82565; 82570; 82575; 83615; 83735; 84112; 84156; 84450; 84460; 84550; 85025; 85027; 86850; 86870; 86900; 86901; 87591; 88305; G0378; J0360; J0595; J0702; J2590; J3475; J7120; Q0177; U0003

== ENCOUNTER 2022-06-02 07:33 | Inpatient (IN) | payer MEDICAID ==
--- NOTE | 2022-06-02 09:32 | XRay Report ---
CHEST 1 VIEW 06/02/2022 9:20 AM INDICATION / CLINICAL INFORMATION: Dyspnea. COMPARISON: 05/31/2022 FINDINGS: SUPPORT DEVICES: None. HEART / MEDIASTINUM: No significant abnormality. LUNGS / PLEURA: No significant pulmonary or pleural abnormality. No pneumothorax. ADDITIONAL FINDINGS: No significant additional findings. IMPRESSION: 1. No acute findings. Signer Name: Mark Saha Jr, MD Signed: 06/02/2022 9:28 AM Workstation Name: [id number]
[2022-06-02 09:53] LABS: Basophils # (Auto) 0.1 K/mm3 (0.0-0.1); Basophils % (Auto) 0.4 % (0.0-1.8); Eosinophils # (Auto) 0.2 K/mm3 (0.0-0.4); Eosinophils % (Auto) 1.9 % (0.0-4.3); Hematocrit 32.6 % (30.3-42.9); Hemoglobin 10.9 gm/dl (10.1-14.3); Lymphocytes # (Auto) 1.7 K/mm3 (1.2-5.4); Lymphocytes % (Auto) 12.8 % (13.4-35.0); Mean Corpuscular HGB Conc 33 % (30-34); Mean Corpuscular Volume 90 fl (79-97); Monocytes # (Auto) 0.9 K/mm3 (0.0-0.8); Monocytes % (Auto) 7.1 % (0.0-7.3); Platelet Count 157 K/mm3 (140-440); Red Blood Count 3.61 M/mm3 (3.65-5.03); Red Cell Distribution Width 13.5 % (13.2-15.2)
[2022-06-02 10:09] LABS: C-Reactive Protein 0.7 mg/dL (0.00-1.30); Uric Acid 8.7 mg/dL (3.5-7.6)
[2022-06-02 10:11] LABS: Creatine Kinase MB 2.2 ng/mL (0.0-4.0)
[2022-06-02 10:15] LABS: Alanine Aminotransferase 16 units/L (7-56); Albumin 2.5 g/dL (3.9-5); BUN/Creatinine Ratio 15; Blood Urea Nitrogen 12 mg/dL (7-17); Calcium 8.4 mg/dL (8.4-10.2); Hemolysis Index 3
[2022-06-02 10:36] LABS: RBC,Urine < 1.0 /HPF (0.0-6.0)
[2022-06-02 10:38] LABS: INR 0.77 (0.87-1.13)
[2022-06-02 10:46] LABS: Color,Urine Yellow (Yellow); WBC,Urine < 1.0 /HPF (0.0-6.0)
[2022-06-02] MEDS ORDERED: hydrALAZINE 20 MG/1 ML INJ IV ONE ×2 (10:56→12:42)
--- NOTE | 2022-06-02 11:50 | Emergency Department Report ---
ED General Adult HPI - General Chief complaint: High BP Stated complaint: HBP PUI?: No Time Seen by Provider: 06/02/22 09:03 Source: patient Mode of arrival: Ambulatory Limitations: No Limitations - History of Present Illness Initial comments: Patient present to ED with c/o HBP, patient states she was discharged home yesterday from labor and delivery s/p still born . Patient states she was dx with pre clampsia. -: days(s) Location: chest Severity scale (0 -10): 0 Worsens with: none Associated Symptoms: headaches, shortness of breath Treatments Prior to Arrival: none - Related Data Previous Rx's Medication Instructions Recorded Last Taken Type Labetalol HCl [Labetalol 300mg TAB] 300 mg PO TID #90 06/01/22 Unknown Rx Allergies Allergy/AdvReac Type Severity Reaction Status Date / Time No Known Allergies Allergy Verified 06/02/22 07:47 ED Review of Systems ROS: Stated complaint: HBP Other details as noted in HPI Constitutional: denies: chills, fever Eyes: denies: eye pain, eye discharge, vision change ENT: denies: ear pain, throat pain Respiratory: denies: cough, shortness of breath, wheezing Cardiovascular: denies: chest pain, palpitations Endocrine: no symptoms reported Gastrointestinal: denies: abdominal pain, nausea, diarrhea Genitourinary: denies: urgency, dysuria, discharge Musculoskeletal: denies: back pain, joint swelling, arthralgia Skin: denies: rash, lesions Neurological: denies: headache, weakness, paresthesias Psychiatric: denies: anxiety, depression Hematological/Lymphatic: denies: easy bleeding, easy bruising ED Past Medical Hx - Past Medical History Hx Hypertension: No Hx Congestive Heart Failure: No Hx Diabetes: No Hx Deep Vein Thrombosis: No Hx Renal Disease: No Hx Sickle Cell Disease: No Hx Seizures: No Hx Asthma: No Hx COPD: No Hx HIV: No - Social History Smoking Status: Former Smoker Substance Use Type: None - Medications Home Medications: Home Medications Medication Instructions Recorded Confirmed Last Taken Type Labetalol HCl [Labetalol 300mg TAB] 300 mg PO TID #90 06/01/22 Unknown Rx ED Physical Exam - General Limitations: No Limitations General appearance: alert, in no apparent distress - Head Head exam: Present: atraumatic, normocephalic - Eye Eye exam: Present: normal appearance - ENT ENT exam: Present: mucous membranes moist - Neck Neck exam: Present: normal inspection - Respiratory Respiratory exam: Present: normal lung sounds bilaterally, rales. Absent: r espiratory distress - Cardiovascular Cardiovascular Exam: Present: regular rate, normal rhythm. Absent: systolic murmur, diastolic murmur, rubs, gallop - GI/Abdominal GI/Abdominal exam: Present: soft, normal bowel sounds - Extremities Exam Extremities exam: Present: normal inspection, pedal edema - Back Exam Back exam: Present: normal inspection - Neurological Exam Neurological exam: Present: alert, oriented X3 - Psychiatric Psychiatric exam: Present: normal affect, normal mood - Skin Skin exam: Present: warm, dry, intact, normal color. Absent: rash ED Course Vital Signs 06/02/22 06/02/22 06/02/22 07:43 08:57 09:32 Temperature 98.8 F 97.8 F Pulse Rate 96 H 88 78 Respiratory 18 20 Rate Blood Pressure 161/107 153/107 Blood Pressure 193/135 161/107 [Right] O2 Sat by Pulse 95 98 Oximetry 06/02/22 06/02/22 06/02/22 09:46 11:03 11:13 Temperature Pulse Rate 84 89 76 Respiratory 20 20 Rate Blood Pressure 161/112 Blood Pressure 158/98 147/96 [Right] O2 Sat by Pulse 97 97 Oximetry ED Medical Decision Making - Lab Data Result diagrams: 06/02/22 09:29 06/02/22 09:29 - EKG Data -: EKG Interpreted by Mt EKG shows normal: sinus rhythm Rate: normal - EKG Data When compared to previous EKG there are: no significant change - Radiology Data Radiology results: report reviewed, image reviewed - Medical Decision Making work up showed prtoteinuria , labetalol given with hdyrlaalzine , spoke with dr Baird will admit her Critical care attestation.: If time is entered above; I have spent that time in minutes in the direct care of this critically ill patient, excluding procedure time. ED Disposition Clinical Impression: Uncontrolled hypertension, Proteinuria Disposition: ADMITTED INPATIENT Is pt being admited?: Yes Does the pt Need Aspirin: No Condition: Stable Instructions: Hypertension (ED) Referrals: PRIMARY CARE,MD [Primary Care Provider] - 3-5 Days
[2022-06-02] MEDS ORDERED: MAGNESIUM SULFATE 4 GM/100 ML BAG IV ONE (12:50)
[2022-06-02] MEDS ORDERED: DOCUSATE SODIUM 100 MG CAP PO PRN (13:00)
[2022-06-02] MEDS ORDERED: SENNOSIDES/DOCUSATE SODIUM 8.6/50 MG TAB PO PRN (13:00)
[2022-06-02] MEDS ORDERED: ACETAMINOPHEN 325 MG TAB PO PRN (13:00)
[2022-06-02] MEDS ORDERED: ALUM-MAG HYDROXIDE-SIMETHICONE 200-200-20MG/5ML ORAL LIQD 30 ML PO PRN (13:00)
[2022-06-02] MEDS ORDERED: ONDANSETRON 4 MG/2 ML INJ IV PRN (13:00)
[2022-06-02] MEDS: LACTATED RINGERS 1,000 ML IV SCH (14:52)
[2022-06-02] MEDS: MAGNESIUM SULFATE 40GM/1000ML 40 GM/1,000 ML BAG IV SCH (15:14)
[2022-06-02] MEDS ORDERED: hydrALAZINE 20 MG/1 ML INJ ONE (17:00)
[2022-06-02] MEDS ORDERED: hydrALAZINE 20 MG/1 ML INJ IV NR (17:00)
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
[2022-06-02] MEDS ORDERED: FUROSEMIDE 40 MG/4 ML INJ IV ONE (22:10)
--- NOTE | 2022-06-02 22:15 | Event Note ---
Date: 06/02/22 Patient now awake. Discussed treatment plans with patient and her mother. Precautions given for severe preeclampsia. Patient LFTs and creatinines are within normal limits no signs of help at this moment we will continue to monitor labs and titrate any hypertensive meds as needed. We will continue her magnesium sulfate for 24 hours.
[2022-06-02] MEDS: oxyCODONE /ACETAMINOPHEN 5-325MG TAB PO PRN (22:28)
[2022-06-03] MEDS: MAGNESIUM SULFATE 40GM/1000ML 40 GM/1,000 ML BAG IV SCH (03:45)
[2022-06-03] MEDS: oxyCODONE /ACETAMINOPHEN 5-325MG TAB PO PRN (04:13)
[2022-06-03] MEDS: LACTATED RINGERS 1,000 ML IV SCH (04:18)
--- NOTE | 2022-06-03 07:48 | Progress Note ---
Assessment and Plan Mag to continue x 24 hrs. will continue labetalol 300 q8hr and add procardia XL 30mg PO QD. Edema is much improved after dose of lasix - output adequate. Discussed with patient and mother she will likely not go home until at the earliest. - Patient Problems (1) Preeclampsia in period Current Visit: Yes Status: Acute Subjective - Subjective Date of service: 06/03/22 Principal diagnosis: pre-e readmit; mag sulfate s/p IUFD Patient reports: appetite normal, other (slight EPSTEIN), no nauseated [place]: Objective - Vital Signs Latest vital signs: Vital Signs Temp Pulse Resp BP BP Pulse Ox Pulse Ox 06/03/22 07:42 72 97 06/03/22 07:37 65 98 06/03/22 07:32 69 98 06/03/22 07:27 79 97 06/03/22 07:22 85 97 06/03/22 07:17 92 H 97 06/03/22 07:00 80 133/66 06/03/22 06:00 70 138/84 06/03/22 05:00 71 130/70 06/03/22 04:00 75 146/89 06/03/22 03:58 98.4 F 79 16 98 06/03/22 03:40 79 98 06/03/22 03:35 71 96 06/03/22 03:30 72 97 06/03/22 03:25 70 97 06/03/22 03:20 65 96 06/03/22 03:15 65 96 06/03/22 03:10 63 97 06/03/22 03:05 63 96 06/03/22 03:00 68 152/89 96 06/03/22 02:55 74 97 06/03/22 02:50 85 98 06/03/22 02:45 70 96 06/03/22 02:40 68 96 06/03/22 02:35 70 96 06/03/22 02:30 68 98 06/03/22 02:25 71 97 06/03/22 02:20 71 96 06/03/22 02:15 81 97 06/03/22 02:10 85 99 06/03/22 02:05 94 H 98 06/03/22 02:00 87 136/74 97 06/03/22 01:56 97 H 94 06/03/22 01:55 81 95 06/03/22 01:50 79 95 06/03/22 01:45 78 95 06/03/22 01:40 78 95 06/03/22 01:35 76 95 06/03/22 01:30 75 95 06/03/22 01:25 73 95 06/03/22 01:20 75 95 06/03/22 01:15 70 97 06/03/22 01:10 77 96 06/03/22 01:05 72 96 06/03/22 01:00 78 166/98 97 06/03/22 00:55 73 96 06/03/22 00:50 75 95 06/03/22 00:45 86 96 06/03/22 00:40 88 97 06/03/22 00:35 76 97 06/03/22 00:30 77 95 06/03/22 00:25 84 96 06/03/22 00:20 76 97 06/03/22 00:15 87 95 06/03/22 00:10 85 98 06/03/22 00:05 79 97 06/03/22 00:00 87 160/103 98 06/02/22 23:55 80 97 06/02/22 23:53 75 175/114 06/02/22 23:51 81 176/116 06/02/22 23:50 98.0 F 79 16 97 06/02/22 23:45 82 97 06/02/22 23:40 82 98 06/02/22 23:35 90 98 06/02/22 23:30 86 98 06/02/22 23:25 89 97 06/02/22 23:20 84 96 06/02/22 23:15 86 96 06/02/22 23:10 98 H 97 06/02/22 23:05 80 96 06/02/22 23:00 95 H 97 06/02/22 22:55 96 H 97 06/02/22 22:50 87 97 06/02/22 22:45 82 97 06/02/22 22:40 78 98 06/02/22 22:35 79 98 06/02/22 22:30 95 H 98 06/02/22 22:25 86 97 06/02/22 22:20 79 98 06/02/22 22:15 90 98 06/02/22 22:10 82 99 06/02/22 22:05 96 H 98 06/02/22 22:00 90 98 06/02/22 21:55 91 H 98 06/02/22 21:53 81 146/81 06/02/22 21:50 87 98 06/02/22 21:45 86 97 06/02/22 21:40 95 H 164/109 97 06/02/22 21:35 95 H 98 06/02/22 21:30 89 97 06/02/22 21:25 87 97 06/02/22 21:20 81 97 06/02/22 21:15 87 98 06/02/22 21:10 87 132/84 99 06/02/22 21:05 90 98 06/02/22 21:00 89 99 06/02/22 20:55 90 99 06/02/22 20:50 96 H 98 06/02/22 20:45 83 97 06/02/22 20:40 85 159/104 98 06/02/22 20:35 89 98 06/02/22 20:30 92 H 97 06/02/22 20:25 93 H 98 06/02/22 20:20 97 H 98 06/02/22 20:15 100 H 98 06/02/22 20:10 88 171/100 98 06/02/22 20:05 89 97 06/02/22 20:00 94 H 98 06/02/22 19:55 91 H 96 06/02/22 19:50 88 97 06/02/22 19:45 89 158/104 97 06/02/22 19:44 88 165/100 06/02/22 19:40 111 H 78 L 06/02/22 19:35 53 L 79 L 06/02/22 19:30 84 98 06/02/22 19:25 86 98 06/02/22 19:20 88 98 06/02/22 19:18 98 06/02/22 19:10 92 H 131/71 06/02/22 18:40 85 111/59 06/02/22 18:10 92 H 125/64 06/02/22 17:40 91 H 146/97 06/02/22 17:10 85 154/99 06/02/22 17:06 165/106 06/02/22 16:46 78 165/106 06/02/22 16:40 85 168/112 06/02/22 16:10 85 175/113 06/02/22 15:09 91 H 163/79 06/02/22 15:05 94 H 156/81 06/02/22 14:30 98.4 F 84 20 156/100 97 06/02/22 13:18 100 H 164/105 06/02/22 12:43 82 161/107 06/02/22 11:13 76 20 147/96 97 06/02/22 11:03 89 161/112 06/02/22 09:46 84 20 158/98 97 06/02/22 09:32 78 153/107 06/02/22 08:57 97.8 F 88 20 161/107 161/107 98 Intake and Output 06/02/22 06/02/22 06/03/22 15:59 23:59 07:59 Intake Total 1297.500 Output Total 3200 1700 Balance -3200 -402.500 Intake: IV 1297.500 Lactated Ringers 1,000 ml 671.667 @ 50 mls/hr IV DIRECT ELENA Rx#:[id number] MAGNESIUM SULFATE 40GM/ 625.833 1000ML 40 gm In 1,000 ml @ 2 GM/HR 50 mls/hr IV DIRECT ELENA Rx#:[id number] Output: Urine 3200 1700 Indwelling Catheter 3200 1700 Other: Total, Output Amount 1800 400 Weight 108.862 kg 107.955 kg - Exam Cardiovascular: Present: Regular rate Lungs: Present: Normal air movement Abdomen: Present: normal appearance, soft Extremities: Present: edema (2+ pitting to Knee) Deep Tendon Reflex Grade: Normal +2 - Labs Labs: Abnormal lab results 06/02/22 06/02/22 06/02/22 Range/Units 09:29 09:29 09:29 WBC 13.0 H (4.5-11.0) K/mm3 RBC 3.61 L (3.65-5.03) M/mm3 Lymph % (Auto) 12.8 L (13.4-35.0) % [place] # (Auto) 0.9 H (0.0-0.8) K/mm3 Seg Neutrophils % 77.8 H (40.0-70.0) % Seg Neutrophils # 10.1 H (1.8-7.7) K/mm3 PT 11.8 L (12.2-14.9) Sec. INR 0.77 L (0.87-1.13) Chloride 107.5 H (98-107) mmol/L Uric Acid (3.5-7.6) mg/dL Magnesium (1.7-2.3) mg/dL NT-Pro-B Natriuret Pep (0-450) pg/mL Total Protein 4.4 L (6.3-8.2) g/dL Albumin 2.5 L (3.9-5) g/dL 06/02/22 06/02/22 06/03/22 Range/Units 09:29 20:55 00:34 WBC (4.5-11.0) K/mm3 RBC (3.65-5.03) M/mm3 Lymph % (Auto) (13.4-35.0) % [place] # (Auto) (0.0-0.8) K/mm3 Seg Neutrophils % (40.0-70.0) % Seg Neutrophils # (1.8-7.7) K/mm3 PT (12.2-14.9) Sec. INR (0.87-1.13) Chloride (98-107) mmol/L Uric Acid 8.7 H (3.5-7.6) mg/dL Magnesium 4.70 H 5.20 H (1.7-2.3) mg/dL NT-Pro-B Natriuret Pep 661.9 H (0-450) pg/mL Total Protein (6.3-8.2) g/dL Albumin (3.9-5) g/dL
[2022-06-03] MEDS ORDERED: ACETAMINOPHEN 325 MG TAB PO PRN (08:00)
[2022-06-03] MEDS ORDERED: NIFEdipine XL 30 MG TAB PO SCH ×2 (08:00→20:00)
[2022-06-03] MEDS ORDERED: BUTALB/ACETAMINOPHEN/CAFFEINE TAB PO SCH (09:00)
[2022-06-03 09:17] LABS: Basophils # (Auto) 0.1 K/mm3 (0.0-0.1); Basophils % (Auto) 0.5 % (0.0-1.8); Eosinophils # (Auto) 0.3 K/mm3 (0.0-0.4); Eosinophils % (Auto) 2.8 % (0.0-4.3); Hematocrit 32.2 % (30.3-42.9); Hemoglobin 10.7 gm/dl (10.1-14.3); Lymphocytes # (Auto) 1.8 K/mm3 (1.2-5.4); Lymphocytes % (Auto) 16.9 % (13.4-35.0); Mean Corpuscular HGB Conc 33 % (30-34); Mean Corpuscular Volume 90 fl (79-97); Monocytes # (Auto) 0.8 K/mm3 (0.0-0.8); Monocytes % (Auto) 7.8 % (0.0-7.3); Platelet Count 181 K/mm3 (140-440); Red Blood Count 3.59 M/mm3 (3.65-5.03); Red Cell Distribution Width 13.4 % (13.2-15.2)
[2022-06-03 09:40] LABS: Alanine Aminotransferase 23 units/L (7-56); Blood Urea Nitrogen 12 mg/dL (7-17); Hemolysis Index 5
[2022-06-03 09:55] LABS: BUN/Creatinine Ratio 17
[2022-06-03] MEDS ORDERED: hydrALAZINE 20 MG/1 ML INJ IV ONE (19:00)
[2022-06-03] MEDS: NIFEdipine XL 30 MG TAB PO SCH (21:08)
[2022-06-04] MEDS ORDERED: PROMETHAZINE 25 MG TAB PO PRN (00:38)
[2022-06-04] MEDS ORDERED: MAGNESIUM HYDROXIDE (MOM) ORAL LIQD UDC PO PRN (00:38)
[2022-06-04] MEDS ORDERED: ACETAMINOPHEN 325 MG TAB PO PRN (00:38)
[2022-06-04] MEDS ORDERED: LANOLIN/ZINC/DIMETHICONE (LANSINOH) 7 GM TP PRN (00:38)
[2022-06-04] MEDS ORDERED: IBUPROFEN 800 MG TAB PO PRN (00:38)
[2022-06-04] MEDS ORDERED: ONDANSETRON 4 MG/2 ML INJ IV PRN (00:38)
[2022-06-04] MEDS ORDERED: diphenhydrAMINE 25 MG CAP PO PRN (00:38)
[2022-06-04] MEDS ORDERED: PROMETHAZINE 25 MG RECT SUPP PR PRN (00:38)
[2022-06-04] MEDS ORDERED: WITCH HAZEL/ GLYCERIN PAD TP PRN (00:38)
[2022-06-04] MEDS ORDERED: ZOLPIDEM 5 MG TAB PO ONE (00:39)
--- NOTE | 2022-06-04 08:22 | Progress Note ---
Assessment and Plan A: 21 y.o. s/p of 24 wk IUFD, re-admit for Pre-eclampsia with severe features. - Patient Problems (1) Preeclampsia in period Current Visit: Yes Status: Acute Plan to address problem: Magnesium infusion has been turned off. Continue Labetalol 300mg TID and Procardia 30mg PO daily. Continue to monitor blood pressures. Monitor for worsening s/sx of Pre-eclampsia. Subjective - Subjective Date of service: 06/04/22 Principal diagnosis: pre-e readmit; mag sulfate s/p IUFD Interval history: Pt denies EPSTEIN, blurred vision, spots before her eyes, chest pain, upper abdominal pain, shortness of breath. Patient reports: appetite normal, voiding normally, pain well controlled, ambulating normally [place]: (IUFD @ 24 wks.) Objective - Vital Signs Latest vital signs: Vital Signs Temp Pulse Resp BP Pulse Ox Pulse Ox 06/04/22 07:37 80 118/63 06/04/22 06:37 85 128/70 06/04/22 06:07 98 F 94 H 16 132/62 95 06/04/22 06:04 86 94 06/04/22 04:37 85 120/71 06/04/22 03:37 97 H 131/69 06/04/22 02:59 90 142/76 06/04/22 00:37 76 131/80 06/04/22 00:30 97 06/04/22 00:28 98.1 F 84 16 97 06/04/22 00:21 84 06/03/22 23:37 80 141/83 06/03/22 23:01 87 143/94 06/03/22 22:37 86 142/89 06/03/22 21:39 96 H 141/80 06/03/22 21:09 86 165/79 06/03/22 21:00 90 172/94 06/03/22 20:25 82 130/78 06/03/22 20:10 79 135/73 06/03/22 19:55 84 133/74 06/03/22 19:40 93 H 135/69 06/03/22 19:25 86 136/71 06/03/22 19:10 89 141/69 06/03/22 18:55 90 140/72 06/03/22 18:49 95 H 122/77 06/03/22 18:44 101 H 142/82 06/03/22 18:25 102 H 155/82 06/03/22 18:22 158/103 06/03/22 18:10 80 158/103 06/03/22 17:55 91 H 155/107 06/03/22 17:40 84 149/98 06/03/22 17:25 79 144/98 06/03/22 17:12 80 140/85 06/03/22 17:03 75 151/90 06/03/22 17:01 93 H 97 06/03/22 16:56 75 95 06/03/22 16:51 83 97 06/03/22 16:46 85 96 06/03/22 16:41 92 H 95 06/03/22 16:38 95 H 92 06/03/22 16:36 94 H 96 06/03/22 16:31 72 95 06/03/22 16:26 71 96 06/03/22 16:21 72 96 06/03/22 16:17 74 96 06/03/22 16:12 71 96 06/03/22 16:06 72 96 06/03/22 16:02 74 97 06/03/22 15:56 76 97 06/03/22 15:51 84 97 06/03/22 15:47 75 98 06/03/22 15:41 76 97 06/03/22 15:05 71 94 06/03/22 15:01 69 94 06/03/22 14:56 73 95 06/03/22 14:53 78 94 06/03/22 14:51 71 96 06/03/22 14:47 75 93 06/03/22 14:46 72 95 06/03/22 14:41 67 95 06/03/22 14:36 73 96 06/03/22 14:31 71 96 06/03/22 14:27 66 97 06/03/22 14:21 75 97 06/03/22 14:16 78 98 06/03/22 14:11 85 96 06/03/22 14:07 72 156/97 97 06/03/22 14:01 74 96 06/03/22 13:56 76 96 06/03/22 13:51 74 98 06/03/22 13:46 73 96 06/03/22 13:41 78 96 06/03/22 13:36 76 98 06/03/22 13:31 74 97 06/03/22 13:26 74 97 06/03/22 13:21 74 97 06/03/22 13:16 72 96 06/03/22 13:11 75 96 06/03/22 13:06 75 96 06/03/22 13:01 73 96 06/03/22 12:56 73 96 06/03/22 12:51 79 97 06/03/22 12:46 77 97 06/03/22 12:41 79 97 06/03/22 12:36 76 136/85 97 06/03/22 12:31 77 97 06/03/22 12:26 77 97 06/03/22 12:21 80 97 06/03/22 12:16 77 97 06/03/22 12:11 81 96 06/03/22 12:06 88 97 06/03/22 12:01 71 96 06/03/22 11:56 70 96 06/03/22 11:51 71 96 06/03/22 11:46 74 97 06/03/22 11:41 77 98 06/03/22 11:40 73 135/87 06/03/22 11:36 78 97 06/03/22 11:31 70 97 06/03/22 11:26 74 97 06/03/22 11:21 75 97 06/03/22 11:16 78 96 06/03/22 11:11 85 97 06/03/22 11:06 73 95 06/03/22 11:01 73 96 06/03/22 10:56 72 95 06/03/22 10:51 74 96 06/03/22 10:46 79 95 06/03/22 10:41 79 95 06/03/22 10:36 71 95 06/03/22 10:31 69 95 06/03/22 10:26 71 95 06/03/22 10:21 76 95 06/03/22 10:16 77 96 06/03/22 10:11 78 141/87 06/03/22 10:00 100 06/03/22 09:17 79 98 06/03/22 09:12 82 98 06/03/22 09:07 87 98 06/03/22 09:02 85 98 06/03/22 08:57 73 97 06/03/22 08:53 89 94 09/13/22 08:52 75 95 06/03/22 08:47 72 95 06/03/22 08:42 68 96 06/03/22 08:37 70 97 06/03/22 08:32 89 97 06/03/22 08:27 78 98 06/03/22 08:22 69 98 - Exam Narrative Exam: Blood pressure ranges have been 118-147/62-86. Adequate I&O's. Breasts: Present: deferred Cardiovascular: Present: Normal S1, Normal S2 Lungs: Present: Clear to auscultation Abdomen: Present: normal appearance, soft Vulva: both: normal Uterus: Present: normal Extremities: Present: edema (+2 edema noted to bilateral lower extremities. ) - Labs Labs: Abnormal lab results 06/03/22 06/03/22 06/03/22 Range/Units 08:54 08:54 14:08 RBC 3.59 L (3.65-5.03) M/mm3 [place] % (Auto) 7.8 H (0.0-7.3) % Seg Neutrophils % 72.0 H (40.0-70.0) % Sodium 134 L (137-145) mmol/L Calcium 8.0 L (8.4-10.2) mg/dL Magnesium 5.40 H 5.50 H (1.7-2.3) mg/dL
--- NOTE | 2022-06-04 09:37 | Electrocardiograph Report ---
[facility] Test Date: 2022-06-02 Test Time: 09:30:06 Pat Name: CHERELLE BRADSHAW Department: Room: 2105 Gender: F Registered Nurse Nursery: [id number] : 2000 Requested By: MANUELA LYNCH Order Number: [id number] Reading MD: Dayo Fernandez Measurements Intervals [place] Rate: 69 P: 48 MS: 128 QRS: 55 QRSD: 74 T: 30 QT: 377 QTc: 405 Interpretive Statements Sinus rhythm Probable left atrial enlargement No previous ECG available for comparison Electronically Signed On 06-04-2022 9:37:23 EDT by Dayo Fernandez
[2022-06-04] MEDS: NIFEdipine XL 30 MG TAB PO SCH ×2 (10:16→21:25)
[2022-06-04] MEDS ORDERED: FUROSEMIDE 20 MG TAB PO SCH (19:56)
[2022-06-05] MEDS: NIFEdipine XL 30 MG TAB PO SCH (10:20)
[2022-06-05 18:17] VITALS: BP 143/89
--- NOTE | 2022-06-05 19:41 | Discharge Summary ---
Providers - Providers Date of Admission: 06/02/22 12:40 Date of discharge: 06/05/22 Attending physician: MARCIA OHARA Primary care physician: GYM ATTENDANT Hospitalization Reason for admission: other ( re-admit for Pre-eclampsia with severe features. ) complications: other (Pre-eclampsia with severe features. ) Hospital course: S: Pt doing well. Denies EPSTEIN, blurred vision, spots before her eyes, chest pain, shortness of breath, and upper abdominal pain. O: VSS. Blood pressure ranges have been 130-140's/70-90's. Pre-eclampsia labs have been normal. A: 21 y.o. readmission for Pre-eclampsia with severe features. In good condition . P: Discharge home with instructions. Pt to come to the clinic in 1 week for a blood pressure check. Condition at discharge: Good Disposition: 01 HOME / SELF CARE / HOMELESS - Discharge Diagnoses (1) Preeclampsia in period Status: Acute Plan - Discharge Medications Prescriptions: NIFEdipine XL [Procardia Xl] 30 mg PO Q12HR #60 tab - Provider Discharge Summary Activity: routine, no sex for 6 weeks, no heavy lifting 4 weeks, no strenuous exercise Diet: routine Instructions: routine Additional instructions: [] Smoking cessation referral if applicable(refer to patient education folder for contact #) [] Refer to [facility] Booklet Call your doctor immediately for: * Fever > 100.5 * Heavy vaginal bleeding ( >1 pad per hour) * Severe persistent headache * Shortness of breath * Reddened, hot, painful area to leg or breast - Follow up plan Follow up: TAMY ALEJO MD [Primary Care Provider] - 3-5 Days BRAXTON BLUE MD [Staff Physician] - 7 Days (- Sorry for the loss of your little one. - Thank you for allowing us to take care of you. - We will call you to schedule your blood pressure check after discharge. Expect a call from us on 06/05. - If you have the following symptomsm with or without a blood pressure of 160/110 or greater, please call the office for further instructions: headaches, blurred vision, feeling like you can't catch your breath, severe pain in your belly, spots before your eyes. - Please take your blood pressure medications as prescribed. - Should you have any questions or concerns after discharge, please do not hesitate to call us at . ) Forms: [facility] Discharge Summary, Discharge Signature Page
== END 2022-06-05 20:15 | disposition home or self-care (01) | DRG 776 ==
LOC: ED 07:33 → 3A 12:40 → LD 13:36 → OB 06-04 08:45
PROVIDERS: ADMIT Obstetrics & Gynecology; ATTEND Obstetrics & Gynecology
DX: O14.15 Severe pre-eclampsia, complicating the puerperium (principal); Z82.49 Family history of ischemic heart disease and other diseases of the circulatory system
CPT/HCPCS: 36415; 71045; 80048; 80053; 81001; 82550; 82553; 83690; 83735; 83880; 84450; 84460; 84484; 84550; 85025; 85610; 86140; 93005; 96374; 96375; 96376; 99285; G0378; J3490; J0360; J1940; J3475; J7120